=== PATIENT | female | born 1930 | race Caucasian/White ===

== ENCOUNTER 2016-09-26 08:53 | Inpatient (IN) | payer OTHER, MEDICARE ==
[2016-09-26] VITALS (7 sets, daily range): BP systolic 114–185; BP diastolic 55–117; PULSE 49–95; RESP 16–20; TEMP 97.4–99.5; O2SAT 89–98
[~2016-09-26] VITALS: Ht 167.6 cm; Wt 79.4 kg
[~2016-09-26 08:53] MED LIST: CALC250 PO; CHLO25 PO; FOLI1TAB PO; IRON325T2 OR; LISI-363 PO; MACR100C PO; MAGN30S PO; NORC7.5T PO; PROT40TA PO; SENN1TAB11 PO; SIMV10 PO; SLOWTAB PO; VITA100T13 PO; XARE10TA PO
[2016-09-26] MEDS ORDERED: ONDANSETRON HCL 4 MG/2 ML VIAL ONE (09:10)
[2016-09-26 09:24] LABS: AUTOMATED NEUTROPHIL # 7.5 TH/MM3 (1.8-7.7); BASOPHIL # 0.1 TH/MM3 (0-0.2); BASOPHIL % 0.5 % (0.0-2.0); EOSINOPHIL # 0.1 TH/MM3 (0-0.4); EOSINOPHIL % 0.6 % (0.0-4.0); HEMATOCRIT 33.9 % (35.0-46.0); HEMO FLAGS DIFF FINAL; LYMPH % 15.6 % (9.0-44.0); LYMPHOCYTE # 1.5 TH/MM3 (1.0-4.8); MEAN CELL VOLUME 91.9 FL (80.0-100.0); MEAN CORPUSCULAR HEMOGLOBIN 30.5 PG (27.0-34.0); MEAN CORPUSCULAR HGB CONC 33.2 % (32.0-36.0); MONO % 6.3 % (0.0-8.0); PLATELET COUNT 194 TH/MM3 (150-450); RED BLOOD COUNT 3.69 MIL/MM3 (4.00-5.30); RED CELL DISTRIBUTION WIDTH 13.4 % (11.6-17.2); WHITE BLOOD COUNT 9.8 TH/MM3 (4.0-11.0)
--- NOTE | 2016-09-26 09:29 | PD ---
HPI Chief Complaint: Chest Pain Time Seen by Provider: 09:25 Travel History International Travel<30 days: No Contact w/Intl Traveler<30days: No Traveled to known affect area: No History of Present Illness HPI 85-year-old female with history of hypertension, previous hysterectomy, presents to the ER today because of one day history of right sided chest pains with nausea and vomiting. She denies any fevers, diarrhea, or other symptoms. She does not know any exacerbating or alleviating factors. She states the pain is currently a 10 out of 10 and has no radiation. She denies any previous symptoms. Modifying Factors: None Associated Signs & Symptoms: Right sided chest pain with nausea and vomiting Risk Factors: None PFSH Past Medical History Arthritis: Yes Autoimmune Disease: No Cancer: No Cardiovascular Problems: Yes High Cholesterol: Yes Diminished Hearing: No Endocrine: No Genitourinary: Yes Hypertension: Yes (PORTAL HTN) Immune Disorder: No Musculoskeletal: Yes Neurologic: No Psychiatric: No Reproductive: No Respiratory: No Past Surgical History Hysterectomy: Yes Pacemaker: No Social History Alcohol Use: Yes (1-2 GLASSES OF WINE DAILY) Tobacco Use: No Substance Use: No Allergies-Medications (Allergen,Severity, Reaction): Coded Allergies: No Known Allergies (Unverified , 08/19/13) Reported Meds & Prescriptions Reported Meds & Active Scripts Active Reported Fish Oil + D3 (Fish Oil-Cholecalciferol) 1,200-1,000 Mg-Unit Cap 1 Cap PO TID Zocor (Simvastatin) 10 Mg Tab 10 Mg PO DAILY Review of Systems Except as stated in HPI: all other systems reviewed are Neg Physical Exam Narrative GENERAL: Pleasant elderly white female who is well-developed, awake, alert, oriented 3. Currently in moderate distress. Holding a vomit bag. SKIN: Focused skin assessment warm/dry. HEAD: Atraumatic. Normocephalic. EYES: Pupils equal and round. No scleral icterus. No injection or drainage. ENT: No nasal bleeding or discharge. Mucous membranes pink and moist. NECK: Trachea midline. No JVD. CARDIOVASCULAR: Regular rate and rhythm. No murmur appreciated. RESPIRATORY: No accessory muscle use. Intermittent crackles at both bases. Breath sounds equal bilaterally. GASTROINTESTINAL: Abdomen soft, right upper quadrant tenderness without guarding or rebound, nondistended. Hepatic and splenic margins not palpable. MUSCULOSKELETAL: No obvious deformities. No clubbing. No cyanosis. No edema. NEUROLOGICAL: Awake and alert. No obvious cranial nerve deficits. Motor grossly within normal limits. Normal speech. PSYCHIATRIC: Appropriate mood and affect; insight and judgment normal. Data Data Last Documented VS Vital Signs Date Time Temp Pulse Resp B/P Pulse Ox O2 Delivery O2 Flow Rate FiO2 09/26/16 10:15 14 09/26/16 09:23 98 Nasal Cannula 2 09/26/16 09:23 51 09/26/16 09:16 97.7 185/96 Orders Electrocardiogram (09/26/16 09:08) Complete Blood Count With Diff (09/26/16 09:08) Basic Metabolic Panel (Bmp) (09/26/16 09:08) Ckmb (Isoenzyme) Profile (09/26/16 09:08) Troponin I (09/26/16 09:08) Chest, Single Ap (09/26/16 09:08) Iv Access Insert/Monitor (09/26/16 09:08) Ecg Monitoring (09/26/16 09:08) Oxygen Administration (09/26/16 09:08) Oximetry (09/26/16 09:08) Ondansetron Inj (Zofran Inj) (09/26/16 09:10) Hepatic Functional Panel (09/26/16 09:25) Lipase (09/26/16 09:25) Ct Abd/Pel W Iv Contrast(Rout) (09/26/16 09:25) Hydromorphone Pf Inj (Dilaudid Pf Inj) (09/26/16 09:30) Ondansetron Inj (Zofran Inj) (09/26/16 10:45) Labs Laboratory Tests Test 09/26/16 09:10 White Blood Count 9.8 TH/MM3 Red Blood Count 3.69 MIL/MM3 Hemoglobin 11.2 GM/DL Hematocrit 33.9 % Mean Corpuscular Volume 91.9 FL Mean Corpuscular Hemoglobin 30.5 PG Mean Corpuscular Hemoglobin 33.2 % Concent Red Cell Distribution Width 13.4 % Platelet Count 194 TH/MM3 Mean Platelet Volume 8.5 FL Neutrophils (%) (Auto) 77.0 % Lymphocytes (%) (Auto) 15.6 % Monocytes (%) (Auto) 6.3 % Eosinophils (%) (Auto) 0.6 % Basophils (%) (Auto) 0.5 % Neutrophils # (Auto) 7.5 TH/MM3 Lymphocytes # (Auto) 1.5 TH/MM3 Monocytes # (Auto) 0.6 TH/MM3 Eosinophils # (Auto) 0.1 TH/MM3 Basophils # (Auto) 0.1 TH/MM3 CBC Comment DIFF FINAL Differential Comment Sodium Level 140 MEQ/L Potassium Level 3.7 MEQ/L Chloride Level 104 MEQ/L Carbon Dioxide Level 27.6 MEQ/L Anion Gap 8 MEQ/L Blood Urea Nitrogen 27 MG/DL Creatinine 1.06 MG/DL Estimat Glomerular Filtration 50 ML/MIN Rate Random Glucose 146 MG/DL Calcium Level 9.6 MG/DL Total Bilirubin 0.4 MG/DL Direct Bilirubin 0.1 MG/DL Indirect Bilirubin 0.3 MG/DL Aspartate Amino Transf 19 U/L (AST/SGOT) Alanine Aminotransferase 22 U/L (ALT/SGPT) Alkaline Phosphatase 62 U/L Total Creatine Kinase 56 U/L Troponin I 0.06 NG/ML Total Protein 8.0 GM/DL Albumin 3.6 GM/DL Lipase 168 U/L [facility] Medical Decision Making Medical Screen Exam Complete: Yes Emergency Medical Condition: Yes Medical Record Reviewed: Yes Interpretation(s) EKG shows sinus bradycardia rate of 50 bpm with a right bundle branch block pattern. No signs of acute ST-T elevations or depressions. Laboratory Tests Test 09/26/16 09:10 Red Blood Count 3.69 MIL/MM3 (4.00-5.30) Hemoglobin 11.2 GM/DL (11.6-15.3) Hematocrit 33.9 % (35.0-46.0) Neutrophils (%) (Auto) 77.0 % (16.0-70.0) Blood Urea Nitrogen 27 MG/DL (7-18) Creatinine 1.06 MG/DL (0.50-1.00) Estimat Glomerular Filtration 50 ML/MIN (>89) Rate Random Glucose 146 MG/DL (74-106) Troponin I 0.06 NG/ML (0.02-0.05) Last 24 hours Impressions Abdomen/Pelvis CT 09/26/16 0948 Signed Impressions: Service Date/Time: Monday, September 26, 2016 10:02 - CONCLUSION: 1. Small hiatal hernia. 2. Hepatic steatosis. 3. Cholelithiasis. There is mild gallbladder wall thickening and gallbladder distention noted. The possibility of cholecystitis should be entertained. 4. Diverticulosis. Butch Watson MD Chest X-Ray 09/26/16 0908 Signed Impressions: Service Date/Time: Monday, September 26, 2016 09:27 - CONCLUSION: Small left effusion versus scarring suspected. Right hilar mass should be excluded with CT chest with contrast. Butch Watson MD Differential Diagnosis Right lower lobe pneumonia versus cholecystitis versus hepatitis versus gastroenteritis Narrative Course CAT scans reveal a gallbladder wall thickening concerning for underlying cholecystitis. Symptoms are concerning for cholecystitis. EKG shows sinus bradycardia and troponin is mildly elevated. At this point, patient will need further evaluation of her heart as well as gallbladder. My plan would be to admit the patient medically for further evaluation. Case was discussed with Dr. Douglas for admission. Diagnosis Primary Impression: Atypical chest pain Additional Impressions: Cholecystitis Elevated troponin Admitting Information Admitting Physician Requests: Admit Santosh Quarles MD Sep 26, 2016 09:29
[2016-09-26] MEDS ORDERED: HYDROmorphone HCL PF 1 MG/ML VIAL IV PUSH ONE (09:30)
[2016-09-26 09:43] LABS: BICARBONATE 27.6 MEQ/L (21.0-32.0); POTASSIUM 3.7 MEQ/L (3.5-5.1)
[2016-09-26] MEDS ORDERED: ZOCO10TA PO (09:47)
--- NOTE | 2016-09-26 09:52 | RADRPT ---
EXAM DATE/TIME: 09/26/2016 09:27 [facility] COMPARISON: No previous studies available for comparison. INDICATIONS : Chest pain. MEDICAL HISTORY : None. SURGICAL HISTORY : None. ENCOUNTER: Initial ACUITY: 2 days PAIN SCORE: 10/10 LOCATION: Right chest FINDINGS: There is cardiomegaly. There is blunting of the left lateral costophrenic angle suggesting a small ef fusion. There is asymmetric prominence of the right hilum. A right hilar mass is not excluded. CONCLUSION: Small left effusion versus scarring suspected. Right hilar mass should be excluded with CT chest with contrast. Butch Watson MD on September 26, 2016 at 9:50 Board Certified Radiologist. This report was verified electronically.
[2016-09-26] MEDS ORDERED: FISHCAP4 PO (10:03)
[2016-09-26 10:20] LABS: INDIRECT BILIRUBIN 0.3 MG/DL (0.0-0.8); TOTAL BILIRUBIN ADULT 0.4 MG/DL (0.2-1.0)
[2016-09-26] MEDS ORDERED: ONDANSETRON HCL 4 MG/2 ML VIAL IV PUSH ONE (10:45)
--- NOTE | 2016-09-26 10:47 | RADRPT ---
EXAM DATE/TIME: 09/26/2016 10:02 [facility] COMPARISON: No previous studies available for comparison. INDICATIONS : Right side abdominal pain with nausea and vomiting. IV CONTRAST: 80 cc Omnipaque 350 (iohexol) IV ORAL CONTRAST: No oral contrast ingested. RADIATION DOSE: 9.96 CTDIvol (mGy) MEDICAL HISTORY : Hypertension. SURGICAL HISTORY : Hysterectomy. ENCOUNTER: Initial ACUITY: 1 day PAIN SCALE: 10/10 LOCATION: Right upper quadrant TECHNIQUE: Volumetric scanning of the abdomen and pelvis was performed. Using automated exposure control and ad justment of the mA and/or kV according to patient size, radiation dose was kept as low as reasonably achievable to obtain optimal diagnostic quality images. FINDINGS: There is a small hiatal hernia. Cholelithiasis is noted and hepatic steatosis. The spleen, pancreas, bilateral adrenal glands, and liver are otherwise unremarkable. There is a small exophytic cyst left whole kidney posteriorly. There is a small exophytic cyst of the upper pole of the right kidney poste riorly. Atherosclerotic calcifications of the aorta and iliac vessels are seen. Urinary bladder is un remarkable. The patient is status post hysterectomy. No adnexal masses. There is diverticulosis of th e sigmoid colon and descending colon as well as transverse and ascending colonic diverticuli. The ed endix is normal. There is a fat containing umbilical hernia identified. No obstruction, free fluid or free air. Duodenal diverticulum is noted third portion of the duodenum measuring 47 cm in transverse dimension. There are degenerative changes of the spine. Right hip arthroplasty. Lung bases are clear . There is mild gallbladder wall thickening and gallbladder distention seen. CONCLUSION: 1. Small hiatal hernia. 2. Hepatic steatosis. 3. Cholelithiasis. There is mild gallbladder wall thickening and gallbladder distention noted. The po ssibility of cholecystitis should be entertained. 4. Diverticulosis. Butch Watson MD on September 26, 2016 at 10:43 Board Certified Radiologist. This report was verified electronically.
[2016-09-26] MEDS ORDERED: [UNRECOGNIZED DRUG - OTHER] (11:51)
[2016-09-26] MEDS ORDERED: LYSI1TAB4 (11:56)
[2016-09-26] MEDS ORDERED: VITA60003 PO (11:56)
[2016-09-26] MEDS ORDERED: OMEP20TA PO (12:01)
[2016-09-26] MEDS ORDERED: ASCO500C PO (12:01)
[2016-09-26] MEDS ORDERED: CHOL1CAP14 PO (12:01)
[2016-09-26] MEDS ORDERED: B12-1CHW PO (12:01)
--- NOTE | 2016-09-26 12:22 | EKG ---
Date Performed: 09/26/2016 Time Performed: 09:02:49 PTAGE: 85 years EKG: SINUS BRADYCARDIA RIGHT BUNDLE BRANCH BLOCK ABNORMAL ECG PREVIOUS TRACING : 08/19/2013 22.56 DOCTOR: Wesley Wan Interpretating Date/Time 09/26/2016 12:20:05
[2016-09-26] MEDS ORDERED: NALOXONE HCL 0.4 MG/ML AMP IV PRN (13:30)
[2016-09-26] MEDS ORDERED: MORPHINE SULFATE 4 MG/ML INJ IV PRN (13:30)
[2016-09-26] MEDS ORDERED: SENNOSIDES 8.6 MG TAB PO PRN (13:30)
[2016-09-26] MEDS ORDERED: SODIUM CHLORIDE 0.9% FLUSH 10 ML FLUSH IV FLUSH PRN (13:30)
[2016-09-26] MEDS ORDERED: ACETAMINOPHEN 325 MG TAB PO PRN ×2 (13:30)
[2016-09-26] MEDS ORDERED: SODIUM CHLOR 0.9% 1000 ML INJ 1,000 ML IV SCH (14:00)
--- NOTE | 2016-09-26 14:23 | RADRPT ---
EXAM DATE/TIME: 09/26/2016 13:37 [facility] COMPARISON: CT ABDOMEN & PELVIS W CONTRAST, September 26, 2016, 10:02. INDICATIONS : Right chest pain, nausea and vomiting. MEDICAL HISTORY : Hypertension. Hypercholesterolemia. SURGICAL HISTORY : Hysterectomy. ENCOUNTER: Initial ACUITY: 1 day PAIN SCORE: 4/10 LOCATION: Right upper quadrant MEASUREMENTS: LIVER: 15.6 cm length COMMON DUCT: 5 mm RIGHT KIDNEY: 9.5 x 5.1 x 4.1 cm FINDINGS: LIVER: Increased echotexture without focal lesion or ductal dilatation. COMMON DUCT: No intraluminal mass or stone visualized. GALLBLADDER: There are stones and sludge within the gallbladder. Wall thickness measures 8 mm. No pericholecystic fluid is present. Sonographic Mandujano's sign is negative. PANCREAS: The visualized portions are within normal limits. RIGHT KIDNEY: No evidence of hydronephrosis, stone, or mass. CONCLUSION: 1. Cholelithiasis with gallbladder wall thickening. However, sonographic Mandujano's sign is negative. T here are not definitive findings to diagnose acute cholecystitis by ultrasound. HIDA scan can help ev aluate for cystic duct obstruction, if needed. 2. Hepatic steatosis. Esdras Hunt MD on September 26, 2016 at 14:19 Board Certified Radiologist. This report was verified electronically.
[2016-09-26] MEDS: HEPARIN SODIUM - SQ 10,000 UNITS/ML VIAL SQ SCH ×2 (14:44→22:12)
[2016-09-26] MEDS ORDERED: cloNIDine HCL 0.1 MG TAB PO PRN (15:30)
[2016-09-26] MEDS ORDERED: LORazepam 2 MG TAB PO PRN (15:30)
[2016-09-26] MEDS ORDERED: ENALAPRILAT 1.25 MG/ML VIAL IV PUSH PRN (15:30)
[2016-09-26] MEDS ORDERED: FLUMAZENIL 0.5 MG/5 ML VIAL IV PUSH PRN (15:30)
[2016-09-26] MEDS ORDERED: LORazepam 2 MG/ML VIAL IV PUSH PRN ×2 (15:30)
--- NOTE | 2016-09-26 15:48 | HHI.HP ---
[facility] Service [facility] Primary Care Physician Billy Mead MD Admission Diagnosis right sided chest pain/elevated troponin/cholecystitis Diagnoses: Chief Complaint: Chest pain Travel History International Travel<30 Days: No Contact w/Intl Traveler <30 Da: No Traveled to Known Affected Are: No History of Present Illness The patient is an 85-year-old female with a past medical history of hypertension and hyperlipidemia who is presenting to the hospital with chest pain. She says it is located in the middle and the right side of the chest and is quite severe at times. She is unsure of what makes it come and go. She also describes a pain that goes across her back which she states has been present for some time. She blames old age for the back pain. She denies any abdominal pain. She has not been vomiting. She does endorse decreased appetite for the past month. She says she has been weak and has been going to physical therapy. She says that she is weak in the legs. She says she is not using a cane or a walker because she does not want to use those devices at this time. The patient says she drinks 2-3 large glasses of wine daily. Review of Systems Except as stated in HPI: all other systems reviewed are Neg Past Family Social History Past Medical History Right femoral neck fracture status post right bipolar hip repair Hypertension Hyperlipidemia History of cataract surgery History of hysterectomy Daily ETOH use Allergies: Coded Allergies: No Known Allergies (Unverified , 08/19/13) Active Ordered Medications Current Medications Medications (Trade) Dose Ordered Sig/Cristian Route Start Time Stop Time Status Last Admin (Vitamin D3) 1,000 units DAILY PO 09/27/16 09:00 (Protonix) 20 mg DAILY PO 09/27/16 09:00 Pravastatin Sodium 20 mg 20 mg DAILY PO 09/27/16 09:00 (NS 1000 ml Inj) 1,000 ml @ 100 mls/hr Q10H IV 09/26/16 14:00 09/26/16 23:59 (NS Flush) 2 ml UNSCH PRN IV FLUSH 09/26/16 13:30 (NS Flush) 2 ml BID IV FLUSH 09/26/16 21:00 (Tylenol) 650 mg Q4H PRN PO 09/26/16 13:30 (Zofran Inj) 4 mg Q6H PRN IVP 09/26/16 13:30 (Colace) 100 mg Q12HR PO 09/26/16 14:00 (Senokot) 17.2 mg Q12H PRN PO 09/26/16 13:30 (Heparin Inj) 5,000 units Q8HR SQ 09/26/16 14:00 09/26/16 14:44 (Tylenol) 650 mg Q6H PRN PO 09/26/16 13:30 09/26/16 14:40 (Roxicodone) 10 mg Q4H PRN PO 09/26/16 14:00 (Morphine Inj) 4 mg Q3H PRN IV 09/26/16 13:30 (Roxicodone) 5 mg Q4H PRN PO 09/26/16 13:30 (Narcan Inj) 0.4 mg UNSCH PRN IV 09/26/16 13:30 Family History The patient denies pertinent family history. Social History The patient drinks 2-3 large glasses of wine daily. She does not smoke. Physical Exam Vital Signs Vital Signs Date Time Temp Pulse Resp B/P Pulse Ox O2 Delivery O2 Flow Rate FiO2 09/26/16 14:44 65 16 168/75 96 Nasal Cannula 2 09/26/16 12:24 97.9 64 20 177/117 92 Room Air 09/26/16 10:15 14 09/26/16 09:23 98 Nasal Cannula 2 09/26/16 09:23 16 89 Room Air 09/26/16 09:23 51 98 Nasal Cannula 2 09/26/16 09:16 97.7 49 16 185/96 89 Physical Exam GENERAL: This is a well-nourished, well-developed patient, in no apparent distress. SKIN: No rashes, ecchymoses or lesions. Cool and dry. HEAD: Atraumatic. Normocephalic. No temporal or scalp tenderness. EYES: Pupils equal round and reactive. Extraocular motions intact. No scleral icterus. No injection or drainage. ENT: Nose without bleeding, purulent drainage or septal hematoma. Throat without erythema, tonsillar hypertrophy or exudate. Uvula midline. Airway patent. NECK: Trachea midline. No JVD or lymphadenopathy. Supple, nontender, no meningeal signs. CARDIOVASCULAR: Bradycardic without murmurs, gallops, or rubs. RESPIRATORY: Clear to auscultation. Breath sounds equal bilaterally. No wheezes , rales, or rhonchi. GASTROINTESTINAL: Abdomen soft, generalized tenderness to palpation, nondistended. No hepato-splenomegaly, or palpable masses. No guarding. MUSCULOSKELETAL: Extremities without clubbing, cyanosis, or edema. No joint tenderness, effusion, or edema noted. NEUROLOGICAL: Mild tremors of the upper extremities. Awake and alert. Cranial nerves II through XII intact. Motor and sensory grossly within normal limits. Five out of 5 muscle strength in all muscle groups. Normal speech. Laboratory Laboratory Tests Test 09/26/16 09:10 White Blood Count 9.8 Red Blood Count 3.69 Hemoglobin 11.2 Hematocrit 33.9 Mean Corpuscular Volume 91.9 Mean Corpuscular Hemoglobin 30.5 Mean Corpuscular Hemoglobin 33.2 Concent Red Cell Distribution Width 13.4 Platelet Count 194 Mean Platelet Volume 8.5 Neutrophils (%) (Auto) 77.0 Lymphocytes (%) (Auto) 15.6 Monocytes (%) (Auto) 6.3 Eosinophils (%) (Auto) 0.6 Basophils (%) (Auto) 0.5 Neutrophils # (Auto) 7.5 Lymphocytes # (Auto) 1.5 Monocytes # (Auto) 0.6 Eosinophils # (Auto) 0.1 Basophils # (Auto) 0.1 CBC Comment DIFF FINAL Differential Comment Sodium Level 140 Potassium Level 3.7 Chloride Level 104 Carbon Dioxide Level 27.6 Anion Gap 8 Blood Urea Nitrogen 27 Creatinine 1.06 Estimat Glomerular Filtration 50 Rate Random Glucose 146 Calcium Level 9.6 Total Bilirubin 0.4 Direct Bilirubin 0.1 Indirect Bilirubin 0.3 Aspartate Amino Transf 19 (AST/SGOT) Alanine Aminotransferase 22 (ALT/SGPT) Alkaline Phosphatase 62 Total Creatine Kinase 56 Troponin I 0.06 Total Protein 8.0 Albumin 3.6 Lipase 168 Result Diagram: 09/26/1690909/26/16909 Imaging Last Impressions Abdomen/Pelvis CT 09/26/1625 Signed Impressions: Service Date/Time: Monday, September 26, 2016 10:02 - CONCLUSION: 1. Small hiatal hernia. 2. Hepatic steatosis. 3. Cholelithiasis. There is mild gallbladder wall thickening and gallbladder distention noted. The possibility of cholecystitis should be entertained. 4. Diverticulosis. Butch Watson MD Chest X-Ray 09/26/16 0908 Signed Impressions: Service Date/Time: Monday, September 26, 2016 09:27 - CONCLUSION: Small left effusion versus scarring suspected. Right hilar mass should be excluded with CT chest with contrast. Butch Watson MD Gall Bladder Ultrasound 09/26/16 0000 Signed Impressions: Service Date/Time: Monday, September 26, 2016 13:37 - CONCLUSION: 1. Cholelithiasis with gallbladder wall thickening. However, sonographic Mandujano's sign is negative. There are not definitive findings to diagnose acute cholecystitis by ultrasound. HIDA scan can help evaluate for cystic duct obstruction, if needed. 2. Hepatic steatosis. Esdras Hunt MD Assessment and Plan Assessment and Plan Chest pain/ Right hilar mass The patient presented with right-sided chest pain and chest x-ray cannot exclude a right hilar mass. EKG with sinus bradycardia and right bundle branch block. Initial troponin 0.06, increased to 0.19. - CT chest with contrast pending to further evaluate hilar mass. - Trend troponins and monitor on telemetry. - EKG now and in the a.m. - Pain control with a bowel regimen. - Oxygen as needed. - stress test in AM. Pt is NPO at midnight. Cholecystitis CT of the abdomen revealed questionable cholecystitis. Right upper quadrant ultrasound also with cholelithiasis and gallbladder wall thickening. LFTs unremarkable. No Mandujano sign. - Serial abdominal exams. - HIDA scan if symptoms progress her LFTs become elevated. - Pain control and antiemetics as needed. - PPI. Daily alcohol use The patient endorses 2-3 large glasses of wine daily. She is somewhat tremulous. 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 - [facility] protocol. - Cessation instruction. - PT/ OT evals. HTN Blood pressure has been elevated. Likely exacerbated by withdrawal. - Start amlodipine and adjust as needed. - Clonidine and Vasotec as needed. Renal insufficiency Likely secondary to decreased by mouth intake. - IV fluids and monitor. Hyperglycemia Unsure of baseline. - Check a hemoglobin A1c. PPx: Heparin. Code Status Full. Discussed Condition With Patient, nurse, Dr. Dobson. Leonard Gibbs DO Sep 26, 2016 15:48
[2016-09-26] MEDS: DOCUSATE SODIUM 100 MG CAP PO SCH ×2 (16:17→22:00)
[2016-09-26] MEDS: amLODIPine BESYLATE 5 MG TAB PO SCH (16:17)
[2016-09-26] MEDS ORDERED: IOHEXOL 350 MG/ML 10 ML VIAL (for RAD DIAG) IV ONE (17:20)
--- NOTE | 2016-09-26 17:27 | RADRPT ---
EXAM DATE/TIME: 09/26/2016 17:14 [facility] COMPARISON: US ABDOMEN - GALLBLADDER, September 26, 2016, 13:37. INDICATIONS : Right sided chest pain and lung mass. IV CONTRAST: 75 cc Omnipaque 350 (iohexol) IV RADIATION DOSE: 9.89 CTDIvol (mGy) MEDICAL HISTORY : Dementia. Cardiovascular disease Hypertension. SURGICAL HISTORY : Hysterectomy. ENCOUNTER: Initial ACUITY: 1 day PAIN SCALE: 5/10 LOCATION: Right chest TECHNIQUE: Volumetric scanning of the chest was performed. Using automated exposure control and adjustment of t he mA and/or kV according to patient size, radiation dose was kept as low as reasonably achievable to obtain optimal diagnostic quality images. FINDINGS: LUNGS: There is no consolidation or pneumothorax. No concerning pulmonary nodule is visualized. Sub-4 mm no dules are seen along the interlobar fissure on the right. PLEURA: There is no pleural thickening or pleural effusion. MEDIASTINUM: The heart and great vessels demonstrate no acute abnormality. There is no mediastinal or hilar lymph adenopathy. AXILLAE: Within normal limits. No lymphadenopathy. SKELETAL: Within normal limits for patient age. MISCELLANEOUS: The gallbladder is mildly to moderately distended it demonstrates wall thickening. CONCLUSION: No acute cardiopulmonary process. Subcentimeter nodules along the right interlobar fissure consistent with small lymph nodes. No evidence of suspicious pulmonary mass Distended gallbladder with wall thickening. Abdelrahman Hernandez MD on September 26, 2016 at 17:23 Board Certified Radiologist. This report was verified electronically.
[2016-09-26] MEDS: NYSTATIN 100,000 UNIT/GM CREAM 15 GM TOPICAL SCH ×2 (17:29→22:59)
[2016-09-26] MEDS: ONDANSETRON HCL 4 MG/2 ML VIAL IVP PRN (17:29)
[2016-09-26] MEDS: SODIUM CHLORIDE 0.9% FLUSH 10 ML FLUSH IV FLUSH SCH (22:01)
[2016-09-26 22:21] LABS: HEMOGLOBIN A1b 1.6 %; HEMOGLOBIN Ao 84.1 %; HEMOGLOBIN LA1C 2.6 %; HEMOGLOBIN P3 5.7 %
[2016-09-27] VITALS (7 sets, daily range): BP systolic 90–137; BP diastolic 45–94; PULSE 76–91; RESP 16–20; TEMP 96.8–99; O2SAT 87–96
[2016-09-27] MEDS: HEPARIN SODIUM - SQ 10,000 UNITS/ML VIAL SQ SCH ×3 (06:00→21:48)
[2016-09-27 07:09] LABS: AUTOMATED NEUTROPHIL # 21.1 TH/MM3 (1.8-7.7); BASOPHIL % 0.1 % (0.0-2.0); HEMO FLAGS DIFF FINAL; LYMPH % 4.8 % (9.0-44.0); LYMPHOCYTE # 1.2 TH/MM3 (1.0-4.8); MEAN CELL VOLUME 91.7 FL (80.0-100.0); MEAN CORPUSCULAR HEMOGLOBIN 30.3 PG (27.0-34.0); MONO % 6.6 % (0.0-8.0); NEUT % 88.5 % (16.0-70.0); PLATELET COUNT 195 TH/MM3 (150-450); RED BLOOD COUNT 3.49 MIL/MM3 (4.00-5.30); RED CELL DISTRIBUTION WIDTH 13.2 % (11.6-17.2); WHITE BLOOD COUNT 23.8 TH/MM3 (4.0-11.0)
[2016-09-27 07:33] LABS: ALT (GPT) 22 U/L (10-53); ANION GAP 8 MEQ/L (5-15); AST (GOT) 17 U/L (15-37); BICARBONATE 26.8 MEQ/L (21.0-32.0); BLOOD UREA NITROGEN 27 MG/DL (7-18); CHLORIDE 107 MEQ/L (98-107); GLOMERULAR FILTRATION RATE 40 ML/MIN (>89); POTASSIUM 4.1 MEQ/L (3.5-5.1); SODIUM (NA) 142 MEQ/L (136-145)
[2016-09-27 07:34] LABS: ALKALINE PHOSPHATASE 57 U/L (45-117); TOTAL BILIRUBIN ADULT 0.9 MG/DL (0.2-1.0)
[2016-09-27] MEDS: ONDANSETRON HCL 4 MG/2 ML VIAL IVP PRN ×2 (08:21→14:08)
[2016-09-27] MEDS: SODIUM CHLORIDE 0.9% FLUSH 10 ML FLUSH IV FLUSH SCH ×2 (08:21→21:48)
[2016-09-27] MEDS: DOCUSATE SODIUM 100 MG CAP PO SCH ×2 (08:21→21:49)
[2016-09-27] MEDS: amLODIPine BESYLATE 5 MG TAB PO SCH (08:22)
[2016-09-27] MEDS: PRAVASTATIN SOD 20 MG TAB PO SCH (08:22)
[2016-09-27] MEDS: NYSTATIN 100,000 UNIT/GM CREAM 15 GM TOPICAL SCH ×2 (08:23→21:49)
[2016-09-27] MEDS ORDERED: DEXT 5%-NACL 0.45% 1000 ML INJ 1,000 ML IV SCH (08:45)
[2016-09-27] MEDS ORDERED: PANTOPRAZOLE SOD 20 MG DELAYED RELEASE TAB PO SCH (09:00)
[2016-09-27] MEDS ORDERED: CHOLECALCIFEROL (VIT D3) 5000 UNIT CAP PO SCH (09:00)
[2016-09-27] MEDS ORDERED: REGADENOSON INJ 0.4 MG/5 ML SYR ONE (11:23)
[2016-09-27] MEDS ORDERED: AMINOPHYLLINE INJ 250 MG/10 ML VIAL ONE (11:37)
--- NOTE | 2016-09-27 13:37 | RADRPT ---
EXAM DATE/TIME: 09/27/2016 10:16 [facility] COMPARISON: CT THORAX W CONTRAST, September 26, 2016, 17:14. INDICATIONS : Right chest pain radiating to her back. Right bundle branch block. DOSE: 27.3 mCi Tc99m Myoview at stress. 8.3 mCi Tc99m Myoview at rest. 0.4 mg Lexiscan STRESS SYMPTOMS: Chest pain and nausea. MEDICATIONS: 1.) 100 mg Aminophylline IV EJECTION FRACTION: > 70% MEDICAL HISTORY : Hypercholesterolemia. Hypertension. SURGICAL HISTORY : Hysterectomy. ENCOUNTER: Initial ACUITY: 1 day PAIN SCALE: 8/10 LOCATION: Right chest TECHNIQUE: The patient underwent pharmacologic stress with infusion of prescribed dose. Continuous ECG tracing was monitored during stress. Gated SPECT imaging was performed after stress and conventional SPECT i maging was performed at rest. The examination was performed on a SPECT/CT scanner, both attenuation and non-corrected datasets were reviewed. FINDINGS: DISTRIBUTION: The maximum perfused segment at stress is in the anterolateral wall. PERFUSION STUDY: The pattern of perfusion at stress is within normal limits. No fixed or reversible perfusion defect i s identified. GATED STUDY: There is intact wall motion and thickening without hypokinetic or dyskinetic segments. CONCLUSION: 1. No fixed or reversible perfusion defect is identified. 2. Normal left ventricle wall motion and ejection fraction. RISK CATEGORY: Low (<1% Annual Mortality Rate) Esdras Hunt MD on September 27, 2016 at 13:32 Board Certified Radiologist. This report was verified electronically.
[2016-09-27] MEDS: PIPERACIL-TAZO 3.375 GM PREMIX 50 ML IV SCH ×2 (14:08→21:48)
--- NOTE | 2016-09-27 14:54 | HHI.PR ---
Subjective Remarks The patient was complaining of right upper quadrant pain and nausea. She had gone to the stress test earlier. Her was at the bedside. Their questions were answered. Objective Vitals Vital Signs Date Time Temp Pulse Resp B/P Pulse Ox O2 Delivery O2 Flow Rate FiO2 09/27/16 14:17 09/27/16 13:00 97.7 78 16 133/63 94 09/27/16 08:17 96.8 78 16 133/63 87 09/27/16 03:24 98.7 88 18 137/56 95 09/26/16 23:53 97.4 95 18 114/59 96 09/26/16 23:00 16 09/26/16 20:38 99.5 70 20 131/55 96 09/26/16 15:27 98.3 67 16 176/72 96 09/26/16 14:44 65 16 168/75 96 Nasal Cannula 2 I/O 09/26/16 09/26/16 09/26/16 09/27/16 09/27/16 09/27/16 06:59 14:59 22:59 06:59 14:59 22:59 Intake Total 0 ml Balance 0 ml Intake Oral 0 ml # Voids 2 1 1 Result Diagram: 09/27/1615 09/27/16 0615 Imaging Last Impressions Myocardial Perfusion Scan Nuc Med 09/27/16 0600 Signed Impressions: Service Date/Time: September 10:16 - CONCLUSION: 1. No fixed or reversible perfusion defect is identified. 2. Normal left ventricle wall motion and ejection fraction. RISK CATEGORY: Low (<1%% Annual Mortality Rate) Esdras Hunt MD Abdomen/Pelvis CT 09/26/16 09 Signed Impressions: Service Date/Time: Monday, September 26, 2016 10:02 - CONCLUSION: 1. Small hiatal hernia. 2. Hepatic steatosis. 3. Cholelithiasis. There is mild gallbladder wall thickening and gallbladder distention noted. The possibility of cholecystitis should be entertained. 4. Diverticulosis. Butch Watson MD Chest X-Ray 09/26/16 0908 Signed Impressions: Service Date/Time: Monday, September 26, 2016 09:27 - CONCLUSION: Small left effusion versus scarring suspected. Right hilar mass should be excluded with CT chest with contrast. Butch Watson MD Gall Bladder Ultrasound 09/26/16 0000 Signed Impressions: Service Date/Time: Monday, September 26, 2016 13:37 - CONCLUSION: 1. Cholelithiasis with gallbladder wall thickening. However, sonographic Mandujano's sign is negative. There are not definitive findings to diagnose acute cholecystitis by ultrasound. HIDA scan can help evaluate for cystic duct obstruction, if needed. 2. Hepatic steatosis. Esdras Hunt MD Chest CT 09/26/16 0000 Signed Impressions: Service Date/Time: Monday, September 26, 2016 17:14 - CONCLUSION: No acute cardiopulmonary process. Subcentimeter nodules along the right interlobar fissure consistent with small lymph nodes. No evidence of suspicious pulmonary mass Distended gallbladder with wall thickening. Abdelrahman Hernandez MD Objective Remarks GENERAL: This is a well-nourished, well-developed patient, in no apparent distress. SKIN: No rashes, ecchymoses or lesions. Cool and dry. HEAD: Atraumatic. Normocephalic. No temporal or scalp tenderness. EYES: Pupils equal round and reactive. Extraocular motions intact. No scleral icterus. No injection or drainage. ENT: Nose without bleeding, purulent drainage or septal hematoma. Throat without erythema, tonsillar hypertrophy or exudate. Uvula midline. Airway patent. NECK: Trachea midline. No JVD or lymphadenopathy. Supple, nontender, no meningeal signs. CARDIOVASCULAR: Bradycardic without murmurs, gallops, or rubs. RESPIRATORY: Clear to auscultation. Breath sounds equal bilaterally. No wheezes , rales, or rhonchi. GASTROINTESTINAL: Abdomen soft, generalized tenderness to palpation, worse in the right upper quadrant, nondistended. No hepato-splenomegaly, or palpable masses. No guarding. MUSCULOSKELETAL: Extremities without clubbing, cyanosis, or edema. No joint tenderness, effusion, or edema noted. NEUROLOGICAL: Mild tremors of the upper extremities. Awake and alert. Cranial nerves II through XII intact. Motor and sensory grossly within normal limits. Five out of 5 muscle strength in all muscle groups. Normal speech. PSYCH: Mood and affect appropriate. Medications and IVs Current Medications Medications (Trade) Dose Ordered Sig/Cristian Route Start Time Stop Time Status Last Admin (Vitamin D3) 1,000 units DAILY PO 09/27/16 09:00 09/27/16 08:22 (Pravachol) 20 mg DAILY PO 09/27/16 09:00 09/27/16 08:22 (NS Flush) 2 ml UNSCH PRN IV FLUSH 09/26/16 13:30 (NS Flush) 2 ml BID IV FLUSH 09/26/16 21:00 09/27/16 08:21 (Tylenol) 650 mg Q4H PRN PO 09/26/16 13:30 (Zofran Inj) 4 mg Q6H PRN IVP 09/26/16 13:30 09/27/16 14:08 (Colace) 100 mg Q12HR PO 09/26/16 14:00 09/27/16 08:21 (Senokot) 17.2 mg Q12H PRN PO 09/26/16 13:30 (Heparin Inj) 5,000 units Q8HR SQ 09/26/16 14:00 09/27/16 12:46 (Tylenol) 650 mg Q6H PRN PO 09/26/16 13:30 09/26/16 14:40 (Roxicodone) 10 mg Q4H PRN PO 09/26/16 14:00 09/27/16 14:11 (Morphine Inj) 4 mg Q3H PRN IV 09/26/16 13:30 (Roxicodone) 5 mg Q4H PRN PO 09/26/16 13:30 (Narcan Inj) 0.4 mg UNSCH PRN IV 09/26/16 13:30 (Norvasc) 5 mg DAILY PO 09/26/16 16:00 09/27/16 08:22 (Romazicon Inj) 0.2 mg Q1M PRN IV PUSH 09/26/16 15:30 (Ativan) 1 mg Q4H PRN PO 09/26/16 15:30 (Ativan) 2 mg Q2H PRN PO 09/26/16 15:30 (Ativan Inj) 2 mg Q1H PRN IV PUSH 09/26/16 15:30 (Ativan Inj) 2 mg Q15M PRN IV PUSH 09/26/16 15:30 (Catapres) 0.1 mg Q6H PRN PO 09/26/16 15:30 (Vasotec Inj) 1.25 mg Q6H PRN IV PUSH 09/26/16 15:30 Nystatin 1 applic 1 applic Q12HR TOPICAL 09/26/16 16:00 09/27/16 08:23 Dextrose/Sodium Chloride 1,000 ml @ 100 mls/hr Q10H IV 09/27/16 08:45 09/27/16 18:44 09/27/16 12:46 (Zosyn 3.375 Gm Premix) 50 ml @ 200 mls/hr Q6H IV 09/27/16 14:00 09/27/16 14:08 (Protonix Inj) 40 mg Q24H IV PUSH 09/27/16 14:45 UNV A/P Assessment and Plan Acute cholecystitis/ Cholangitis CT of the abdomen revealed questionable cholecystitis. Right upper quadrant ultrasound also with cholelithiasis and gallbladder wall thickening. LFTs unremarkable. 09/27 pt with worsening RUQ abdominal pain and nausea as well as marked leukocytosis. - Serial abdominal exams. - Pain control and antiemetics as needed. - PPI. - start Zosyn as there is concern for cholangitis. - blood cultures x 2. - general surgery consult pending. Chest pain/ Right hilar mass The patient presented with right-sided chest pain and chest x-ray cannot exclude a right hilar mass. EKG with sinus bradycardia and right bundle branch block. Trop peaked at 0.28. CT chest with contrast: No acute cardiopulmonary process; Subcentimeter nodules along the right interlobar fissure consistent with small lymph nodes; No evidence of suspicious pulmonary mass; Distended gallbladder with wall thickening. Stress test negative. - chest pain likely s/t above. Daily alcohol use The patient endorses 2-3 large glasses of wine daily. She is somewhat tremulous. 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 - [facility] protocol. - Cessation instruction. - PT/ OT evals. HTN Blood pressure improved. - Started amlodipine. Will hold for now as normotensive. Resume as needed. - Clonidine and Vasotec as needed. Renal insufficiency Likely secondary to decreased by mouth intake. - IV fluids and monitor. Hyperglycemia Unsure of baseline. Hemoglobin A1c 5.7%. - likely a stress reaction. PPx: Heparin. Discharge Planning Awaiting surgical eval. Leonard Gibbs DO Sep 27, 2016 14:53
[2016-09-27] MEDS ORDERED: SODIUM CHLOR 0.9% 1000 ML INJ 1,000 ML IV SCH (15:00)
[2016-09-27] MEDS: PANTOPRAZOLE SODIUM 40 MG VIAL IV PUSH SCH (15:00)
[2016-09-27 18:45] LABS: BACTERIA, URINE OCC /hpf; BLOOD, URINE TRACE (NEG); COMMENT (UR) CULTURE INDICATED; CULTURE IF INDICATED CULTURE INDICATED; GLUCOSE,URINE NEG (NEG); KETONE, URINE TRACE mg/dL (NEG); MUCUS URINE FEW /lpf (OCC); NITRITE,URINE NEG (NEG); SQUAMOUS EPITHELIAL CELL URINE 1 /hpf (0-5); URINE COLOR YELLOW (YELLW/STRAW)
[2016-09-28] VITALS (14 sets, daily range): BP systolic 88–136; BP diastolic 52–75; PULSE 74–144; RESP 18–25; TEMP 98.2–99.7; O2SAT 91–97
[2016-09-28] MEDS ORDERED: LORazepam 2 MG/ML VIAL IV PUSH ONE ×2 (01:15→01:45)
[2016-09-28] MEDS: PIPERACIL-TAZO 3.375 GM PREMIX 50 ML IV SCH ×4 (01:59→21:09)
[2016-09-28] MEDS ORDERED: DILTIAZEM HCL 30 MG TAB PO ONE (02:00)
[2016-09-28] MEDS ORDERED: DILTIAZEM HCL 25 MG/5 ML VIAL IV ONE (03:00)
[2016-09-28 03:17] LABS: AUTOMATED NEUTROPHIL # 16.9 TH/MM3 (1.8-7.7); BASOPHIL # 0.1 TH/MM3 (0-0.2); BASOPHIL % 0.5 % (0.0-2.0); EOSINOPHIL % 0.1 % (0.0-4.0); HEMATOCRIT 29.9 % (35.0-46.0); LYMPH % 6.4 % (9.0-44.0); LYMPHOCYTE # 1.2 TH/MM3 (1.0-4.8); MEAN CELL VOLUME 92.3 FL (80.0-100.0); MEAN CORPUSCULAR HEMOGLOBIN 30.7 PG (27.0-34.0); MEAN CORPUSCULAR HGB CONC 33.3 % (32.0-36.0); MONO % 5.9 % (0.0-8.0); NEUT % 87.1 % (16.0-70.0); PLATELET COUNT 155 TH/MM3 (150-450); RED BLOOD COUNT 3.24 MIL/MM3 (4.00-5.30); RED CELL DISTRIBUTION WIDTH 13.5 % (11.6-17.2); WHITE BLOOD COUNT 19.4 TH/MM3 (4.0-11.0)
[2016-09-28 03:33] LABS: ANION GAP 9 MEQ/L (5-15); BICARBONATE 26.8 MEQ/L (21.0-32.0); BLOOD UREA NITROGEN 36 MG/DL (7-18); CHLORIDE 106 MEQ/L (98-107); GLOMERULAR FILTRATION RATE 35 ML/MIN (>89); MAGNESIUM 1.6 MG/DL (1.5-2.5); POTASSIUM 3.7 MEQ/L (3.5-5.1); SODIUM (NA) 142 MEQ/L (136-145)
[2016-09-28 03:38] LABS: CREATINE KINASE 141 U/L (26-192)
[2016-09-28 03:51] LABS: BANDS 20 % (0-6); NEUTROPHIL # MANUAL DIFF 17.5 TH/MM3 (1.8-7.7); PLATELET ESTIMATE SMEAR NORMAL (NORMAL); PLATELET MORPHOLOGY NORMAL (NORMAL); POLYS (SEG NEUTROPHILS) 70 % (16-70); SCAN/DIFF FINAL DIFF MANUAL; WBC DIFF SAMPLE 100
[2016-09-28 04:00] LABS: ALKALINE PHOSPHATASE 49 U/L (45-117); ALT (GPT) 29 U/L (10-53); AST (GOT) 25 U/L (15-37); TOTAL BILIRUBIN ADULT 0.9 MG/DL (0.2-1.0)
[2016-09-28] MEDS ORDERED: DILTIAZEM INJ 125 MG in SODIUM CHLORIDE 0.9% INJ 100 ML IV SCH (04:15)
--- NOTE | 2016-09-28 05:14 | RADRPT ---
EXAM DATE/TIME: 09/28/2016 03:45 [place] COMPARISON: CHEST SINGLE AP, September 26, 2016, 9:27. INDICATIONS : Shortness of breath. MEDICAL HISTORY : Hypertension. Cardiovascular disease. SURGICAL HISTORY : None. ENCOUNTER: Subsequent ACUITY: 3 days PAIN SCORE: Non-responsive. LOCATION: Bilateral chest FINDINGS: There are infiltrates in both lung bases suggestive of atelectasis. The upper lung faulkner are grossly clear. Otherwise no significant change compared to the prior exam. The heart size is stable. The bon y structures are stable. CONCLUSION: Bibasilar infiltrates. Shahzad Emery MD on September 28, 2016 at 5:12 Board Certified Radiologist. This report was verified electronically.
[2016-09-28] MEDS: HEPARIN SODIUM - SQ 10,000 UNITS/ML VIAL SQ SCH ×3 (06:03→21:10)
[2016-09-28] MEDS: PRAVASTATIN SOD 20 MG TAB PO SCH (08:16)
[2016-09-28] MEDS: DOCUSATE SODIUM 100 MG CAP PO SCH ×2 (08:16→21:10)
[2016-09-28] MEDS: LORazepam 1 MG TAB PO PRN (08:16)
[2016-09-28] MEDS: SODIUM CHLORIDE 0.9% FLUSH 10 ML FLUSH IV FLUSH SCH ×2 (08:20→21:09)
[2016-09-28] MEDS: NYSTATIN 100,000 UNIT/GM CREAM 15 GM TOPICAL SCH ×2 (08:20→21:09)
--- NOTE | 2016-09-28 08:27 | EKG ---
Date Performed: 09/27/2016 Time Performed: 08:25:04 PTAGE: 85 years EKG: Sinus rhythm WITH OCCASIONAL SUPRAVENTRICULAR PREMATURE COMPLEXES RIGHT BUNDLE BRANCH BLOCK ABNORMAL ECG Compared to PREVIOUS TRACING , PAC is present. PREVIOUS TRACIN09/26/2016 16.05 DOCTOR: Axel Sales Interpretating Date/Time 09/28/2016 08:26:11
--- NOTE | 2016-09-28 08:27 | EKG ---
Date Performed: 09/26/2016 Time Performed: 16:05:22 PTAGE: 85 years EKG: Sinus rhythm RIGHT BUNDLE BRANCH BLOCK ABNORMAL ECG Compared to PREVIOUS TRACING , the sinus rate has increased. PREVIOUS TRACIN09/26/2016 09.02 DOCTOR: Aexl Sales Interpretating Date/Time 09/28/2016 08:25:53
[2016-09-28] MEDS ORDERED: PANTOPRAZOLE SOD 40 MG DELAYED RELEASE TAB PO SCH (09:00)
--- NOTE | 2016-09-28 09:20 | MB ---
cc: KATHE SILVEIRA M.D. DATE OF CONSULTATION 09/27/2016 REASON FOR CONSULTATION Abdominal pain, questionable cholelithiasis, cholecystitis. HISTORY This is an 85-year-old female who was recently admitted to the hospital with some chest pain. She had a cardiac workup and was found to have gallstones on imaging. She had some pain in her right upper quadrant on and off for some times and then came to the emergency room. She says she never had any pain like this before. A heart scan was done which was normal and imaging of her gallbladder showed an inflamed gallbladder and surgery was consulted. PAST MEDICAL HISTORY Significant for: 1. Hyperlipidemia 2. She had hysterectomy in the past. 3. She has had a longstanding umbilical hernia. 4. She says she has hypertension and hyperlipidemia and had a right leg fracture needing repair. 5. There is a possible history of alcohol abuse with DTs in the past. 6. She says she has no cardiac history and cardiac workup has been negative. 7. No pulmonary history. 8. She has high blood pressure. MEDICATIONS 1. Vitamin C, Vitamin D, lysine, B12 2. Omeprazole 3. Zocor 4. Vitamin E In the hospital here, she has been on some antibiotics: 1. Vasotec 2. Catapres 3. Norvasc 4. Tylenol 5. Zofran 6. Oxycodone 7. Protonix 8. Heparin subcu ALLERGIES She is not allergic to anything. PHYSICAL EXAM She is sitting up in bed. The first thing she says I'm ready to go home. I am leaving tomorrow. The doctors say I am okay, I can go home. She appears to be a little bit confused. NECK: Supple. No carotid bruits. CHEST: Clear. HEART: Regular rate. ABDOMEN: Obese, soft, umbilical hernia, tenderness in the right upper quadrant. No masses are appreciated. Her abdomen is somewhat firm. She does have a sizeable umbilical hernia. bruising on abd from heparin shots EXTREMITIES: Moves all extremities well. NEUROLOGIC: She is alert, but a little bit confused I believe. I think she is in denial at this point of her symptomatology. She repeatedly says she is going home tomorrow, the doctor said it was okay. She is saying she is having no symptoms now. LABORATORY DATA Her white count went from 9-23,000, H&H of 10 and 32. Neutrophils 88. Chemistry shows creatinine of 1.2 her troponins were normal, LFTs were normal. I ordered a urinalysis which culture is needed. She had some white cells in it and moderate leukocyte esterase positive. IMAGING STUDIES She had an ultrasound of her gallbladder which showed gallstones with gallbladder thickening. She had a CT scan that showed small hiatal hernia with gallstones and thickened wall. She had a myocardial perfusion nuclear medicine scan which showed a good ejection fraction. Chest CT shows a thick walled gallbladder with distension. ASSESSMENT This is an 85-year-old female who appears to have symptomatic cholelithiasis, cholecystitis with an elevated white count, possible urinary tract infection as well. She has an alcohol abuse problem as well. She seems a little bit confused to me. She did not want to talk about surgery. At this time, I will continue antibiotic therapy. I tried to see if her was around and he was not. We will re-evaluate her in the morning. We will need to stop her heparin medication prior to surgical intervention. Some of her confusion may be because of slight septicemia from possibly the gallbladder and/or or possibly the urine. Antibiotic coverage is appropriate. We will continue to follow her and see if she has more understanding tomorrow. MD ZAK León/NAIMA /9:24 PM /8:53 AM MAE
--- NOTE | 2016-09-28 09:40 | EKG ---
Date Performed: 09/28/2016 Time Performed: 01:51:07 PTAGE: 85 years EKG: ATRIAL FIBRILLATION WITH RAPID VENTRICULAR RESPONSE RIGHT BUNDLE BRANCH BLOCK ABNORMAL ECG PREVIOUS TRACING : 09/27/2016 08.25 Compared to previous tracing, atrial fibrillation has repla baldemar Sinus rhythm , heart rate has increased. DOCTOR: Lam Melton Interpretating Date/Time 09/28/2016 09:39:42
[2016-09-28] MEDS: AZITHROMYCIN INJ 500 MG in SODIUM CHLOR 0.9% 250 ML INJ 250 ML IV SCH (10:20)
--- NOTE | 2016-09-28 13:12 | HHI.PR ---
Subjective Subjective Notes DAILY PROGRESS NOTE FOR SURGICAL ATTENDING, DR. JOE HERRMANN Patient at bedside Patient had an episode of atrial fibrillation Objective Vitals/I&O Vital Signs Date Time Temp Pulse Resp B/P Pulse Ox O2 Delivery O2 Flow Rate FiO2 09/28/16 11:42 98.4 86 18 113/52 96 09/26/16 14:44 Nasal Cannula 2 Labs Laboratory Tests Test 09/27/16 09/28/16 09/28/16 09/28/16 18:10 03:02 04:37 07:40 Urine Color YELLOW Urine Turbidity HAZY Urine pH 8.0 Urine Specific [place] 1.047 Urine Protein 30 Urine Glucose (UA) NEG Urine Ketones TRACE Urine Occult Blood TRACE Urine Nitrite NEG Urine Bilirubin NEG Urine Urobilinogen LESS THAN 2.0 Urine Leukocyte Esterase MOD Urine RBC 1 Urine WBC 11 Urine Squamous Epithelial 1 Cells Urine Bacteria OCC Urine Mucus FEW Microscopic Urinalysis Comment CULTURE INDICATED White Blood Count 19.4 Red Blood Count 3.24 Hemoglobin 9.9 Hematocrit 29.9 Mean Corpuscular Volume 92.3 Mean Corpuscular Hemoglobin 30.7 Mean Corpuscular Hemoglobin 33.3 Concent Red Cell Distribution Width 13.5 Platelet Count 155 Mean Platelet Volume 8.8 Neutrophils (%) (Auto) 87.1 Lymphocytes (%) (Auto) 6.4 Monocytes (%) (Auto) 5.9 Eosinophils (%) (Auto) 0.1 Basophils (%) (Auto) 0.5 Neutrophils # (Auto) 16.9 Lymphocytes # (Auto) 1.2 Monocytes # (Auto) 1.1 Eosinophils # (Auto) 0.0 Basophils # (Auto) 0.1 CBC Comment Differential Total Cells 100 Counted Neutrophils % (Manual) 70 Band Neutrophils % 20 Lymphocytes % 6 Monocytes % 4 Neutrophils # (Manual) 17.5 Differential Comment FINAL DIFF MANUAL Platelet Estimate NORMAL Platelet Morphology Comment NORMAL Hematology Comments AD Sodium Level 142 Potassium Level 3.7 Chloride Level 106 Carbon Dioxide Level 26.8 Anion Gap 9 Blood Urea Nitrogen 36 Creatinine 1.42 Estimat Glomerular Filtration 35 Rate Random Glucose 110 Calcium Level 8.2 Magnesium Level 1.6 Total Bilirubin 0.9 Aspartate Amino Transf 25 (AST/SGOT) Alanine Aminotransferase 29 (ALT/SGPT) Alkaline Phosphatase 49 Total Creatine Kinase 141 Troponin I 0.13 B-Type Natriuretic Peptide 238 Total Protein 6.7 Albumin 2.8 Lactic Acid Level 0.9 D-Dimer Quantitative (PE/DVT) 2.48 Date/Time Procedure Status Source Growth 09/27/16 18:10 Urine Culture Received Urine Clean Catch Pending 09/27/16 15:30 Aerobic Blood Culture - Preliminary Resulted Blood Peripheral NO GROWTH IN 1 DAY 09/27/16 15:30 Anaerobic Blood Culture - Preliminary Resulted Blood Peripheral NO GROWTH IN 1 DAY Radiology Allergies Coded Allergies Type Severity Reaction Last Updated Verified No Known Allergies 08/19/13 No Recent Impressions Chest X-Ray 09/28/16 0000 Signed Impressions: Service Date/Time: Wednesday, September 28, 2016 03:45 - CONCLUSION: Bibasilar infiltrates. Shahzad Emery MD Myocardial Perfusion Scan Nuc Med 09/27/16 0600 Signed Impressions: Service Date/Time: September 10:16 - CONCLUSION: 1. No fixed or reversible perfusion defect is identified. 2. Normal left ventricle wall motion and ejection fraction. RISK CATEGORY: Low (<1%% Annual Mortality Rate) Esdras Hunt MD Abdomen/Pelvis CT 09/26/16 09 Signed Impressions: Service Date/Time: Monday, September 26, 2016 10:02 - CONCLUSION: 1. Small hiatal hernia. 2. Hepatic steatosis. 3. Cholelithiasis. There is mild gallbladder wall thickening and gallbladder distention noted. The possibility of cholecystitis should be entertained. 4. Diverticulosis. Butch Watson MD Chest X-Ray 09/26/16 0908 Signed Impressions: Service Date/Time: Monday, September 26, 2016 09:27 - CONCLUSION: Small left effusion versus scarring suspected. Right hilar mass should be excluded with CT chest with contrast. Butch Watson MD Gall Bladder Ultrasound 09/26/16 0000 Signed Impressions: Service Date/Time: Monday, September 26, 2016 13:37 - CONCLUSION: 1. Cholelithiasis with gallbladder wall thickening. However, sonographic Mandujano's sign is negative. There are not definitive findings to diagnose acute cholecystitis by ultrasound. HIDA scan can help evaluate for cystic duct obstruction, if needed. 2. Hepatic steatosis. Esdras Hunt MD Chest CT 09/26/16 0000 Signed Impressions: Service Date/Time: Monday, September 26, 2016 17:14 - CONCLUSION: No acute cardiopulmonary process. Subcentimeter nodules along the right interlobar fissure consistent with small lymph nodes. No evidence of suspicious pulmonary mass Distended gallbladder with wall thickening. Abdelrahman Hernandez MD /12/174/[id number]/174//174/14// 06:00 18:00 06:00 18:00 06:00 18:00 Intake Total 0 ml 282 ml Balance 0 ml 282 ml Intake Oral 0 ml 0 ml IV Total 282 ml # Voids 2 2 Laboratory Tests Test 09/26/16 09/26/16 09/26/16 09/27/16 09:10 15:00 20:59 06:15 White Blood Count 9.8 TH/MM3 23.8 TH/MM3 Red Blood Count 3.69 MIL/MM3 3.49 MIL/MM3 Hemoglobin 11.2 GM/DL 10.6 GM/DL Hematocrit 33.9 % 32.0 % Mean Corpuscular Volume 91.9 FL 91.7 FL Mean Corpuscular Hemoglobin 30.5 PG 30.3 PG Mean Corpuscular Hemoglobin 33.2 % 33.0 % Concent Red Cell Distribution Width 13.4 % 13.2 % Platelet Count 194 TH/MM3 195 TH/MM3 Mean Platelet Volume 8.5 FL 8.7 FL Neutrophils (%) (Auto) 77.0 % 88.5 % Lymphocytes (%) (Auto) 15.6 % 4.8 % Monocytes (%) (Auto) 6.3 % 6.6 % Eosinophils (%) (Auto) 0.6 % 0.0 % Basophils (%) (Auto) 0.5 % 0.1 % Neutrophils # (Auto) 7.5 TH/MM3 21.1 TH/MM3 Lymphocytes # (Auto) 1.5 TH/MM3 1.2 TH/MM3 Monocytes # (Auto) 0.6 TH/MM3 1.6 TH/MM3 Eosinophils # (Auto) 0.1 TH/MM3 0.0 TH/MM3 Basophils # (Auto) 0.1 TH/MM3 0.0 TH/MM3 CBC Comment DIFF FINAL DIFF FINAL Differential Comment Sodium Level 140 MEQ/L 142 MEQ/L Potassium Level 3.7 MEQ/L 4.1 MEQ/L Chloride Level 104 MEQ/L 107 MEQ/L Carbon Dioxide Level 27.6 MEQ/L 26.8 MEQ/L Anion Gap 8 MEQ/L 8 MEQ/L Blood Urea Nitrogen 27 MG/DL 27 MG/DL Creatinine 1.06 MG/DL 1.28 MG/DL Estimat Glomerular Filtration 50 ML/MIN 40 ML/MIN Rate Random Glucose 146 MG/DL 120 MG/DL Calcium Level 9.6 MG/DL 8.8 MG/DL Total Bilirubin 0.4 MG/DL 0.9 MG/DL Direct Bilirubin 0.1 MG/DL Indirect Bilirubin 0.3 MG/DL Aspartate Amino Transf 19 U/L 17 U/L (AST/SGOT) Alanine Aminotransferase 22 U/L 22 U/L (ALT/SGPT) Alkaline Phosphatase 62 U/L 57 U/L Total Creatine Kinase 56 U/L Troponin I 0.06 NG/ML 0.19 NG/ML 0.28 NG/ML Total Protein 8.0 GM/DL 7.2 GM/DL Albumin 3.6 GM/DL 3.2 GM/DL Lipase 168 U/L Hemoglobin A1c 5.7 % Test 09/27/16 09/27/16 09/28/16 09/28/16 09:15 18:10 03:02 04:37 Troponin I 0.19 NG/ML 0.13 NG/ML Urine Color YELLOW Urine Turbidity HAZY Urine pH 8.0 Urine Specific [place] 1.047 Urine Protein 30 mg/dL Urine Glucose (UA) NEG mg/dL Urine Ketones TRACE mg/dL Urine Occult Blood TRACE Urine Nitrite NEG Urine Bilirubin NEG Urine Urobilinogen LESS THAN 2.0 MG/DL Urine Leukocyte Esterase MOD Urine RBC 1 /hpf Urine WBC 11 /hpf Urine Squamous Epithelial 1 /hpf Cells Urine Bacteria OCC /hpf Urine Mucus FEW /lpf Microscopic Urinalysis Comment CULTURE INDICATED White Blood Count 19.4 TH/MM3 Red Blood Count 3.24 MIL/MM3 Hemoglobin 9.9 GM/DL Hematocrit 29.9 % Mean Corpuscular Volume 92.3 FL Mean Corpuscular Hemoglobin 30.7 PG Mean Corpuscular Hemoglobin 33.3 % Concent Red Cell Distribution Width 13.5 % Platelet Count 155 TH/MM3 Mean Platelet Volume 8.8 FL Neutrophils (%) (Auto) 87.1 % Lymphocytes (%) (Auto) 6.4 % Monocytes (%) (Auto) 5.9 % Eosinophils (%) (Auto) 0.1 % Basophils (%) (Auto) 0.5 % Neutrophils # (Auto) 16.9 TH/MM3 Lymphocytes # (Auto) 1.2 TH/MM3 Monocytes # (Auto) 1.1 TH/MM3 Eosinophils # (Auto) 0.0 TH/MM3 Basophils # (Auto) 0.1 TH/MM3 CBC Comment Differential Total Cells 100 Counted Neutrophils % (Manual) 70 % Band Neutrophils % 20 % Lymphocytes % 6 % Monocytes % 4 % Neutrophils # (Manual) 17.5 TH/MM3 Differential Comment FINAL DIFF MANUAL Platelet Estimate NORMAL Platelet Morphology Comment NORMAL Hematology Comments AD Sodium Level 142 MEQ/L Potassium Level 3.7 MEQ/L Chloride Level 106 MEQ/L Carbon Dioxide Level 26.8 MEQ/L Anion Gap 9 MEQ/L Blood Urea Nitrogen 36 MG/DL Creatinine 1.42 MG/DL Estimat Glomerular Filtration 35 ML/MIN Rate Random Glucose 110 MG/DL Calcium Level 8.2 MG/DL Magnesium Level 1.6 MG/DL Total Bilirubin 0.9 MG/DL Aspartate Amino Transf 25 U/L (AST/SGOT) Alanine Aminotransferase 29 U/L (ALT/SGPT) Alkaline Phosphatase 49 U/L Total Creatine Kinase 141 U/L B-Type Natriuretic Peptide 238 PG/ML Total Protein 6.7 GM/DL Albumin 2.8 GM/DL Lactic Acid Level 0.9 mmol/L Test 09/28/16 07:40 D-Dimer Quantitative (PE/DVT) 2.48 MG/L FEU Procedure Category Date Status Time Electrocardiogram CAV 09/26/16 Resulted 09:08 Complete Blood Count LAB 09/26/16 Complete With Diff 09:08 Basic Metabolic Panel LAB 09/26/16 Complete (Bmp) 09:08 Ckmb (Isoenzyme) LAB 09/26/16 Complete Profile 09:08 Troponin I LAB 09/26/16 Complete 09:08 Chest, Single Ap RADDIAG 09/26/16 Resulted 09:08 Iv Access TX 09/26/16 Transmitted Insert/Monitor 09:08 Ecg Monitoring TX 09/26/16 Transmitted 09:08 Oxygen Administration TX 09/26/16 Transmitted 09:08 Oximetry TX 09/26/16 Transmitted 09:08 Ondansetron Inj MED 09/26/16 Complete (Zofran Inj) 09:10 Hepatic Functional LAB 09/26/16 Complete Panel 09:25 Lipase LAB 09/26/16 Complete 09:25 Ct Abd/Pel W Iv RADCT 09/26/16 Resulted Contrast(Rout) 09:25 Hydromorphone Pf Inj MED 09/26/16 Complete (Dilaudid Pf Inj) 09:30 Ondansetron Inj MED 09/26/16 Complete (Zofran Inj) 10:45 Admit Order (Ed Use ADMITTING 09/26/16 Transmitted Only) 11:29 Us Abdomen Gallbladder RADUS 09/26/16 Resulted Cholecalciferol MED 09/27/16 Complete (Vitamin D3) 09:00 Pantoprazole MED 09/27/16 Complete (Protonix) 09:00 Pravastatin MED 09/27/16 In Process (Pravachol) 09:00 Place In Observation ADMITTING 09/26/16 Transmitted Vital Signs (Adult) GURPREET 09/26/16 Complete 13:19 Activity Oob With GURPREET 09/26/16 In Process Assistance 13:19 Pasting Inspector / GURPREET 09/26/16 In Process Telemetry 13:19 Sodium Chlor 0.9% MED 09/26/16 Complete 1000 Ml Inj (Ns 1000 M 14:00 Sodium Chloride 0.9% MED 09/26/16 In Process Flush (Ns Flush) 13:30 Sodium Chloride 0.9% MED 09/26/16 In Process Flush (Ns Flush) 21:00 Acetaminophen MED 09/26/16 In Process (Tylenol) 13:30 Ondansetron Inj MED 09/26/16 In Process (Zofran Inj) 13:30 Docusate Sodium MED 09/26/16 In Process (Colace) 14:00 Sennosides (Senokot) MED 09/26/16 In Process 13:30 Comprehensive LAB 09/27/16 Complete Metabolic Panel 06:00 Complete Blood Count LAB 09/27/16 Complete With Diff 06:00 Troponin I LAB 09/26/16 Complete 15:00 Troponin I LAB 09/26/16 Complete 21:00 Electrocardiogram CAV 09/27/16 Resulted 06:00 Resp Oxygen Brandt C RSP 09/26/16 Logged Titrat 1-4 L Heparin Inj (Heparin MED 09/26/16 In Process Inj) 14:00 Acetaminophen MED 09/26/16 In Process (Tylenol) 13:30 Morphine Inj MED 09/26/16 In Process (Morphine Inj) 13:30 Oxycodone (Roxicodone) MED 09/26/16 In Process 13:30 Naloxone Inj (Narcan MED 09/26/16 In Process Inj) 13:30 Oxycodone (Roxicodone) MED 09/26/16 In Process 14:00 Amlodipine (Norvasc) MED 09/26/16 In Process 16:00 Alcohol Withdrawal GURPREET 09/[facility]/16 [facility]28 Flumazenil Inj MED 09/26/16 In Process (Romazicon Inj) 15:30 Lorazepam (Ativan) MED 09/26/16 In Process 15:30 Lorazepam (Ativan) MED 09/26/16 In Process 15:30 Lorazepam Inj (Ativan MED 09/26/16 In Process Inj) 15:30 Lorazepam Inj (Ativan MED 09/26/16 In Process Inj) 15:30 Clonidine (Catapres) MED 09/26/16 In Process 15:30 Enalaprilat Inj MED 09/26/16 In Process (Vasotec Inj) 15:30 Consult Pt Eval & PT 09/26/16 Logged Treat 15:31 Ot Request For Service OT 09/26/16 Logged 15:31 Case Management CONS 09/26/16 Transmitted Consult Nystatin Cream MED 09/26/16 In Process (Mycostatin Cream) 16:00 Ct Thorax/ Chest W Iv RADCT 09/26/16 Resulted Contrast Code Status CODE 09/26/16 Transmitted 15:52 Electrocardiogram CAV 09/26/16 Resulted Diet Heart Healthy DIET 09/26/16 Complete Dinner Hemoglobin (Hgb) A1c LAB 09/26/16 Complete 16:00 Npo After Midnight W/ DIET 09/27/16 Transmitted Po Meds Breakfast Myocardial Perf Pharm RADNM 09/27/16 Resulted Sp W/Ef 06:00 Admit To Inpatient ADMITTING 09/26/16 Transmitted Inpatient ADMITTING 09/26/16 Transmitted Certification Patient Transfer ADMITTING 09/26/16 Transmitted Iohexol 350 Inj MED 09/26/16 Complete (Omnipaque 350 Inj) 17:20 Troponin I LAB 09/27/16 Complete 08:40 Dext 5%-Nacl 0.45% MED 09/27/16 Complete 1000 Ml Inj (D5w-1/2 08:45 (Hub Use Only)Inp Phy CONS 09/27/16 Transmitted Cons/Ref Stress Pharm/Non-Art Appraiser RADNM 09/27/16 Complete 11:21 Regadenoson Inj MED 09/27/16 Complete (Lexiscan Inj) 11:23 Aminophylline Inj MED 09/27/16 Complete (Aminophylline Inj) 11:37 Piperacil-Tazo 3.375 MED 09/27/16 In Process Gm Premix (Zosyn 3. 14:00 Blood Culture SANDER 09/27/16 In Process 13:30 Consult General CONS 09/27/16 Transmitted Surgery Pantoprazole MED 09/28/16 Complete (Protonix) 09:00 Pantoprazole Inj MED 09/27/16 In Process (Protonix Inj) 15:00 Sodium Chlor 0.9% MED 09/27/16 Complete 1000 Ml Inj (Ns 1000 M 15:00 Consult Za Nfs CONS 09/27/16 Transmitted (Hub Use Only)Inp Phy CONS 09/27/16 Transmitted Cons/Ref Urinalysis - C+S If LAB 09/27/16 Complete Indicated 16:30 Specimen To Be GURPREET 09/27/16 In Process Collected 16:30 Urine Culture SANDER 09/27/16 In Process 18:10 Lorazepam Inj (Ativan MED 09/28/16 Complete Inj) 01:15 Lorazepam Inj (Ativan MED 09/28/16 Complete Inj) 01:45 Electrocardiogram CAV 09/28/16 Resulted Diltiazem (Cardizem) MED 09/28/16 Complete 02:00 Diltiazem Inj MED 09/28/16 Complete (Cardizem Inj) 03:00 Complete Blood Count LAB 09/28/16 Complete With Diff 02:47 Creatine Kinase (Cpk) LAB 09/28/16 Complete 02:47 Troponin I LAB 09/28/16 Complete 02:47 B-Type Natriuretic LAB 09/28/16 Complete Peptide 02:47 Magnesium (Mg) LAB 09/28/16 Complete 02:47 Patient Transfer ADMITTING 09/28/16 Transmitted Chest, Single Ap RADDIAG 09/28/16 Resulted Lactic Acid LAB 09/28/16 Complete 03:24 Comprehensive LAB 09/28/16 Complete Metabolic Panel 03:02 D-Dimer LAB 09/28/16 Complete 04:07 Vital Signs (Adult) GURPREET 09/28/16 In Process 04:08 Pasting Inspector / GURPREET 09/28/16 In Process Telemetry 04:08 Cardiac Rhythm GURPREET 09/28/16 In Process 04:[address]: Other GURPREET 09/28/16 In Process 04:08 Diltiazem Inj MED 09/28/16 In Process (Cardizem Inj) 04:15 Azithromycin Inj MED 09/28/16 In Process (Zithromax Inj) 09:00 (Hub Use Only)Inp Phy CONS 09/28/16 Transmitted Cons/Ref Cholecalciferol MED 09/28/16 In Process (Vitamin D3) 11:00 Dext 5%-Nacl 0.9% MED 09/28/16 In Process 1000 Ml Inj (D5w-Ns 10 13:00 Diltiazem (Cardizem) MED 09/28/16 In Process 12:45 Vital Signs Date Time Temp Pulse Resp B/P Pulse Ox O2 Delivery O2 Flow Rate FiO2 09/28/16 11:42 98.4 86 18 113/52 96 09/28/16 10:00 22 09/28/16 08:25 98.7 84 22 136/68 97 09/28/16 03:00 98.2 144 25 115/75 91 09/28/16 03:00 144 09/28/16 02:55 140 88/71 94 09/27/16 23:57 98.4 76 20 113/57 96 09/27/16 19:18 98.4 86 20 90/45 95 09/27/16 15:10 99.0 87 20 122/94 91 09/27/16 14:17 09/27/16 13:00 97.7 78 16 133/63 94 09/27/16 08:17 96.8 78 16 133/63 87 09/27/16 08:00 91 09/27/16 03:24 98.7 88 18 137/56 95 09/26/16 23:53 97.4 95 18 114/59 96 09/26/16 23:00 16 09/26/16 20:38 99.5 70 20 131/55 96 09/26/16 15:27 98.3 67 16 176/72 96 09/26/16 14:44 65 16 168/75 96 Nasal Cannula 2 09/26/16 12:24 97.9 64 20 177/117 92 Room Air 09/26/16 10:15 14 09/26/16 09:23 98 Nasal Cannula 2 09/26/16 09:23 98 Nasal Cannula 2.00 09/26/16 09:23 16 89 Room Air 09/26/16 09:23 51 98 Nasal Cannula 2 09/26/16 09:16 97.7 49 16 185/96 89 Last Impressions Chest X-Ray 09/28/16 0000 Signed Impressions: Service Date/Time: Wednesday, September 28, 2016 03:45 - CONCLUSION: Bibasilar infiltrates. Shahzad Emery MD Myocardial Perfusion Scan Nuc Med 09/27/16 0600 Signed Impressions: Service Date/Time: September 10:16 - CONCLUSION: 1. No fixed or reversible perfusion defect is identified. 2. Normal left ventricle wall motion and ejection fraction. RISK CATEGORY: Low (<1%% Annual Mortality Rate) Esdras Hunt MD Abdomen/Pelvis CT 09/26/16 0925 Signed Impressions: Service Date/Time: Monday, September 26, 2016 10:02 - CONCLUSION: 1. Small hiatal hernia. 2. Hepatic steatosis. 3. Cholelithiasis. There is mild gallbladder wall thickening and gallbladder distention noted. The possibility of cholecystitis should be entertained. 4. Diverticulosis. Butch Watson MD Gall Bladder Ultrasound 09/26/16 0000 Signed Impressions: Service Date/Time: Monday, September 26, 2016 13:37 - CONCLUSION: 1. Cholelithiasis with gallbladder wall thickening. However, sonographic Mandujano's sign is negative. There are not definitive findings to diagnose acute cholecystitis by ultrasound. HIDA scan can help evaluate for cystic duct obstruction, if needed. 2. Hepatic steatosis. Esdras Hunt MD Chest CT 09/26/16 0000 Signed Impressions: Service Date/Time: Monday, September 26, 2016 17:14 - CONCLUSION: No acute cardiopulmonary process. Subcentimeter nodules along the right interlobar fissure consistent with small lymph nodes. No evidence of suspicious pulmonary mass Distended gallbladder with wall thickening. Abdelrahman Hernandez MD Cardiovascular: Regular Lungs: Clear Abdomen: Other (right upper quadrant pain) A/P Problem List: (1) Cholecystitis (2) A-fib (3) Elevated troponin (4) Umbilical hernia (5) EtOH dependence (6) Gallstones (7) Abnormal CT of the abdomen (8) RUQ abdominal pain (9) UTI (urinary tract infection) (10) Pneumonia (11) Confusion state (12) Abnormality of lung on CXR (13) Abnormal finding on EKG Assessment and Plan 85-year-old female with cholelithiasis cholecystitis Had an episode of atrial fibrillation last night Has a UTI and pneumonia We'll plan surgical intervention once stabilized possibly middle of next week Discussed this with the at the bedside Attending Statement NOTE FOR SURGICAL ATTENDING, DR. JOE HERRMANN I attest that I had a [id number] encounter with the patient on the same day, and personally performed and documented my assessment and findings in the medical record. The following services were provided during this hospital visit: Chart data review, vital sign assessments/reviewing monitor data Review of consultations notes if present. Medication orders/review and/or management Ordering and/or reviewing lab tests Ordering and/or interpreting/reviewing x-rays and/or diagnostic studies Care of the patient and discussion of the patient with the care team Documentation time To help prompt me to consider important information that might be impacting today's encounter and assessment, information from prior notes written by myself or my colleagues may have been "brought forward/copy and pasted" into today's note. Joe Herrmann MD Sep 28, 2016 13:12
[2016-09-28] MEDS: DEXT 5%-NACL 0.9% 1000 ML INJ 1,000 ML IV SCH ×2 (13:15→21:11)
[2016-09-28] MEDS: CHOLECALCIFEROL (VIT D3) 1000 UNIT TAB PO SCH (13:16)
[2016-09-28] MEDS: DILTIAZEM HCL 60 MG TAB PO SCH ×3 (13:16→23:48)
--- NOTE | 2016-09-28 13:47 | HHI.PR ---
Subjective Remarks The patient was lethargic. She was able to wake up and somewhat respond to questions with prompting. Discussed with nursing. Objective Vitals Vital Signs Date Time Temp Pulse Resp B/P Pulse Ox O2 Delivery O2 Flow Rate FiO2 09/28/16 11:42 98.4 86 18 113/52 96 09/28/16 10:00 22 09/28/16 08:25 98.7 84 22 136/68 97 09/28/16 03:00 98.2 144 25 115/75 91 09/28/16 03:00 144 09/28/16 02:55 140 88/71 94 09/27/16 23:57 98.4 76 20 113/57 96 09/27/16 19:18 98.4 86 20 90/45 95 09/27/16 15:10 99.0 87 20 122/94 91 09/27/16 14:17 I/O 09/27/16 09/27/16 09/27/16 09/28/16 09/28/16 09/28/16 07:00 15:00 23:00 07:00 15:00 23:00 Intake Total 282 ml Balance 282 ml Intake Oral 0 ml IV Total 282 ml # Voids 1 Result Diagram: 09/28/16 0302 09/28/16 0302 Imaging Last Impressions Chest X-Ray 09/28/16 0000 Signed Impressions: Service Date/Time: Wednesday, September 28, 2016 03:45 - CONCLUSION: Bibasilar infiltrates. Shahzad Emery MD Myocardial Perfusion Scan Nuc Med 09/27/16 0600 Signed Impressions: Service Date/Time: September 10:16 - CONCLUSION: 1. No fixed or reversible perfusion defect is identified. 2. Normal left ventricle wall motion and ejection fraction. RISK CATEGORY: Low (<1%% Annual Mortality Rate) Esdras Hunt MD Abdomen/Pelvis CT 09/26/16 0925 Signed Impressions: Service Date/Time: Monday, September 26, 2016 10:02 - CONCLUSION: 1. Small hiatal hernia. 2. Hepatic steatosis. 3. Cholelithiasis. There is mild gallbladder wall thickening and gallbladder distention noted. The possibility of cholecystitis should be entertained. 4. Diverticulosis. Butch Watson MD Gall Bladder Ultrasound 09/26/16 0000 Signed Impressions: Service Date/Time: Monday, September 26, 2016 13:37 - CONCLUSION: 1. Cholelithiasis with gallbladder wall thickening. However, sonographic Mandujano's sign is negative. There are not definitive findings to diagnose acute cholecystitis by ultrasound. HIDA scan can help evaluate for cystic duct obstruction, if needed. 2. Hepatic steatosis. Esdras Hunt MD Chest CT 09/26/16 0000 Signed Impressions: Service Date/Time: Monday, September 26, 2016 17:14 - CONCLUSION: No acute cardiopulmonary process. Subcentimeter nodules along the right interlobar fissure consistent with small lymph nodes. No evidence of suspicious pulmonary mass Distended gallbladder with wall thickening. bAdelrahman Hernandez MD Objective Remarks GENERAL: This is a well-nourished, well-developed patient, in no apparent distress. SKIN: No rashes, ecchymoses or lesions. Cool and dry. HEAD: Atraumatic. Normocephalic. No temporal or scalp tenderness. EYES: Pupils equal round and reactive. Extraocular motions intact. No scleral icterus. No injection or drainage. ENT: Nose without bleeding, purulent drainage or septal hematoma. Throat without erythema, tonsillar hypertrophy or exudate. Uvula midline. Airway patent. NECK: Trachea midline. No JVD or lymphadenopathy. Supple, nontender, no meningeal signs. CARDIOVASCULAR: Regular rate and rhythm without murmurs, gallops, or rubs. RESPIRATORY: Clear to auscultation. Breath sounds equal bilaterally. No wheezes , rales, or rhonchi. GASTROINTESTINAL: Abdomen soft, generalized tenderness to palpation, worse in the right upper quadrant, nondistended. No hepato-splenomegaly, or palpable masses. No guarding. MUSCULOSKELETAL: Extremities without clubbing, cyanosis, or edema. No joint tenderness, effusion, or edema noted. NEUROLOGICAL: Mild tremors of the upper extremities. Lethargic. Cranial nerves II through XII intact. Motor and sensory grossly within normal limits. Five out of 5 muscle strength in all muscle groups. Normal speech. PSYCH: Withdrawn. Medications and IVs Current Medications Medications (Trade) Dose Ordered Sig/Cristian Route Start Time Stop Time Status Last Admin (Pravachol) 20 mg DAILY PO 09/27/16 09:00 09/28/16 08:16 (NS Flush) 2 ml UNSCH PRN IV FLUSH 09/26/16 13:30 (NS Flush) 2 ml BID IV FLUSH 09/26/16 21:00 09/28/16 08:20 (Tylenol) 650 mg Q4H PRN PO 09/26/16 13:30 (Zofran Inj) 4 mg Q6H PRN IVP 09/26/16 13:30 09/27/16 14:08 (Colace) 100 mg Q12HR PO 09/26/16 14:00 09/28/16 08:16 (Senokot) 17.2 mg Q12H PRN PO 09/26/16 13:30 (Heparin Inj) 5,000 units Q8HR SQ 09/26/16 14:00 09/28/16 13:17 (Tylenol) 650 mg Q6H PRN PO 09/26/16 13:30 09/26/16 14:40 (Roxicodone) 10 mg Q4H PRN PO 09/26/16 14:00 09/27/16 14:11 (Morphine Inj) 4 mg Q3H PRN IV 09/26/16 13:30 (Roxicodone) 5 mg Q4H PRN PO 09/26/16 13:30 09/28/16 08:16 (Narcan Inj) 0.4 mg UNSCH PRN IV 09/26/16 13:30 (Norvasc) 5 mg DAILY PO 09/26/16 16:00 Hold 09/27/16 08:22 (Romazicon Inj) 0.2 mg Q1M PRN IV PUSH 09/26/16 15:30 (Ativan) 1 mg Q4H PRN PO 09/26/16 15:30 09/28/16 08:16 (Ativan) 2 mg Q2H PRN PO 09/26/16 15:30 (Ativan Inj) 2 mg Q1H PRN IV PUSH 09/26/16 15:30 (Ativan Inj) 2 mg Q15M PRN IV PUSH 09/26/16 15:30 (Catapres) 0.1 mg Q6H PRN PO 09/26/16 15:30 (Vasotec Inj) 1.25 mg Q6H PRN IV PUSH 09/26/16 15:30 Nystatin 1 applic 1 applic Q12HR TOPICAL 09/26/16 16:00 09/28/16 08:20 (Zosyn 3.375 Gm Premix) 50 ml @ 200 mls/hr Q6H IV 09/27/16 14:00 09/28/16 13:20 Pantoprazole Sodium 40 mg 40 mg Q24H IV PUSH 09/27/16 15:00 Diltiazem HCl 125 mg/Sodium Chloride 125 ml @ 0 mls/hr TITRATE IV 09/28/16 04:15 09/28/16 04:26 (Zithromax Inj/ NS 250 ml Inj) 250 ml @ 250 mls/hr Q24H IV 09/28/16 09:00 09/28/16 10:20 Cholecalciferol 1000 units 1,000 units DAILY PO 09/28/16 11:00 09/28/16 13:16 (D5W-NS 1000 ml Inj) 1,000 ml @ 100 mls/hr Q10H IV 09/28/16 13:00 09/29/16 08:59 09/28/16 13:15 (Cardizem) 60 mg Q6HR PO 09/28/16 12:45 09/28/16 13:16 A/P Assessment and Plan Acute cholecystitis/ Cholangitis CT of the abdomen revealed questionable cholecystitis. Right upper quadrant ultrasound also with cholelithiasis and gallbladder wall thickening. LFTs unremarkable. 09/27 pt with worsening RUQ abdominal pain and nausea as well as marked leukocytosis. Appreciate surgical consult. - Serial abdominal exams. - Pain control and antiemetics as needed. - PPI. - start Zosyn as there is concern for cholangitis. - blood cultures x 2. - general surgery considering surgery next week. A fib New onset. - wean off diltiazem gtt. - start Cardizem 60 mg Q6H. - check echo, TSH. - start ASA. Hold off on full anticoagulation considering alcohol abuse and fall risk. Chest pain/ Right hilar mass The patient presented with right-sided chest pain and chest x-ray cannot exclude a right hilar mass. EKG with sinus bradycardia and right bundle branch block. Trop peaked at 0.28. CT chest with contrast: No acute cardiopulmonary process; Subcentimeter nodules along the right interlobar fissure consistent with small lymph nodes; No evidence of suspicious pulmonary mass; Distended gallbladder with wall thickening. Stress test negative. - chest pain likely s/t above. Pneumonia Repeat CXR with bibasilar infiltrates. - add azithromycin. Continue Zosyn. Daily alcohol use The patient endorses 2-3 large glasses of wine daily. She is somewhat tremulous. 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 - [facility] protocol. - Cessation instruction. - PT/ OT evals. HTN Blood pressure improved. - Started amlodipine. Will hold for now as normotensive. Resume as needed. - Clonidine and Vasotec as needed. Renal insufficiency Likely secondary to decreased by mouth intake. - IV fluids and monitor. Hyperglycemia Unsure of baseline. Hemoglobin A1c 5.7%. - likely a stress reaction. PPx: Heparin. Discharge Planning Awaiting clinical improvement. Leonard Gibbs DO Sep 28, 2016 13:47
--- NOTE | 2016-09-28 15:12 | EC ---
Study Study Date:09/28/2016 STUDY CONCLUSIONS SUMMARY - Procedure narrative: Transthoracic echocardiography. Image quality was poor. Scanning was performed from the parasternal, apical, and subcostal acoustic windows. - Left ventricle: The cavity size was normal. Wall thickness was normal. Systolic function was vigorous. The estimated ejection fraction was in the range of 65% to 70%. Regional wall motion abnormalities cannot be excluded. - Aortic valve: Trileaflet; mildly thickened leaflets. - Mitral valve: Mildly calcified annulus. - Tricuspid valve: Trace to mild regurgitation. - Pulmonary arteries: PA peak pressure: 34mm Hg (S). If LV function is below 40, please consider prescribing an ACEI or ARB or document rationale for non-use. PROCEDURE DATA STUDY STATUS: Elective. Procedure: Transthoracic echocardiography. Image quality was poor. Scanning was performed from the parasternal, apical, and subcostal acoustic windows. Study completion: The patient tolerated the procedure well. Transthoracic echocardiography. M-mode, complete 2D, complete spectral Doppler, and color Doppler. Height: Height: 66in. Weight: Weight: 174.6lb. Body mass index: BMI: 28.2kg/m^2. Body surface area: BSA: 1.89m^2. Patient status: Inpatient. CARDIAC ANATOMY LEFT VENTRICLE: The cavity size was normal. Wall thickness was normal. Systolic function was vigorous. The estimated ejection fraction was in the range of 65% to 70%. Regional wall motion abnormalities cannot be excluded. AORTIC VALVE: Trileaflet; mildly thickened leaflets. Doppler: Transvalvular velocity was within the normal range. There was no stenosis. No regurgitation. Valve area: 2.69cm^2 (Vmax). Indexed valve area: 1.42cm^2/m^2 (Vmax). AORTA: Aortic root: The aortic root was normal in size. MITRAL VALVE: Mildly calcified annulus. Doppler: Transvalvular velocity was within the normal range. There was no evidence for stenosis. No regurgitation. Peak gradient: 2mm Hg (D). LEFT ATRIUM: The atrium was normal in size. RIGHT VENTRICLE: The cavity size was normal. Wall thickness was normal. PULMONIC VALVE: Doppler: Transvalvular velocity was within the normal range. There was no evidence for stenosis. No regurgitation. TRICUSPID VALVE: Structurally normal valve. Doppler: Transvalvular velocity was within the normal range. Trace to mild regurgitation. PULMONARY ARTERY: The main pulmonary artery was normal-sized. Systolic pressure was within the normal range. RIGHT ATRIUM: The atrium was normal in size. PERICARDIUM: There was no pericardial effusion. SYSTEMIC VEINS: Inferior vena cava: The vessel was normal in size. Patient weight: 174.6lb _Ejection fraction:_ 65-75% _Fractional shortening:_ 32% up to 5Kg 5-11.5Kg 11.6-22.9Kg 23-45Kg 45-57Kg Aortic Root 7-13 <17 13-22 17-27 17-27 LA diam 6-13 <23 24-38 33-47 37-40 RVID 10-17 7-15 7-15 7-18 8-17 LVIDd 12-22 <32 24-38 33-47 37-40 LVPW 2-4 3-6 5-7 6-8 7-8 IVS 2-4 3-6 5-7 6-8 7-8 BASIC MEASUREMENTS ADULT NORMAL Left ventricle LV internal dimension, ED, chordal *34.4 mm 43-52 level, PLAX LV internal dimension, ES, chordal 26.8 mm 23-38 level, PLAX Fractional shortening, chordal level, *22 % >29 PLAX LV posterior wall thickness, ED 9.59 mm IVS/LVPW ratio, ED 1.05 <1.3 Ventricular septum Septal thickness, ED 10.1 mm Aortic valve Leaflet separation 20 mm 15-26 BASIC MEASUREMENTS ADULT NORMAL Aortic valve Leaflet separation 20 mm 15-26 Aorta Root diameter, ED 33 mm 20-37 Left atrium Anterior-posterior dimension, ES 31 mm 19-40 Anterior-posterior dimension index, ES 1.64 cm/m^2 <2.2 LA/aortic root ratio 0.94 DOPPLER MEASUREMENTS ADULT NORMAL Main pulmonary artery Pressure, S *34 mm Hg =30 Aortic valve Peak velocity, S 99.1 cm/s Valve area, Vmax 2.69 cm^2 Valve area index, Vmax 1.42 cm^2/m^2 Mitral valve Peak E-wave velocity 77 cm/s Peak A-wave velocity 85.4 cm/s Deceleration time 215 ms 150-230 Peak gradient, D 2 mm Hg Peak E/A ratio 0.9 Tricuspid valve Regurgitant peak velocity 201 cm/s Peak RV-RA gradient, S 16 mm Hg Maximal regurgitant velocity 201 cm/s Systemic veins Estimated CVP 10 mm Hg Right ventricle RV pressure, S *37 mm Hg <30 Pulmonic valve Peak velocity, S 80.1 cm/s LEGEND: Mean values are shown as u=mean value. Asterisk (*) boudreaux values outside specified normal range. Prepared and signed by Lam Melton [id number]
[2016-09-28] MEDS: PANTOPRAZOLE SODIUM 40 MG VIAL IV PUSH SCH (15:58)
[2016-09-28] MEDS: ASPIRIN EC 81 MG TABEC PO SCH (15:59)
[2016-09-29] VITALS (25 sets, daily range): BP systolic 105–138; BP diastolic 52–68; PULSE 62–92; RESP 17–24; TEMP 97.4–98.7; O2SAT 92–96
[2016-09-29] MEDS: PIPERACIL-TAZO 3.375 GM PREMIX 50 ML IV SCH ×4 (02:11→20:51)
[2016-09-29] MEDS: HEPARIN SODIUM - SQ 10,000 UNITS/ML VIAL SQ SCH ×3 (04:21→20:51)
[2016-09-29] MEDS: DILTIAZEM HCL 60 MG TAB PO SCH ×3 (04:21→17:53)
[2016-09-29 06:53] LABS: HEMATOCRIT 31.1 % (35.0-46.0); MEAN CELL VOLUME 93.2 FL (80.0-100.0); MEAN CORPUSCULAR HEMOGLOBIN 29.4 PG (27.0-34.0); MEAN CORPUSCULAR HGB CONC 31.5 % (32.0-36.0); PLATELET COUNT 168 TH/MM3 (150-450); RED BLOOD COUNT 3.34 MIL/MM3 (4.00-5.30); RED CELL DISTRIBUTION WIDTH 13.3 % (11.6-17.2); REVIEW FLAG FINAL; WHITE BLOOD COUNT 17.7 TH/MM3 (4.0-11.0)
[2016-09-29 07:20] LABS: BICARBONATE 25.6 MEQ/L (21.0-32.0); MAGNESIUM 1.9 MG/DL (1.5-2.5); POTASSIUM 3.8 MEQ/L (3.5-5.1)
[2016-09-29] MEDS: DOCUSATE SODIUM 100 MG CAP PO SCH ×2 (08:16→20:50)
[2016-09-29] MEDS: CHOLECALCIFEROL (VIT D3) 1000 UNIT TAB PO SCH (08:18)
[2016-09-29] MEDS: PRAVASTATIN SOD 20 MG TAB PO SCH (08:18)
[2016-09-29] MEDS: SODIUM CHLORIDE 0.9% FLUSH 10 ML FLUSH IV FLUSH SCH ×2 (08:18→20:51)
[2016-09-29] MEDS: ASPIRIN EC 81 MG TABEC PO SCH (08:18)
[2016-09-29] MEDS: AZITHROMYCIN INJ 500 MG in SODIUM CHLOR 0.9% 250 ML INJ 250 ML IV SCH (08:20)
[2016-09-29] MEDS: NYSTATIN 100,000 UNIT/GM CREAM 15 GM TOPICAL SCH ×2 (08:20→20:51)
[2016-09-29] MEDS: DEXT 5%-NACL 0.45% 1000 ML INJ 1,000 ML IV SCH (13:45)
--- NOTE | 2016-09-29 14:06 | HHI.PR ---
Subjective Remarks The patient was feeling well and was hoping to leave the hospital soon. She said she had no acute complaints. She wanted to walk around. She said she had been having bowel movements. Discussed with nursing. Objective Vitals Vital Signs Date Time Temp Pulse Resp B/P Pulse Ox O2 Delivery O2 Flow Rate FiO2 09/29/16 12:00 85 09/29/16 11:00 79 09/29/16 11:00 98.0 78 17 109/52 92 09/29/16 10:00 72 09/29/16 09:54 93 Nasal Cannula 3.00 09/29/16 09:00 72 09/29/16 08:00 76 09/29/16 07:00 92 09/29/16 07:00 98.2 78 17 107/60 93 09/29/16 06:00 68 09/29/16 05:00 73 09/29/16 04:00 62 09/29/16 04:00 97.4 62 18 112/68 93 09/29/16 03:00 62 09/29/16 02:00 66 09/29/16 01:00 68 09/29/16 00:00 98.7 71 18 105/56 92 09/29/16 00:00 80 09/28/16 23:00 82 09/28/16 22:00 80 09/28/16 21:00 90 09/28/16 20:00 74 09/28/16 20:00 99.7 86 18 108/64 92 09/28/16 17:17 98.2 89 20 119/54 95 09/28/16 14:00 84 I/O 09/28/16 09/28/16 09/28/16 09/29/16 09/29/16 09/29/16 07:00 15:00 23:00 07:00 15:00 23:00 Intake Total 282 ml 997 ml 1263 ml Balance 282 ml 997 ml 1263 ml Intake Oral 0 ml 240 ml IV Total 282 ml 997 ml 1023 ml # Voids 2 1 Result Diagram: 09/29/16 0545 09/29/16 0545 Imaging Last Impressions Chest X-Ray 09/28/16 0000 Signed Impressions: Service Date/Time: Wednesday, September 28, 2016 03:45 - CONCLUSION: Bibasilar infiltrates. Shahzad Emery MD Myocardial Perfusion Scan Nuc Med 4/13/17 0600 Signed Impressions: Service Date/Time: September 10:16 - CONCLUSION: 1. No fixed or reversible perfusion defect is identified. 2. Normal left ventricle wall motion and ejection fraction. RISK CATEGORY: Low (<1%% Annual Mortality Rate) Esdras Hunt MD Abdomen/Pelvis CT 09/26/16 0925 Signed Impressions: Service Date/Time: Monday, September 26, 2016 10:02 - CONCLUSION: 1. Small hiatal hernia. 2. Hepatic steatosis. 3. Cholelithiasis. There is mild gallbladder wall thickening and gallbladder distention noted. The possibility of cholecystitis should be entertained. 4. Diverticulosis. Butch Watson MD Gall Bladder Ultrasound 09/26/16 0000 Signed Impressions: Service Date/Time: Monday, September 26, 2016 13:37 - CONCLUSION: 1. Cholelithiasis with gallbladder wall thickening. However, sonographic Mandujano's sign is negative. There are not definitive findings to diagnose acute cholecystitis by ultrasound. HIDA scan can help evaluate for cystic duct obstruction, if needed. 2. Hepatic steatosis. Esdras Hunt MD Chest CT 09/26/16 0000 Signed Impressions: Service Date/Time: Monday, September 26, 2016 17:14 - CONCLUSION: No acute cardiopulmonary process. Subcentimeter nodules along the right interlobar fissure consistent with small lymph nodes. No evidence of suspicious pulmonary mass Distended gallbladder with wall thickening. Abdelrahman Hernandez MD Objective Remarks GENERAL: This is a well-nourished, well-developed patient, in no apparent distress. SKIN: No rashes, ecchymoses or lesions. Cool and dry. HEAD: Atraumatic. Normocephalic. No temporal or scalp tenderness. EYES: Pupils equal round and reactive. Extraocular motions intact. No scleral icterus. No injection or drainage. ENT: Nose without bleeding, purulent drainage or septal hematoma. Throat without erythema, tonsillar hypertrophy or exudate. Uvula midline. Airway patent. NECK: Trachea midline. No JVD or lymphadenopathy. Supple, nontender, no meningeal signs. CARDIOVASCULAR: Irregularly irregular without murmurs, gallops, or rubs. RESPIRATORY: Clear to auscultation. Breath sounds equal bilaterally. No wheezes , rales, or rhonchi. GASTROINTESTINAL: Abdomen soft, generalized tenderness to palpation, worse in the right upper quadrant, nondistended. No hepato-splenomegaly, or palpable masses. No guarding. MUSCULOSKELETAL: Extremities without clubbing, cyanosis, or edema. No joint tenderness, effusion, or edema noted. NEUROLOGICAL: Awake and alert. Cranial nerves II through XII intact. Motor and sensory grossly within normal limits. Five out of 5 muscle strength in all muscle groups. Normal speech. PSYCH: Calm. Medications and IVs Current Medications Medications (Trade) Dose Ordered Sig/Cristian Route Start Time Stop Time Status Last Admin (Pravachol) 20 mg DAILY PO 09/27/16 09:00 09/29/16 08:18 (NS Flush) 2 ml UNSCH PRN IV FLUSH 09/26/16 13:30 (NS Flush) 2 ml BID IV FLUSH 09/26/16 21:00 09/29/16 08:18 (Tylenol) 650 mg Q4H PRN PO 09/26/16 13:30 (Zofran Inj) 4 mg Q6H PRN IVP 09/26/16 13:30 09/27/16 14:08 (Colace) 100 mg Q12HR PO 09/26/16 14:00 09/29/16 08:16 (Senokot) 17.2 mg Q12H PRN PO 09/26/16 13:30 (Heparin Inj) 5,000 units Q8HR SQ 09/26/16 14:00 09/29/16 04:21 (Tylenol) 650 mg Q6H PRN PO 09/26/16 13:30 09/26/16 14:40 (Roxicodone) 10 mg Q4H PRN PO 09/26/16 14:00 09/27/16 14:11 (Morphine Inj) 4 mg Q3H PRN IV 09/26/16 13:30 (Roxicodone) 5 mg Q4H PRN PO 09/26/16 13:30 09/28/16 08:16 (Narcan Inj) 0.4 mg UNSCH PRN IV 09/26/16 13:30 (Norvasc) 5 mg DAILY PO 09/26/16 16:00 Hold 09/27/16 08:22 (Romazicon Inj) 0.2 mg Q1M PRN IV PUSH 09/26/16 15:30 (Ativan) 1 mg Q4H PRN PO 09/26/16 15:30 09/28/16 08:16 (Ativan) 2 mg Q2H PRN PO 09/26/16 15:30 (Ativan Inj) 2 mg Q1H PRN IV PUSH 09/26/16 15:30 (Ativan Inj) 2 mg Q15M PRN IV PUSH 09/26/16 15:30 (Catapres) 0.1 mg Q6H PRN PO 09/26/16 15:30 (Vasotec Inj) 1.25 mg Q6H PRN IV PUSH 09/26/16 15:30 Nystatin 1 applic 1 applic Q12HR TOPICAL 09/26/16 16:00 09/29/16 08:20 (Zosyn 3.375 Gm Premix) 50 ml @ 200 mls/hr Q6H IV 09/27/16 14:00 09/29/16 08:22 Pantoprazole Sodium 40 mg 40 mg Q24H IV PUSH 09/27/16 15:00 09/28/16 15:58 (Zithromax Inj/ NS 250 ml Inj) 250 ml @ 250 mls/hr Q24H IV 09/28/16 09:00 09/29/16 08:20 (Vitamin D3) 1,000 units DAILY PO 09/28/16 11:00 09/29/16 08:18 (Cardizem) 60 mg Q6HR PO 09/28/16 12:45 09/29/16 12:15 Aspirin 81 mg 81 mg DAILY PO 09/28/16 14:00 09/29/16 08:18 (D5W-1/2 NS 1000 ml Inj) 1,000 ml @ 100 mls/hr Q10H IV 09/29/16 13:45 09/30/16 09:44 Hold A/P Assessment and Plan Acute cholecystitis/ Cholangitis CT of the abdomen revealed questionable cholecystitis. Right upper quadrant ultrasound also with cholelithiasis and gallbladder wall thickening. LFTs unremarkable. 09/27 pt with worsening RUQ abdominal pain and nausea as well as marked leukocytosis. Appreciate surgical consult. - Serial abdominal exams. - Pain control and antiemetics as needed. - PPI. - start Zosyn as there is concern for cholangitis. - blood cultures x 2. - general surgery considering surgery next week. A fib New onset. HR currently controlled. Echo with normal EF. TSH WNL. - d/c diltiazem gtt. - continue Cardizem 60 mg Q6H. - start ASA. Hold off on full anticoagulation considering alcohol abuse and fall risk. Chest pain/ Right hilar mass The patient presented with right-sided chest pain and chest x-ray cannot exclude a right hilar mass. EKG with sinus bradycardia and right bundle branch block. Trop peaked at 0.28. CT chest with contrast: No acute cardiopulmonary process; Subcentimeter nodules along the right interlobar fissure consistent with small lymph nodes; No evidence of suspicious pulmonary mass; Distended gallbladder with wall thickening. Stress test negative. - chest pain likely s/t above. Pneumonia Repeat CXR with bibasilar infiltrates. - add azithromycin. Continue Zosyn. - repeat CXR. Daily alcohol use The patient endorses 2-3 large glasses of wine daily. She is somewhat tremulous. 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 - [facility] protocol. - Cessation instruction. - PT/ OT evals. HTN Blood pressure improved. - Improved on Cardizem. - Clonidine and Vasotec as needed. Acute renal failure Possibly secondary to decreased by mouth intake. - calculate FeNa. - renal US. - fluids. PPx: Heparin. Discharge Planning Awaiting clinical improvement. Leonard Gibbs DO Sep 29, 2016 14:06
[2016-09-29] MEDS: PANTOPRAZOLE SODIUM 40 MG VIAL IV PUSH SCH (15:03)
--- NOTE | 2016-09-29 16:27 | RADRPT ---
EXAM DATE/TIME: 09/29/2016 15:36 [facility] COMPARISON: CHEST SINGLE AP, September 28, 2016, 3:45. INDICATIONS : Shortness of breath. MEDICAL HISTORY : Hypertension. Cardiovascular disease. SURGICAL HISTORY : None. ENCOUNTER: Subsequent ACUITY: 4 - 6 days PAIN SCORE: 0/10 LOCATION: chest FINDINGS: A single view of the chest demonstrates mild basilar airspace disease. No pneumothorax. Probable trac e pleural fluid. Findings are similar to September 28. Atherosclerotic aorta mildly tortuous. CONCLUSION: 1. Mild basilar airspace disease similar to September 28. Trace pleural fluid. Joe Torrez MD on September 29, 2016 at 16:24 Board Certified Radiologist. This report was verified electronically.
--- NOTE | 2016-09-29 18:03 | RADRPT ---
EXAM DATE/TIME: 09/29/2016 16:49 [facility] COMPARISON: No previous studies available for comparison. INDICATIONS : Increased BUN/creatinine. MEDICAL HISTORY : Dementia. Hypercholesterolemia. Arthritis. Coronary artery disease. Hypertension. Urinary tract infec tions. SURGICAL HISTORY : Hysterectomy. Cataracts removed. ENCOUNTER: Initial ACUITY: 1 day PAIN SCORE: 10 LOCATION: Bilateral flank MEASUREMENTS: RIGHT KIDNEY: 9.9 x 5.5 x 5.2 cm LEFT KIDNEY: 10.4 x 4.9 x 5.4 cm FINDINGS: Kidneys are atrophic. Small exophytic cysts bilaterally measuring about 2 cm on the right and 1.5 cm on the left. Canales catheter in decompressed bladder. CONCLUSION: 1. Atrophic kidneys. Small bilateral cysts. No hydronephrosis. Joe Torrez MD on September 29, 2016 at 17:58 Board Certified Radiologist. This report was verified electronically.
[2016-09-29] MEDS: LORazepam 1 MG TAB PO PRN (20:50)
--- NOTE | 2016-09-29 21:17 | HHI.PR ---
Subjective Subjective Notes No complaints Objective Vitals/I&O Vital Signs Date Time Temp Pulse Resp B/P Pulse Ox O2 Delivery O2 Flow Rate FiO2 09/29/16 18:00 77 09/29/16 15:00 98.3 18 114/56 96 09/29/16 09:54 Nasal Cannula 3.00 Labs Laboratory Tests Test 09/29/16 05:45 White Blood Count 17.7 Red Blood Count 3.34 Hemoglobin 9.8 Hematocrit 31.1 Mean Corpuscular Volume 93.2 Mean Corpuscular Hemoglobin 29.4 Mean Corpuscular Hemoglobin 31.5 Concent Red Cell Distribution Width 13.3 Platelet Count 168 Mean Platelet Volume 9.2 Sodium Level 143 Potassium Level 3.8 Chloride Level 107 Carbon Dioxide Level 25.6 Anion Gap 10 Blood Urea Nitrogen 43 Creatinine 1.60 Estimat Glomerular Filtration 31 Rate Random Glucose 116 Calcium Level 8.5 Magnesium Level 1.9 Date/Time Procedure Status Source Growth 09/27/16 18:10 Urine Culture - Final Complete Urine Clean Catch 50-100,000 CFU/ML MIXED NERI... 09/27/16 15:30 Aerobic Blood Culture - Preliminary Resulted Blood Peripheral NO GROWTH IN 2 DAYS 09/27/16 15:30 Anaerobic Blood Culture - Preliminary Resulted Blood Peripheral NO GROWTH IN 2 DAYS Radiology Allergies Coded Allergies Type Severity Reaction Last Updated Verified No Known Allergies 08/19/13 No Recent Impressions Chest X-Ray 09/28/16 0000 Signed Impressions: Service Date/Time: Wednesday, September 28, 2016 03:45 - CONCLUSION: Bibasilar infiltrates. Shahzad Emery MD Myocardial Perfusion Scan Nuc Med 09/27/16 0600 Signed Impressions: Service Date/Time: September 10:16 - CONCLUSION: 1. No fixed or reversible perfusion defect is identified. 2. Normal left ventricle wall motion and ejection fraction. RISK CATEGORY: Low (<1%% Annual Mortality Rate) Esdras Hunt MD Abdomen/Pelvis CT 09/26/16 0925 Signed Impressions: Service Date/Time: Monday, September 26, 2016 10:02 - CONCLUSION: 1. Small hiatal hernia. 2. Hepatic steatosis. 3. Cholelithiasis. There is mild gallbladder wall thickening and gallbladder distention noted. The possibility of cholecystitis should be entertained. 4. Diverticulosis. Butch Watson MD Chest X-Ray 09/26/16 0908 Signed Impressions: Service Date/Time: Monday, September 26, 2016 09:27 - CONCLUSION: Small left effusion versus scarring suspected. Right hilar mass should be excluded with CT chest with contrast. Butch Watson MD Gall Bladder Ultrasound 09/26/16 0000 Signed Impressions: Service Date/Time: Monday, September 26, 2016 13:37 - CONCLUSION: 1. Cholelithiasis with gallbladder wall thickening. However, sonographic Mandujano's sign is negative. There are not definitive findings to diagnose acute cholecystitis by ultrasound. HIDA scan can help evaluate for cystic duct obstruction, if needed. 2. Hepatic steatosis. Esdras Hunt MD Chest CT 09/26/16 0000 Signed Impressions: Service Date/Time: Monday, September 26, 2016 17:14 - CONCLUSION: No acute cardiopulmonary process. Subcentimeter nodules along the right interlobar fissure consistent with small lymph nodes. No evidence of suspicious pulmonary mass Distended gallbladder with wall thickening. Abdelrahman Hernandez MD //[id number]// 06:00 18:00 06:00 18:00 06:00 18:00 Intake Total 0 ml 282 ml Balance 0 ml 282 ml Intake Oral 0 ml 0 ml IV Total 282 ml # Voids 2 2 Laboratory Tests Test 09/26/16 09/26/16 09/26/16 09/27/16 09:10 15:00 20:59 06:15 White Blood Count 9.8 TH/MM3 23.8 TH/MM3 Red Blood Count 3.69 MIL/MM3 3.49 MIL/MM3 Hemoglobin 11.2 GM/DL 10.6 GM/DL Hematocrit 33.9 % 32.0 % Mean Corpuscular Volume 91.9 FL 91.7 FL Mean Corpuscular Hemoglobin 30.5 PG 30.3 PG Mean Corpuscular Hemoglobin 33.2 % 33.0 % Concent Red Cell Distribution Width 13.4 % 13.2 % Platelet Count 194 TH/MM3 195 TH/MM3 Mean Platelet Volume 8.5 FL 8.7 FL Neutrophils (%) (Auto) 77.0 % 88.5 % Lymphocytes (%) (Auto) 15.6 % 4.8 % Monocytes (%) (Auto) 6.3 % 6.6 % Eosinophils (%) (Auto) 0.6 % 0.0 % Basophils (%) (Auto) 0.5 % 0.1 % Neutrophils # (Auto) 7.5 TH/MM3 21.1 TH/MM3 Lymphocytes # (Auto) 1.5 TH/MM3 1.2 TH/MM3 Monocytes # (Auto) 0.6 TH/MM3 1.6 TH/MM3 Eosinophils # (Auto) 0.1 TH/MM3 0.0 TH/MM3 Basophils # (Auto) 0.1 TH/MM3 0.0 TH/MM3 CBC Comment DIFF FINAL DIFF FINAL Differential Comment Sodium Level 140 MEQ/L 142 MEQ/L Potassium Level 3.7 MEQ/L 4.1 MEQ/L Chloride Level 104 MEQ/L 107 MEQ/L Carbon Dioxide Level 27.6 MEQ/L 26.8 MEQ/L Anion Gap 8 MEQ/L 8 MEQ/L Blood Urea Nitrogen 27 MG/DL 27 MG/DL Creatinine 1.06 MG/DL 1.28 MG/DL Estimat Glomerular Filtration 50 ML/MIN 40 ML/MIN Rate Random Glucose 146 MG/DL 120 MG/DL Calcium Level 9.6 MG/DL 8.8 MG/DL Total Bilirubin 0.4 MG/DL 0.9 MG/DL Direct Bilirubin 0.1 MG/DL Indirect Bilirubin 0.3 MG/DL Aspartate Amino Transf 19 U/L 17 U/L (AST/SGOT) Alanine Aminotransferase 22 U/L 22 U/L (ALT/SGPT) Alkaline Phosphatase 62 U/L 57 U/L Total Creatine Kinase 56 U/L Troponin I 0.06 NG/ML 0.19 NG/ML 0.28 NG/ML Total Protein 8.0 GM/DL 7.2 GM/DL Albumin 3.6 GM/DL 3.2 GM/DL Lipase 168 U/L Hemoglobin A1c 5.7 % Test 09/27/16 09/27/16 09/28/16 09/28/16 09:15 18:10 03:02 04:37 Troponin I 0.19 NG/ML 0.13 NG/ML Urine Color YELLOW Urine Turbidity HAZY Urine pH 8.0 Urine Specific [place] 1.047 Urine Protein 30 mg/dL Urine Glucose (UA) NEG mg/dL Urine Ketones TRACE mg/dL Urine Occult Blood TRACE Urine Nitrite NEG Urine Bilirubin NEG Urine Urobilinogen LESS THAN 2.0 MG/DL Urine Leukocyte Esterase MOD Urine RBC 1 /hpf Urine WBC 11 /hpf Urine Squamous Epithelial 1 /hpf Cells Urine Bacteria OCC /hpf Urine Mucus FEW /lpf Microscopic Urinalysis Comment CULTURE INDICATED White Blood Count 19.4 TH/MM3 Red Blood Count 3.24 MIL/MM3 Hemoglobin 9.9 GM/DL Hematocrit 29.9 % Mean Corpuscular Volume 92.3 FL Mean Corpuscular Hemoglobin 30.7 PG Mean Corpuscular Hemoglobin 33.3 % Concent Red Cell Distribution Width 13.5 % Platelet Count 155 TH/MM3 Mean Platelet Volume 8.8 FL Neutrophils (%) (Auto) 87.1 % Lymphocytes (%) (Auto) 6.4 % Monocytes (%) (Auto) 5.9 % Eosinophils (%) (Auto) 0.1 % Basophils (%) (Auto) 0.5 % Neutrophils # (Auto) 16.9 TH/MM3 Lymphocytes # (Auto) 1.2 TH/MM3 Monocytes # (Auto) 1.1 TH/MM3 Eosinophils # (Auto) 0.0 TH/MM3 Basophils # (Auto) 0.1 TH/MM3 CBC Comment Differential Total Cells 100 Counted Neutrophils % (Manual) 70 % Band Neutrophils % 20 % Lymphocytes % 6 % Monocytes % 4 % Neutrophils # (Manual) 17.5 TH/MM3 Differential Comment FINAL DIFF MANUAL Platelet Estimate NORMAL Platelet Morphology Comment NORMAL Hematology Comments AD Sodium Level 142 MEQ/L Potassium Level 3.7 MEQ/L Chloride Level 106 MEQ/L Carbon Dioxide Level 26.8 MEQ/L Anion Gap 9 MEQ/L Blood Urea Nitrogen 36 MG/DL Creatinine 1.42 MG/DL Estimat Glomerular Filtration 35 ML/MIN Rate Random Glucose 110 MG/DL Calcium Level 8.2 MG/DL Magnesium Level 1.6 MG/DL Total Bilirubin 0.9 MG/DL Aspartate Amino Transf 25 U/L (AST/SGOT) Alanine Aminotransferase 29 U/L (ALT/SGPT) Alkaline Phosphatase 49 U/L Total Creatine Kinase 141 U/L B-Type Natriuretic Peptide 238 PG/ML Total Protein 6.7 GM/DL Albumin 2.8 GM/DL Lactic Acid Level 0.9 mmol/L Test 09/28/16 07:40 D-Dimer Quantitative (PE/DVT) 2.48 MG/L FEU Procedure Category Date Status Time Electrocardiogram CAV 09/26/16 Resulted 09:08 Complete Blood Count LAB 09/26/16 Complete With Diff 09:08 Basic Metabolic Panel LAB 09/26/16 Complete (Bmp) 09:08 Ckmb (Isoenzyme) LAB 09/26/16 Complete Profile 09:08 Troponin I LAB 09/26/16 Complete 09:08 Chest, Single Ap RADDIAG 09/26/16 Resulted 09:08 Iv Access TX 09/26/16 Transmitted Insert/Monitor 09:08 Ecg Monitoring TX 09/26/16 Transmitted 09:08 Oxygen Administration TX 09/26/16 Transmitted 09:08 Oximetry TX 09/26/16 Transmitted 09:08 Ondansetron Inj MED 09/26/16 Complete (Zofran Inj) 09:10 Hepatic Functional LAB 09/26/16 Complete Panel 09:25 Lipase LAB 09/26/16 Complete 09:25 Ct Abd/Pel W Iv RADCT 09/26/16 Resulted Contrast(Rout) 09:25 Hydromorphone Pf Inj MED 09/26/16 Complete (Dilaudid Pf Inj) 09:30 Ondansetron Inj MED 09/26/16 Complete (Zofran Inj) 10:45 Admit Order (Ed Use ADMITTING 09/26/16 Transmitted Only) 11:29 Us Abdomen Gallbladder RADUS 09/26/16 Resulted Cholecalciferol MED 09/27/16 Complete (Vitamin D3) 09:00 Pantoprazole MED 09/27/16 Complete (Protonix) 09:00 Pravastatin MED 09/27/16 In Process (Pravachol) 09:00 Place In Observation ADMITTING 09/26/16 Transmitted Vital Signs (Adult) GURPREET 09/26/16 Complete 13:19 Activity Oob With GURPREET 09/26/16 In Process Assistance 13:19 Public Relations Consultant / GURPREET 09/26/16 In Process Telemetry 13:19 Sodium Chlor 0.9% MED 09/26/16 Complete 1000 Ml Inj (Ns 1000 M 14:00 Sodium Chloride 0.9% MED 09/26/16 In Process Flush (Ns Flush) 13:30 Sodium Chloride 0.9% MED 09/26/16 In Process Flush (Ns Flush) 21:00 Acetaminophen MED 09/26/16 In Process (Tylenol) 13:30 Ondansetron Inj MED 09/26/16 In Process (Zofran Inj) 13:30 Docusate Sodium MED 09/26/16 In Process (Colace) 14:00 Sennosides (Senokot) MED 09/26/16 In Process 13:30 Comprehensive LAB 09/27/16 Complete Metabolic Panel 06:00 Complete Blood Count LAB 09/27/16 Complete With Diff 06:00 Troponin I LAB 09/26/16 Complete 15:00 Troponin I LAB 09/26/16 Complete 21:00 Electrocardiogram CAV 09/27/16 Resulted 06:00 Resp Oxygen Brandt C RSP 09/26/16 Logged Titrat 1-4 L Heparin Inj (Heparin MED 09/26/16 In Process Inj) 14:00 Acetaminophen MED 09/26/16 In Process (Tylenol) 13:30 Morphine Inj MED 09/26/16 In Process (Morphine Inj) 13:30 Oxycodone (Roxicodone) MED 09/26/16 In Process 13:30 Naloxone Inj (Narcan MED 09/26/16 In Process Inj) 13:30 Oxycodone (Roxicodone) MED 09/26/16 In Process 14:00 Amlodipine (Norvasc) MED 09/26/16 In Process 16:00 Alcohol Withdrawal GURPREET 09/26/16 In Process Asmt-Ciwa 15:28 Flumazenil Inj MED 09/26/16 In Process (Romazicon Inj) 15:30 Lorazepam (Ativan) MED 09/26/16 In Process 15:30 Lorazepam (Ativan) MED 09/26/16 In Process 15:30 Lorazepam Inj (Ativan MED 09/26/16 In Process Inj) 15:30 Lorazepam Inj (Ativan MED 09/26/16 In Process Inj) 15:30 Clonidine (Catapres) MED 09/26/16 In Process 15:30 Enalaprilat Inj MED 09/26/16 In Process (Vasotec Inj) 15:30 Consult Pt Eval & PT 09/26/16 Logged Treat 15:31 Ot Request For Service OT 09/26/16 Logged 15:31 Case Management CONS 09/26/16 Transmitted Consult Nystatin Cream MED 09/26/16 In Process (Mycostatin Cream) 16:00 Ct Thorax/ Chest W Iv RADCT 09/26/16 Resulted Contrast Code Status CODE 09/26/16 Transmitted 15:52 Electrocardiogram CAV 09/26/16 Resulted Diet Heart Healthy DIET 09/26/16 Complete Dinner Hemoglobin (Hgb) A1c LAB 09/26/16 Complete 16:00 Npo After Midnight W/ DIET 09/27/16 Transmitted Po Meds Breakfast Myocardial Perf Pharm RADNM 09/27/16 Resulted Sp W/Ef 06:00 Admit To Inpatient ADMITTING 09/26/16 Transmitted Inpatient ADMITTING 09/26/16 Transmitted Certification Patient Transfer ADMITTING 09/26/16 Transmitted Iohexol 350 Inj MED 09/26/16 Complete (Omnipaque 350 Inj) 17:20 Troponin I LAB 09/27/16 Complete 08:40 Dext 5%-Nacl 0.45% MED 09/27/16 Complete 1000 Ml Inj (D5w-12 08:45 (Hub Use Only)Inp Phy CONS 09/27/16 Transmitted Cons/Ref Stress Pharm/Non-Real Estate Executive Assistant RADNM 09/27/16 Complete 11:21 Regadenoson Inj MED 09/27/16 Complete (Lexiscan Inj) 11:23 Aminophylline Inj MED 09/27/16 Complete (Aminophylline Inj) 11:37 Piperacil-Tazo 3.375 MED 09/27/16 In Process Gm Premix (Zosyn 3. 14:00 Blood Culture SANDER 09/27/16 In Process 13:30 Consult General CONS 09/27/16 Transmitted Surgery Pantoprazole MED 09/28/16 Complete (Protonix) 09:00 Pantoprazole Inj MED 09/27/16 In Process (Protonix Inj) 15:00 Sodium Chlor 0.9% MED 09/27/16 Complete 1000 Ml Inj (Ns 1000 M 15:00 Consult Za Nfs CONS 09/27/16 Transmitted (Hub Use Only)Inp Phy CONS 09/27/16 Transmitted Cons/Ref Urinalysis - C+S If LAB 09/27/16 Complete Indicated 16:30 Specimen To Be GURPREET 09/27/16 In Process Collected 16:30 Urine Culture SANDER 09/27/16 In Process 18:10 Lorazepam Inj (Ativan MED 09/28/16 Complete Inj) 01:15 Lorazepam Inj (Ativan MED 09/28/16 Complete Inj) 01:45 Electrocardiogram CAV 09/28/16 Resulted Diltiazem (Cardizem) MED 09/28/16 Complete 02:00 Diltiazem Inj MED 09/28/16 Complete (Cardizem Inj) 03:00 Complete Blood Count LAB 09/28/16 Complete With Diff 02:47 Creatine Kinase (Cpk) LAB 09/28/16 Complete 02:47 Troponin I LAB 09/28/16 Complete 02:47 B-Type Natriuretic LAB 09/28/16 Complete Peptide 02:47 Magnesium (Mg) LAB 09/28/16 Complete 02:47 Patient Transfer ADMITTING 09/28/16 Transmitted Chest, Single Ap RADDIAG 09/28/16 Resulted Lactic Acid LAB 09/28/16 Complete 03:24 Comprehensive LAB 09/28/16 Complete Metabolic Panel 03:02 D-Dimer LAB 09/28/16 Complete 04:07 Vital Signs (Adult) GURPREET 09/28/16 In Process 04:08 Public Relations Consultant / GURPREET 09/28/16 In Process Telemetry 04:08 Cardiac Rhythm GURPREET 09/28/16 In Process 04:[address]: Other GURPREET 09/28/16 In Process 04:08 Diltiazem Inj MED 09/28/16 In Process (Cardizem Inj) 04:15 Azithromycin Inj MED 09/28/16 In Process (Zithromax Inj) 09:00 (Hub Use Only)Inp Phy CONS 09/28/16 Transmitted Cons/Ref Cholecalciferol MED 09/28/16 In Process (Vitamin D3) 11:00 Dext 5%-Nacl 0.9% MED 09/28/16 In Process 1000 Ml Inj (D5w-Ns 10 13:00 Diltiazem (Cardizem) MED 09/28/16 In Process 12:45 Vital Signs Date Time Temp Pulse Resp B/P Pulse Ox O2 Delivery O2 Flow Rate FiO2 09/28/16 11:42 98.4 86 18 113/52 96 09/28/16 10:00 22 09/28/16 08:25 98.7 84 22 136/68 97 09/28/16 03:00 98.2 144 25 115/75 91 09/28/16 03:00 144 09/28/16 02:55 140 88/71 94 09/27/16 23:57 98.4 76 20 113/57 96 09/27/16 19:18 98.4 86 20 90/45 95 09/27/16 15:10 99.0 87 20 122/94 91 09/27/16 14:17 09/27/16 13:00 97.7 78 16 133/63 94 09/27/16 08:17 96.8 78 16 133/63 87 09/27/16 08:00 91 09/27/16 03:24 98.7 88 18 137/56 95 09/26/16 23:53 97.4 95 18 114/59 96 09/26/16 23:00 16 09/26/16 20:38 99.5 70 20 131/55 96 09/26/16 15:27 98.3 67 16 176/72 96 09/26/16 14:44 65 16 168/75 96 Nasal Cannula 2 09/26/16 12:24 97.9 64 20 177/117 92 Room Air 09/26/16 10:15 14 09/26/16 09:23 98 Nasal Cannula 2 09/26/16 09:23 98 Nasal Cannula 2.00 09/26/16 09:23 16 89 Room Air 09/26/16 09:23 51 98 Nasal Cannula 2 09/26/16 09:16 97.7 49 16 185/96 89 Last Impressions Chest X-Ray 09/28/16 0000 Signed Impressions: Service Date/Time: Wednesday, September 28, 2016 03:45 - CONCLUSION: Bibasilar infiltrates. Shahzad Emery MD Myocardial Perfusion Scan Nuc Med 09/27/16 0600 Signed Impressions: Service Date/Time: September 10:16 - CONCLUSION: 1. No fixed or reversible perfusion defect is identified. 2. Normal left ventricle wall motion and ejection fraction. RISK CATEGORY: Low (<1%% Annual Mortality Rate) Esdras Hunt MD Abdomen/Pelvis CT 09/26/16 0925 Signed Impressions: Service Date/Time: Monday, September 26, 2016 10:02 - CONCLUSION: 1. Small hiatal hernia. 2. Hepatic steatosis. 3. Cholelithiasis. There is mild gallbladder wall thickening and gallbladder distention noted. The possibility of cholecystitis should be entertained. 4. Diverticulosis. Butch Watson MD Gall Bladder Ultrasound 09/26/16 0000 Signed Impressions: Service Date/Time: Monday, September 26, 2016 13:37 - CONCLUSION: 1. Cholelithiasis with gallbladder wall thickening. However, sonographic Mandujano's sign is negative. There are not definitive findings to diagnose acute cholecystitis by ultrasound. HIDA scan can help evaluate for cystic duct obstruction, if needed. 2. Hepatic steatosis. Esdras Hunt MD Chest CT 09/26/16 0000 Signed Impressions: Service Date/Time: Monday, September 26, 2016 17:14 - CONCLUSION: No acute cardiopulmonary process. Subcentimeter nodules along the right interlobar fissure consistent with small lymph nodes. No evidence of suspicious pulmonary mass Distended gallbladder with wall thickening. Abdelrahman Hernandez MD Lungs: Clear Abdomen: Non-distended A/P Problem List: (1) Cholecystitis (2) A-fib (3) Elevated troponin (4) Umbilical hernia (5) EtOH dependence (6) Gallstones (7) Abnormal CT of the abdomen (8) RUQ abdominal pain (9) UTI (urinary tract infection) (10) Pneumonia (11) Confusion state (12) Abnormality of lung on CXR (13) Abnormal finding on EKG Assessment and Plan Problem List: (1) Cholecystitis (2) A-fib (3) Elevated troponin (4) Umbilical hernia (5) EtOH dependence (6) Gallstones (7) Abnormal CT of the abdomen (8) RUQ abdominal pain (9) UTI (urinary tract infection) (10) Pneumonia (11) Confusion state (12) Abnormality of lung on CXR (13) Abnormal finding on EKG Assessment and Plan 85-year-old female with cholelithiasis cholecystitis Has a UTI and pneumonia We'll plan surgical intervention once stabilized possibly middle of next week Leonard Martins MD Sep 29, 2016 21:17
[2016-09-30] VITALS (28 sets, daily range): BP systolic 95–147; BP diastolic 50–68; PULSE 61–79; RESP 12–24; TEMP 97.6–98.6; O2SAT 93–96
[2016-09-30] MEDS: DILTIAZEM HCL 60 MG TAB PO SCH ×2 (00:13→06:19)
[2016-09-30] MEDS: PIPERACIL-TAZO 3.375 GM PREMIX 50 ML IV SCH ×4 (02:00→20:00)
[2016-09-30] MEDS: HEPARIN SODIUM - SQ 10,000 UNITS/ML VIAL SQ SCH ×3 (06:19→21:27)
[2016-09-30] MEDS: PRAVASTATIN SOD 20 MG TAB PO SCH (08:00)
[2016-09-30] MEDS: CHOLECALCIFEROL (VIT D3) 1000 UNIT TAB PO SCH (08:00)
[2016-09-30] MEDS: ASPIRIN EC 81 MG TABEC PO SCH (08:00)
[2016-09-30] MEDS: DOCUSATE SODIUM 100 MG CAP PO SCH ×2 (08:00→21:25)
[2016-09-30] MEDS: SODIUM CHLORIDE 0.9% FLUSH 10 ML FLUSH IV FLUSH SCH ×2 (08:01→21:00)
[2016-09-30] MEDS: AZITHROMYCIN INJ 500 MG in SODIUM CHLOR 0.9% 250 ML INJ 250 ML IV SCH (08:05)
[2016-09-30] MEDS: NYSTATIN 100,000 UNIT/GM CREAM 15 GM TOPICAL SCH ×2 (08:08→21:25)
[2016-09-30 09:00] LABS: HEMATOCRIT 28.7 % (35.0-46.0); MEAN CELL VOLUME 92.2 FL (80.0-100.0); MEAN CORPUSCULAR HEMOGLOBIN 29.6 PG (27.0-34.0); MEAN CORPUSCULAR HGB CONC 32.1 % (32.0-36.0); PLATELET COUNT 189 TH/MM3 (150-450); RED BLOOD COUNT 3.12 MIL/MM3 (4.00-5.30); REVIEW FLAG FINAL; WHITE BLOOD COUNT 16.7 TH/MM3 (4.0-11.0)
--- NOTE | 2016-09-30 09:33 | HHI.PR ---
Subjective Remarks The patient was lethargic. She stated that she didn't have an appetite. She had no acute complaints. Discussed with nursing, who was at the bedside. Objective Vitals Vital Signs Date Time Temp Pulse Resp B/P Pulse Ox O2 Delivery O2 Flow Rate FiO2 09/30/16 07:00 97.6 66 24 95/50 93 09/30/16 06:00 63 09/30/16 05:00 68 09/30/16 04:00 65 09/30/16 04:00 97.7 67 18 105/57 93 09/30/16 03:00 66 09/30/16 02:00 68 09/30/16 01:00 70 09/30/16 00:00 66 09/30/16 00:00 97.9 69 22 117/52 96 09/29/16 23:00 68 09/29/16 22:00 74 09/29/16 21:00 78 09/29/16 20:00 85 09/29/16 20:00 98.6 74 24 138/67 94 09/29/16 19:00 90 09/29/16 18:00 77 09/29/16 17:00 75 09/29/16 16:00 82 09/29/16 15:00 98.3 82 18 114/56 96 09/29/16 15:00 73 09/29/16 14:00 82 09/29/16 13:00 83 09/29/16 12:00 85 09/29/16 11:00 79 09/29/16 11:00 98.0 78 17 109/52 92 09/29/16 10:00 72 09/29/16 09:54 93 Nasal Cannula 3.00 I/O 09/29/16 09/29/16 09/29/16 09/30/16 09/30/16 09/30/16 07:00 15:00 23:00 07:00 15:00 23:00 Intake Total 1263 ml 1160 ml 520 ml Output Total 325 ml 300 ml Balance 1263 ml 835 ml 220 ml Intake Oral 240 ml 360 ml 320 ml IV Total 1023 ml 800 ml 200 ml Output Urine Total 325 ml 300 ml # Voids 1 3 # Bowel Movements 0 Result Diagram: 09/30/16 0750 09/29/16 0545 Imaging Last Impressions Renal Ultrasound 09/29/16 0000 Signed Impressions: Service Date/Time: Thursday, September 29, 2016 16:49 - CONCLUSION: 1. Atrophic kidneys. Small bilateral cysts. No hydronephrosis. Joe Torrez MD Chest X-Ray 09/29/16 0000 Signed Impressions: Service Date/Time: Thursday, September 29, 2016 15:36 - CONCLUSION: 1. Mild basilar airspace disease similar to September 28. Trace pleural fluid. Joe Torrez MD Myocardial Perfusion Scan [facility] 09/27/16 0600 Signed Impressions: Service Date/Time: September 10:16 - CONCLUSION: 1. No fixed or reversible perfusion defect is identified. 2. Normal left ventricle wall motion and ejection fraction. RISK CATEGORY: Low (<1%% Annual Mortality Rate) Esdras Hunt MD Abdomen/Pelvis CT 09/26/16 0925 Signed Impressions: Service Date/Time: Monday, September 26, 2016 10:02 - CONCLUSION: 1. Small hiatal hernia. 2. Hepatic steatosis. 3. Cholelithiasis. There is mild gallbladder wall thickening and gallbladder distention noted. The possibility of cholecystitis should be entertained. 4. Diverticulosis. Butch Watson MD Gall Bladder Ultrasound 09/26/16 0000 Signed Impressions: Service Date/Time: Monday, September 26, 2016 13:37 - CONCLUSION: 1. Cholelithiasis with gallbladder wall thickening. However, sonographic Mandujano's sign is negative. There are not definitive findings to diagnose acute cholecystitis by ultrasound. HIDA scan can help evaluate for cystic duct obstruction, if needed. 2. Hepatic steatosis. Esdras Hunt MD Chest CT 09/26/16 0000 Signed Impressions: Service Date/Time: Monday, September 26, 2016 17:14 - CONCLUSION: No acute cardiopulmonary process. Subcentimeter nodules along the right interlobar fissure consistent with small lymph nodes. No evidence of suspicious pulmonary mass Distended gallbladder with wall thickening. Abdelrahman Hernandez MD Objective Remarks GENERAL: This is a well-nourished, well-developed patient, in no apparent distress. SKIN: No rashes, ecchymoses or lesions. Cool and dry. HEAD: Atraumatic. Normocephalic. No temporal or scalp tenderness. EYES: Pupils equal round and reactive. Extraocular motions intact. No scleral icterus. No injection or drainage. ENT: Nose without bleeding, purulent drainage or septal hematoma. Throat without erythema, tonsillar hypertrophy or exudate. Uvula midline. Airway patent. NECK: Trachea midline. No JVD or lymphadenopathy. Supple, nontender, no meningeal signs. CARDIOVASCULAR: Irregularly irregular without murmurs, gallops, or rubs. RESPIRATORY: Clear to auscultation. Breath sounds equal bilaterally. No wheezes , rales, or rhonchi. GASTROINTESTINAL: Abdomen soft, generalized tenderness to palpation, worse in the right upper quadrant, nondistended. No hepato-splenomegaly, or palpable masses. No guarding. MUSCULOSKELETAL: Extremities without clubbing, cyanosis, or edema. No joint tenderness, effusion, or edema noted. NEUROLOGICAL: Awake and alert. Cranial nerves II through XII intact. Motor and sensory grossly within normal limits. Five out of 5 muscle strength in all muscle groups. Normal speech. PSYCH: Calm. Medications and IVs Current Medications Medications (Trade) Dose Ordered Sig/Cristian Route Start Time Stop Time Status Last Admin (Pravachol) 20 mg DAILY PO 09/27/16 09:00 09/30/16 08:00 (NS Flush) 2 ml UNSCH PRN IV FLUSH 09/26/16 13:30 (NS Flush) 2 ml BID IV FLUSH 09/26/16 21:00 09/30/16 08:01 (Tylenol) 650 mg Q4H PRN PO 09/26/16 13:30 (Zofran Inj) 4 mg Q6H PRN IVP 09/26/16 13:30 09/27/16 14:08 (Colace) 100 mg Q12HR PO 09/26/16 14:00 09/30/16 08:00 (Senokot) 17.2 mg Q12H PRN PO 09/26/16 13:30 (Heparin Inj) 5,000 units Q8HR SQ 09/26/16 14:00 09/30/16 06:19 (Tylenol) 650 mg Q6H PRN PO 09/26/16 13:30 09/26/16 14:40 (Roxicodone) 10 mg Q4H PRN PO 09/26/16 14:00 09/29/16 20:50 (Morphine Inj) 4 mg Q3H PRN IV 09/26/16 13:30 (Roxicodone) 5 mg Q4H PRN PO 09/26/16 13:30 09/28/16 08:16 (Narcan Inj) 0.4 mg UNSCH PRN IV 09/26/16 13:30 (Norvasc) 5 mg DAILY PO 09/26/16 16:00 Hold 09/27/16 08:22 (Romazicon Inj) 0.2 mg Q1M PRN IV PUSH 09/26/16 15:30 (Ativan) 1 mg Q4H PRN PO 09/26/16 15:30 09/29/16 20:50 (Ativan) 2 mg Q2H PRN PO 09/26/16 15:30 (Ativan Inj) 2 mg Q1H PRN IV PUSH 09/26/16 15:30 (Ativan Inj) 2 mg Q15M PRN IV PUSH 09/26/16 15:30 (Catapres) 0.1 mg Q6H PRN PO 09/26/16 15:30 (Vasotec Inj) 1.25 mg Q6H PRN IV PUSH 09/26/16 15:30 Nystatin 1 applic 1 applic Q12HR TOPICAL 09/26/16 16:00 09/30/16 08:08 (Zosyn 3.375 Gm Premix) 50 ml @ 200 mls/hr Q6H IV 09/27/16 14:00 09/30/16 07:58 Pantoprazole Sodium 40 mg 40 mg Q24H IV PUSH 09/27/16 15:00 09/29/16 15:03 (Zithromax Inj/ NS 250 ml Inj) 250 ml @ 250 mls/hr Q24H IV 09/28/16 09:00 09/30/16 08:05 (Vitamin D3) 1,000 units DAILY PO 09/28/16 11:00 09/30/16 08:00 (Cardizem) 60 mg Q6HR PO 09/28/16 12:45 09/30/16 06:19 Aspirin 81 mg 81 mg DAILY PO 09/28/16 14:00 09/30/16 08:00 (D5W-1/2 NS 1000 ml Inj) 1,000 ml @ 100 mls/hr Q10H IV 09/29/16 13:45 09/30/16 09:44 A/P Assessment and Plan Acute cholecystitis/ Cholangitis CT of the abdomen revealed questionable cholecystitis. Right upper quadrant ultrasound also with cholelithiasis and gallbladder wall thickening. LFTs unremarkable. 09/27 pt with worsening RUQ abdominal pain and nausea as well as marked leukocytosis. Appreciate surgical consult. - Pain control and antiemetics as needed. - PPI. - started Zosyn as there is concern for cholangitis. - blood cultures x 2. NGTD. - general surgery considering surgery next week. A fib New onset. HR currently controlled. Echo with normal EF. TSH WNL. - d/c diltiazem gtt. - reduce Cardizem to 45 mg Q6H. - start ASA. Hold off on full anticoagulation considering alcohol abuse, fall risk and concern for noncompliance. Chest pain/ Right hilar mass The patient presented with right-sided chest pain and chest x-ray cannot exclude a right hilar mass. EKG with sinus bradycardia and right bundle branch block. Trop peaked at 0.28. CT chest with contrast: No acute cardiopulmonary process; Subcentimeter nodules along the right interlobar fissure consistent with small lymph nodes; No evidence of suspicious pulmonary mass; Distended gallbladder with wall thickening. Stress test negative. - chest pain likely s/t above. Pneumonia Repeat CXR with bibasilar infiltrates. - add azithromycin. Continue Zosyn. - nebs as needed. - incentive spirometry. Daily alcohol use The patient endorses 2-3 large glasses of wine daily. She is somewhat tremulous. 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 - [facility] protocol. - Cessation instruction. - PT/ OT evals. ST cognitive eval requested. - folate, thiamine, MVI. HTN Blood pressure improved. - continue Cardizem. - Clonidine and Vasotec as needed. Acute renal failure Possibly secondary to decreased by mouth intake. FeNa consistent with prerenal etiology. Renal US: Atrophic kidneys; Small bilateral cysts; No hydronephrosis. - fluids. - nephrology consult if no improvement. - Canales to monitor Is and Os. PPx: Heparin. Discharge Planning Awaiting clinical improvement. Leonard Gibbs DO Sep 30, 2016 09:33
[2016-09-30 09:37] LABS: BICARBONATE 26.4 MEQ/L (21.0-32.0); MAGNESIUM 2.1 MG/DL (1.5-2.5); POTASSIUM 3.4 MEQ/L (3.5-5.1)
[2016-09-30] MEDS ORDERED: POTASSIUM CHLORIDE 25 MEQ EFFERVESCENT TAB PO ONE (09:45)
[2016-09-30] MEDS ORDERED: PILL SPLITTER OTHER PRN (09:45)
[2016-09-30] MEDS ORDERED: RESP: ALBUTEROL 2.5 MG/IPRATROPIUM 0.5 MG NEB (SCH) NEB ONE (09:45)
[2016-09-30] MEDS: DILTIAZEM HCL 30 MG TAB PO SCH ×2 (12:00→17:30)
--- NOTE | 2016-09-30 14:30 | PD.PN.STU ---
Subjective Remarks DAILY PROGRESS NOTE FOR SURGICAL ATTENDING, DR. JOE HERRMANN 85 year-old female with gallstones, atrial fib, and pneumonia has been showing signs of altered mental status and sundowning. She has been sleeping all morning. Objective Vitals Vital Signs Date Time Temp Pulse Resp B/P Pulse Ox O2 Delivery O2 Flow Rate FiO2 09/30/16 12:00 66 09/30/16 11:49 95 Nasal Cannula 3.50 09/30/16 11:00 98.6 71 12 107/60 95 09/30/16 11:00 61 09/30/16 10:00 66 09/30/16 09:00 74 09/30/16 08:00 72 09/30/16 07:00 74 09/30/16 07:00 97.6 66 24 95/50 93 09/30/16 06:00 63 09/30/16 05:00 68 09/30/16 04:00 65 09/30/16 04:00 97.7 67 18 105/57 93 09/30/16 03:00 66 09/30/16 02:00 68 09/30/16 01:00 70 09/30/16 00:00 66 09/30/16 00:00 97.9 69 22 117/52 96 09/29/16 23:00 68 09/29/16 22:00 74 09/29/16 21:00 78 09/29/16 20:00 85 09/29/16 20:00 98.6 74 24 138/67 94 09/29/16 19:00 90 09/29/16 18:00 77 09/29/16 17:00 75 09/29/16 16:00 82 09/29/16 15:00 98.3 82 18 114/56 96 09/29/16 15:00 73 I/O 09/29/16 09/29/16 09/29/16 09/30/16 09/30/16 09/30/16 07:00 15:00 23:00 07:00 15:00 23:00 Intake Total 1263 ml 1160 ml 520 ml Output Total 325 ml 300 ml Balance 1263 ml 835 ml 220 ml Intake Oral 240 ml 360 ml 320 ml IV Total 1023 ml 800 ml 200 ml Output Urine Total 325 ml 300 ml # Voids 1 3 # Bowel Movements 0 Result Diagram: 09/30/16 0750 09/30/16 0750 Imaging Last Impressions Renal Ultrasound 09/29/16 0000 Signed Impressions: Service Date/Time: Thursday, September 29, 2016 16:49 - CONCLUSION: 1. Atrophic kidneys. Small bilateral cysts. No hydronephrosis. Joe Torrez MD Chest X-Ray 09/29/16 0000 Signed Impressions: Service Date/Time: Thursday, September 29, 2016 15:36 - CONCLUSION: 1. Mild basilar airspace disease similar to September 28. Trace pleural fluid. Joe Torrez MD Myocardial Perfusion Scan Nuc Med 09/27/16 0600 Signed Impressions: Service Date/Time: September 10:16 - CONCLUSION: 1. No fixed or reversible perfusion defect is identified. 2. Normal left ventricle wall motion and ejection fraction. RISK CATEGORY: Low (<1%% Annual Mortality Rate) Esdras Hunt MD Abdomen/Pelvis CT 09/26/16 0925 Signed Impressions: Service Date/Time: Monday, September 26, 2016 10:02 - CONCLUSION: 1. Small hiatal hernia. 2. Hepatic steatosis. 3. Cholelithiasis. There is mild gallbladder wall thickening and gallbladder distention noted. The possibility of cholecystitis should be entertained. 4. Diverticulosis. Butch Watson MD Gall Bladder Ultrasound 09/26/16 0000 Signed Impressions: Service Date/Time: Monday, September 26, 2016 13:37 - CONCLUSION: 1. Cholelithiasis with gallbladder wall thickening. However, sonographic Mandujano's sign is negative. There are not definitive findings to diagnose acute cholecystitis by ultrasound. HIDA scan can help evaluate for cystic duct obstruction, if needed. 2. Hepatic steatosis. Esdras Hunt MD Chest CT 09/26/16 0000 Signed Impressions: Service Date/Time: Monday, September 26, 2016 17:14 - CONCLUSION: No acute cardiopulmonary process. Subcentimeter nodules along the right interlobar fissure consistent with small lymph nodes. No evidence of suspicious pulmonary mass Distended gallbladder with wall thickening. Abdelrahman Hernandez MD Objective Remarks The patient appears sedated and in no distress. She has been sleeping comfortably this morning. Medications and IVs Current Medications Medications (Trade) Dose Ordered Sig/Cristian Route Start Time Stop Time Status Last Admin (Pravachol) 20 mg DAILY PO 09/27/16 09:00 09/30/16 08:00 (NS Flush) 2 ml UNSCH PRN IV FLUSH 09/26/16 13:30 (NS Flush) 2 ml BID IV FLUSH 09/26/16 21:00 09/30/16 08:01 (Tylenol) 650 mg Q4H PRN PO 09/26/16 13:30 (Zofran Inj) 4 mg Q6H PRN IVP 09/26/16 13:30 09/27/16 14:08 (Colace) 100 mg Q12HR PO 09/26/16 14:00 09/30/16 08:00 (Senokot) 17.2 mg Q12H PRN PO 09/26/16 13:30 (Heparin Inj) 5,000 units Q8HR SQ 09/26/16 14:00 09/30/16 06:19 (Tylenol) 650 mg Q6H PRN PO 09/26/16 13:30 09/26/16 14:40 (Roxicodone) 5 mg Q4H PRN PO 09/26/16 13:30 09/28/16 08:16 (Narcan Inj) 0.4 mg UNSCH PRN IV 09/26/16 13:30 (Norvasc) 5 mg DAILY PO 09/26/16 16:00 Hold 09/27/16 08:22 (Romazicon Inj) 0.2 mg Q1M PRN IV PUSH 09/26/16 15:30 (Ativan) 1 mg Q4H PRN PO 09/26/16 15:30 09/29/16 20:50 (Ativan) 2 mg Q2H PRN PO 09/26/16 15:30 (Ativan Inj) 2 mg Q1H PRN IV PUSH 09/26/16 15:30 (Ativan Inj) 2 mg Q15M PRN IV PUSH 09/26/16 15:30 (Catapres) 0.1 mg Q6H PRN PO 09/26/16 15:30 (Vasotec Inj) 1.25 mg Q6H PRN IV PUSH 09/26/16 15:30 Nystatin 1 applic 1 applic Q12HR TOPICAL 09/26/16 16:00 09/30/16 08:08 (Zosyn 3.375 Gm Premix) 50 ml @ 200 mls/hr Q6H IV 09/27/16 14:00 09/30/16 07:58 Pantoprazole Sodium 40 mg 40 mg Q24H IV PUSH 09/27/16 15:00 09/29/16 15:03 (Zithromax Inj/ NS 250 ml Inj) 250 ml @ 250 mls/hr Q24H IV 09/28/16 09:00 09/30/16 08:05 (Vitamin D3) 1,000 units DAILY PO 09/28/16 11:00 09/30/16 08:00 Aspirin 81 mg 81 mg DAILY PO 09/28/16 14:00 09/30/16 08:00 (D5W-1/2 NS 1000 ml Inj) 1,000 ml @ 100 mls/hr Q10H IV 09/29/16 13:45 09/30/16 09:44 (Cardizem) 45 mg Q6HR PO 09/30/16 12:00 (Pill Splitter) 1 ea UNSCH PRN OTHER 09/30/16 09:45 A/P Assessment and Plan Cholelithiasis: Given the patient's recent bout of atrial fib and imaging suggestive of pneumonia, surgical intervention of cholelithiasis is not indicated at this time. The patient is aware that surgery will not happen until she is well. Although the patient has not had atrial fib following discontinuation of cardizem, CXR continues to demonstrate a left basilar infiltrate and a possible small right-sided effusion. Pneumonia: Continue antibiotic treatment and serial imaging. Atrial fibrillation: Consider following patient closely for recurrence while Cardizem is not in use. Altered mental status: Due to heavy sedation, Ativan will be withheld. If signs of delirium arise, especially at night, the patient should be reoriented and reassured. Interactions with family members should be encouraged. Continue treatment of underlying cause, which is likely the pneumonia. Encourage ambulation. Once the pneumonia is resolved and the patient feels well, the option for surgical treatment will be revisited. For now, continue antibiotics. NOTE FOR SURGICAL ATTENDING, DR. JOE HERRMANN I agree with above assessment and plan. The exam, history, and the medical decision-making described in the above note were completed with the assistance of the mid-level provider. I reviewed and agree with the findings presented. I attest that I had a [id number] encounter with the patient on the same day, and personally performed and documented my assessment and findings in the medical record. The following services were provided during this hospital visit: Chart data review, vital sign assessments/reviewing monitor data Review of consultations notes if present. Medication orders/review and/or management Ordering and/or reviewing lab tests Ordering and/or interpreting/reviewing x-rays and/or diagnostic studies Care of the patient and discussion of the patient with the care team Documentation time To help prompt me to consider important information that might be impacting today's encounter and assessment, information from prior notes written by myself or my colleagues may have been "brought forward/copy and pasted" into today's note. Sharifa Pisano Sep 30, 2016 14:30 Joe Herrmann MD Sep 30, 2016 14:34
[2016-09-30] MEDS: DEXT 5%-NACL 0.45% 1000 ML INJ 1,000 ML IV SCH (15:34)
[2016-09-30 15:51] LABS: PROTHROMBIN TIME - PATIENT 10.6 SEC (9.8-11.6)
[2016-09-30 15:52] LABS: BLOOD GAS BASE EXCESS -0.9 mmol/L (-2-2); BLOOD GAS CARBOXYHEMOGLOBIN 1.4 % (0-4); BLOOD GAS HCO3 24 mmol/L (22-26); BLOOD GAS O2 HGB SATURATION 92 % (90-100); BLOOD GAS OXYGEN CONTENT 15.1 Vol % (12.0-20.0); BLOOD GAS PCO2 46 mmHg (38-42); BLOOD GAS PO2 69 mmHg (61-120); BLOOD GAS TOTAL HGB 11.7 G/DL (12.0-16.0); CRITICAL VALUE NO; FIO2 34 %; LITER FLOW 3.5 L/M; OXYGEN DEVICE NASAL CANNULA; TEMP CORR TO 98.6
[2016-09-30 15:53] LABS: DRAW SITE LT RADIAL; NUMBER OF ARTERIAL PUNCTURES 1; STAT NO; ULNAR PULSE PRESENT
[2016-10-01] VITALS (31 sets, daily range): BP systolic 103–182; BP diastolic 57–72; PULSE 56–92; RESP 16–20; TEMP 97.5–99.2; O2SAT 89–96
[2016-10-01] MEDS: LORazepam 1 MG TAB PO PRN (01:38)
[2016-10-01] MEDS: PIPERACIL-TAZO 3.375 GM PREMIX 50 ML IV SCH ×4 (01:38→20:13)
[2016-10-01 05:00] LABS: HEMATOCRIT 26.3 % (35.0-46.0); MEAN CELL VOLUME 91.4 FL (80.0-100.0); MEAN CORPUSCULAR HEMOGLOBIN 29.7 PG (27.0-34.0); MEAN CORPUSCULAR HGB CONC 32.5 % (32.0-36.0); PLATELET COUNT 193 TH/MM3 (150-450); RED BLOOD COUNT 2.88 MIL/MM3 (4.00-5.30); RED CELL DISTRIBUTION WIDTH 12.9 % (11.6-17.2); REVIEW FLAG FINAL
[2016-10-01 05:44] LABS: BICARBONATE 26.7 MEQ/L (21.0-32.0); MAGNESIUM 1.8 MG/DL (1.5-2.5); POTASSIUM 3.2 MEQ/L (3.5-5.1)
[2016-10-01] MEDS: HEPARIN SODIUM - SQ 10,000 UNITS/ML VIAL SQ SCH ×3 (05:51→21:34)
[2016-10-01] MEDS: DILTIAZEM HCL 30 MG TAB PO SCH ×5 (05:55→23:35)
[2016-10-01] MEDS ORDERED: POTASSIUM CHLORIDE INJ 30 MEQ in DEXT 5%-NACL 0.9% 1000 ML INJ 1,000 ML IV SCH (09:15)
--- NOTE | 2016-10-01 09:18 | HHI.PR ---
Subjective Remarks The patient was resting in bed. She said she wanted to go walking. Family was at the bedside. They questions about when the surgery would be. The patient ate her breakfast. She has not had a bowel movement. Discussed with nursing. Objective Vitals Vital Signs Date Time Temp Pulse Resp B/P Pulse Ox O2 Delivery O2 Flow Rate FiO2 10/01/16 07:00 62 10/01/16 06:00 74 10/01/16 05:00 56 10/01/16 04:28 64 18 103/58 96 10/01/16 04:00 62 10/01/16 03:00 71 10/01/16 02:00 70 10/01/16 01:00 74 10/01/16 00:00 70 09/30/16 23:48 78 18 147/63 93 09/30/16 23:00 72 09/30/16 22:00 72 09/30/16 21:00 72 09/30/16 20:32 93 Nasal Cannula 3.00 09/30/16 20:00 78 09/30/16 19:30 98.6 75 18 118/68 94 09/30/16 19:00 73 09/30/16 18:00 76 09/30/16 17:00 71 09/30/16 16:00 72 09/30/16 15:00 98.1 79 22 123/58 96 09/30/16 15:00 65 09/30/16 14:00 68 09/30/16 13:00 62 09/30/16 12:00 66 09/30/16 11:49 95 Nasal Cannula 3.50 09/30/16 11:00 98.6 71 12 107/60 95 09/30/16 11:00 61 09/30/16 10:00 66 I/O 09/30/16 09/30/16 09/30/16 10/01/16 10/01/16 10/01/16 07:00 15:00 23:00 07:00 15:00 23:00 Intake Total 520 ml 1240 ml Output Total 300 ml 400 ml Balance 220 ml 840 ml Intake Oral 320 ml 240 ml IV Total 200 ml 1000 ml Output Urine Total 300 ml 400 ml # Bowel Movements 0 0 Result Diagram: 10/01/16 0404 10/01/16 0404 Imaging Last Impressions Renal Ultrasound 09/29/16 0000 Signed Impressions: Service Date/Time: Thursday, September 29, 2016 16:49 - CONCLUSION: 1. Atrophic kidneys. Small bilateral cysts. No hydronephrosis. Joe Torrez MD Chest X-Ray 09/29/16 0000 Signed Impressions: Service Date/Time: Thursday, September 29, 2016 15:36 - CONCLUSION: 1. Mild basilar airspace disease similar to September 28. Trace pleural fluid. Joe Torrez MD Myocardial Perfusion Scan [facility] [place] Med 09/27/16 0600 Signed Impressions: Service Date/Time: September 10:16 - CONCLUSION: 1. No fixed or reversible perfusion defect is identified. 2. Normal left ventricle wall motion and ejection fraction. RISK CATEGORY: Low (<1%% Annual Mortality Rate) Esdras Hunt MD Abdomen/Pelvis CT 09/26/16 0925 Signed Impressions: Service Date/Time: Monday, September 26, 2016 10:02 - CONCLUSION: 1. Small hiatal hernia. 2. Hepatic steatosis. 3. Cholelithiasis. There is mild gallbladder wall thickening and gallbladder distention noted. The possibility of cholecystitis should be entertained. 4. Diverticulosis. Butch Watson MD Gall Bladder Ultrasound 09/26/16 0000 Signed Impressions: Service Date/Time: Monday, September 26, 2016 13:37 - CONCLUSION: 1. Cholelithiasis with gallbladder wall thickening. However, sonographic Mandujano's sign is negative. There are not definitive findings to diagnose acute cholecystitis by ultrasound. HIDA scan can help evaluate for cystic duct obstruction, if needed. 2. Hepatic steatosis. Esdras Hunt MD Chest CT 09/26/16 0000 Signed Impressions: Service Date/Time: Monday, September 26, 2016 17:14 - CONCLUSION: No acute cardiopulmonary process. Subcentimeter nodules along the right interlobar fissure consistent with small lymph nodes. No evidence of suspicious pulmonary mass Distended gallbladder with wall thickening. Abdelrahman Hernandez MD Objective Remarks GENERAL: This is a well-nourished, well-developed patient, in no apparent distress. SKIN: No rashes, ecchymoses or lesions. Cool and dry. HEAD: Atraumatic. Normocephalic. No temporal or scalp tenderness. EYES: Pupils equal round and reactive. Extraocular motions intact. No scleral icterus. No injection or drainage. ENT: Nose without bleeding, purulent drainage or septal hematoma. Throat without erythema, tonsillar hypertrophy or exudate. Uvula midline. Airway patent. NECK: Trachea midline. No JVD or lymphadenopathy. Supple, nontender, no meningeal signs. CARDIOVASCULAR: Irregularly irregular without murmurs, gallops, or rubs. RESPIRATORY: Clear to auscultation. Breath sounds equal bilaterally. No wheezes , rales, or rhonchi. GASTROINTESTINAL: Abdomen soft, generalized tenderness to palpation, worse in the right upper quadrant, nondistended. No hepato-splenomegaly, or palpable masses. No guarding. MUSCULOSKELETAL: Extremities without clubbing, cyanosis, or edema. No joint tenderness, effusion, or edema noted. NEUROLOGICAL: Lethargic. Cranial nerves II through XII intact. Motor and sensory grossly within normal limits. Five out of 5 muscle strength in all muscle groups. Normal speech. PSYCH: Calm. Medications and IVs Current Medications Medications (Trade) Dose Ordered Sig/Cristian Route Start Time Stop Time Status Last Admin (Pravachol) 20 mg DAILY PO 09/27/16 09:00 09/30/16 08:00 (NS Flush) 2 ml UNSCH PRN IV FLUSH 09/26/16 13:30 (NS Flush) 2 ml BID IV FLUSH 09/26/16 21:00 09/30/16 08:01 (Tylenol) 650 mg Q4H PRN PO 09/26/16 13:30 (Zofran Inj) 4 mg Q6H PRN IVP 09/26/16 13:30 09/27/16 14:08 (Colace) 100 mg Q12HR PO 09/26/16 14:00 09/30/16 21:25 (Senokot) 17.2 mg Q12H PRN PO 09/26/16 13:30 10/01/16 13:30 (Heparin Inj) 5,000 units Q8HR SQ 09/26/16 14:00 10/01/16 05:51 (Tylenol) 650 mg Q6H PRN PO 09/26/16 13:30 09/26/16 14:40 (Narcan Inj) 0.4 mg UNSCH PRN IV 09/26/16 13:30 (Norvasc) 5 mg DAILY PO 09/26/16 16:00 Hold 09/27/16 08:22 (Romazicon Inj) 0.2 mg Q1M PRN IV PUSH 09/26/16 15:30 (Ativan) 1 mg Q4H PRN PO 09/26/16 15:30 10/01/16 01:38 (Ativan) 2 mg Q2H PRN PO 09/26/16 15:30 (Ativan Inj) 2 mg Q1H PRN IV PUSH 09/26/16 15:30 (Ativan Inj) 2 mg Q15M PRN IV PUSH 09/26/16 15:30 (Catapres) 0.1 mg Q6H PRN PO 09/26/16 15:30 (Vasotec Inj) 1.25 mg Q6H PRN IV PUSH 09/26/16 15:30 Nystatin 1 applic 1 applic Q12HR TOPICAL 09/26/16 16:00 09/30/16 21:25 Piperacillin Sod/ Tazobactam Sod 50 ml @ 200 mls/hr Q6H IV 09/27/16 14:00 10/01/16 07:41 (Zithromax Inj/ NS 250 ml Inj) 250 ml @ 250 mls/hr Q24H IV 09/28/16 09:00 09/30/16 08:05 (Vitamin D3) 1,000 units DAILY PO 09/28/16 11:00 09/30/16 08:00 (Ecotrin Ec) 81 mg DAILY PO 09/28/16 14:00 Hold 09/30/16 08:00 (Cardizem) 45 mg Q6HR PO 09/30/16 12:00 10/01/16 05:55 (Pill Splitter) 1 ea UNSCH PRN OTHER 09/30/16 09:45 Pantoprazole Sodium 20 mg 20 mg DAILY PO 10/01/16 09:00 (D5-1/2 NS + KCl 40 Meq Inj) 1,000 ml @ 100 mls/hr Q10H IV 10/01/16 09:15 10/01/16 19:14 UNV (Senokot) 17.2 mg DAILY PO 10/01/16 09:03 UNV (Miralax) 17 gm DAILY PO 10/01/16 09:15 UNV A/P Assessment and Plan Acute cholecystitis/ Cholangitis CT of the abdomen revealed questionable cholecystitis. Right upper quadrant ultrasound also with cholelithiasis and gallbladder wall thickening. LFTs unremarkable. 09/27 pt with worsening RUQ abdominal pain and nausea as well as marked leukocytosis. Appreciate surgical consult. - Pain control and antiemetics as needed. - PPI. - started Zosyn as there is concern for cholangitis. - blood cultures x 2. NGTD. - general surgery considering surgery this week. A fib New onset. HR currently controlled. Echo with normal EF. TSH WNL. - d/c diltiazem gtt. - reduce Cardizem to 45 mg Q6H. Stable. - start ASA. Hold off on full anticoagulation considering alcohol abuse, fall risk and concern for noncompliance. Chest pain/ Right hilar mass The patient presented with right-sided chest pain and chest x-ray cannot exclude a right hilar mass. EKG with sinus bradycardia and right bundle branch block. Trop peaked at 0.28. CT chest with contrast: No acute cardiopulmonary process; Subcentimeter nodules along the right interlobar fissure consistent with small lymph nodes; No evidence of suspicious pulmonary mass; Distended gallbladder with wall thickening. Stress test negative. - chest pain likely s/t above. Pneumonia Repeat CXR with bibasilar infiltrates. - add azithromycin. Continue Zosyn. - nebs as needed. - incentive spirometry. Daily alcohol use The patient endorses 2-3 large glasses of wine daily. She is somewhat tremulous. 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 No evidence of withdrawal at this point. - [facility] protocol. - Cessation instruction. - PT/ OT evals. ST cognitive eval requested. - folate, thiamine, MVI. HTN Blood pressure improved. - continue Cardizem. - Clonidine and Vasotec as needed. Acute renal failure Possibly secondary to decreased by mouth intake. FeNa consistent with prerenal etiology. Renal US: Atrophic kidneys; Small bilateral cysts; No hydronephrosis. Improved. - fluids. - Canales to monitor Is and Os. PPx: Heparin. Discharge Planning Awaiting clinical improvement, possible surgery, then likely SNF. Leonard Gibbs DO Oct 01, 2016 09:18
[2016-10-01] MEDS: PRAVASTATIN SOD 20 MG TAB PO SCH (09:33)
[2016-10-01] MEDS: CHOLECALCIFEROL (VIT D3) 1000 UNIT TAB PO SCH (09:33)
[2016-10-01] MEDS: DOCUSATE SODIUM 100 MG CAP PO SCH ×2 (09:33→21:00)
[2016-10-01] MEDS: SODIUM CHLORIDE 0.9% FLUSH 10 ML FLUSH IV FLUSH SCH ×2 (09:34→21:00)
[2016-10-01] MEDS: NYSTATIN 100,000 UNIT/GM CREAM 15 GM TOPICAL SCH ×2 (09:34→21:34)
[2016-10-01] MEDS: PANTOPRAZOLE SOD 20 MG DELAYED RELEASE TAB PO SCH (09:34)
[2016-10-01] MEDS: AZITHROMYCIN INJ 500 MG in SODIUM CHLOR 0.9% 250 ML INJ 250 ML IV SCH (09:34)
[2016-10-01] MEDS: SENNOSIDES 8.6 MG TAB PO SCH (10:30)
[2016-10-01] MEDS ORDERED: BISACODYL 10 MG SUPP RECTAL ONE (10:30)
[2016-10-01] MEDS: POLYETHYLENE GLYCOL 17 GM PKG PO SCH (10:30)
--- NOTE | 2016-10-01 10:38 | HHI.PR ---
Subjective Subjective Notes DAILY PROGRESS NOTE FOR SURGICAL ATTENDING, DR. JOE HERRMANN More alert today at bedside She wants to go ahead and proceed with surgery Objective Vitals/I&O Vital Signs Date Time Temp Pulse Resp B/P Pulse Ox O2 Delivery O2 Flow Rate FiO2 10/01/16 07:00 62 10/01/16 04:28 18 103/58 96 09/30/16 20:32 Nasal Cannula 3.00 09/30/16 19:30 98.6 Labs Laboratory Tests Test 09/30/16 09/30/16 10/01/16 15:25 15:35 04:04 Prothrombin Time 10.6 Prothromb Time International 1.0 Ratio Lactic Acid Level 0.5 Ammonia LESS THAN 10 Blood Gas Puncture Site LT RADIAL Blood Gas Patient Temperature 98.6 Blood Gas HCO3 24 Blood Gas Base Excess -0.9 Blood Gas Oxygen Saturation 92 Arterial Blood pH 7.34 Arterial Blood Partial 46 Pressure CO2 Arterial Blood Partial 69 Pressure O2 Arterial Blood Oxygen Content 15.1 Arterial Blood 1.4 Carboxyhemoglobin Arterial Blood Methemoglobin 1.0 Blood Gas Hemoglobin 11.7 Oxygen Delivery Device NASAL CANNULA Blood Gas Liter Flow 3.5 Blood Gas Inspired Oxygen 34 White Blood Count 12.0 Red Blood Count 2.88 Hemoglobin 8.5 Hematocrit 26.3 Mean Corpuscular Volume 91.4 Mean Corpuscular Hemoglobin 29.7 Mean Corpuscular Hemoglobin 32.5 Concent Red Cell Distribution Width 12.9 Platelet Count 193 Mean Platelet Volume 9.0 Sodium Level 144 Potassium Level 3.2 Chloride Level 109 Carbon Dioxide Level 26.7 Anion Gap 8 Blood Urea Nitrogen 25 Creatinine 1.12 Estimat Glomerular Filtration 46 Rate Random Glucose 119 Calcium Level 8.1 Magnesium Level 1.8 Date/Time Procedure Status Source Growth 09/27/16 18:10 Urine Culture - Final Complete Urine Clean Catch 50-100,000 CFU/ML MIXED NERI... 09/27/16 15:30 Aerobic Blood Culture - Preliminary Resulted Blood Peripheral NO GROWTH IN 3 DAYS 09/27/16 15:30 Anaerobic Blood Culture - Preliminary Resulted Blood Peripheral NO GROWTH IN 3 DAYS Radiology Last Impressions Renal Ultrasound 09/29/16 0000 Signed Impressions: Service Date/Time: Thursday, September 29, 2016 16:49 - CONCLUSION: 1. Atrophic kidneys. Small bilateral cysts. No hydronephrosis. Joe Torrez MD Chest X-Ray 09/29/16 0000 Signed Impressions: Service Date/Time: Thursday, September 29, 2016 15:36 - CONCLUSION: 1. Mild basilar airspace disease similar to September 28. Trace pleural fluid. Joe Torrez MD Myocardial Perfusion Scan Nuc Med 09/27/16 0600 Signed Impressions: Service Date/Time: September 10:16 - CONCLUSION: 1. No fixed or reversible perfusion defect is identified. 2. Normal left ventricle wall motion and ejection fraction. RISK CATEGORY: Low (<1%% Annual Mortality Rate) Esdras Hunt MD Abdomen/Pelvis CT 09/26/16 0925 Signed Impressions: Service Date/Time: Monday, September 26, 2016 10:02 - CONCLUSION: 1. Small hiatal hernia. 2. Hepatic steatosis. 3. Cholelithiasis. There is mild gallbladder wall thickening and gallbladder distention noted. The possibility of cholecystitis should be entertained. 4. Diverticulosis. Butch Watson MD Gall Bladder Ultrasound 09/26/16 0000 Signed Impressions: Service Date/Time: Monday, September 26, 2016 13:37 - CONCLUSION: 1. Cholelithiasis with gallbladder wall thickening. However, sonographic Mandujano's sign is negative. There are not definitive findings to diagnose acute cholecystitis by ultrasound. HIDA scan can help evaluate for cystic duct obstruction, if needed. 2. Hepatic steatosis. Esdras Hunt MD Chest CT 09/26/16 0000 Signed Impressions: Service Date/Time: Monday, September 26, 2016 17:14 - CONCLUSION: No acute cardiopulmonary process. Subcentimeter nodules along the right interlobar fissure consistent with small lymph nodes. No evidence of suspicious pulmonary mass Distended gallbladder with wall thickening. Abdelrahman Hernandez MD Cardiovascular: Regular Lungs: Upper airway course sound Abdomen: Other (mild soreness right upper quadrant) Extremities: Perfused Narrative Exam Patient on oxygen More alert Abdomen right upper quadrant soreness Canales in place Physical therapy to ambulate today A/P Problem List: (1) Cholecystitis (2) A-fib (3) Elevated troponin (4) Umbilical hernia (5) EtOH dependence (6) Gallstones (7) Abnormal CT of the abdomen (8) RUQ abdominal pain (9) UTI (urinary tract infection) (10) Pneumonia (11) Confusion state (12) Abnormality of lung on CXR (13) Abnormal finding on EKG Assessment and Plan 85-year-old female with cholelithiasis cholecystitis Had an episode of atrial fibrillation last night Has a UTI and pneumonia Discussed this with the at the bedside Laparoscopic cholecystectomy umbilical hernia repair Attending Statement 85-year-old female with gallstones which are symptomatic She had a out of atrial fibrillation that is under control at this time. She's been treated for pneumonia and a UTI. She is more awake and alert her renal functions improved. I will tentatively schedule for Saturday for laparoscopic cholecystectomy possible open I discussed this with the and the patient appeared to understand and are happy to proceed as soon as possible NOTE FOR SURGICAL ATTENDING, DR. JOE HERRMANN I attest that I had a [id number] encounter with the patient on the same day, and personally performed and documented my assessment and findings in the medical record. The following services were provided during this hospital visit: Chart data review, vital sign assessments/reviewing monitor data Review of consultations notes if present. Medication orders/review and/or management Ordering and/or reviewing lab tests Ordering and/or interpreting/reviewing x-rays and/or diagnostic studies Care of the patient and discussion of the patient with the care team Documentation time To help prompt me to consider important information that might be impacting today's encounter and assessment, information from prior notes written by myself or my colleagues may have been "brought forward/copy and pasted" into today's note. Problem Qualifiers (1) Umbilical hernia: Qualified Code: K42.9 - Umbilical hernia without obstruction and without gangrene Joe Herrmann MD Oct 01, 2016 10:38
[2016-10-01] MEDS ORDERED: D5-1/2 NS + KCL 40 MEQ INJ 1,000 ML IV SCH (11:00)
[2016-10-01] MEDS: RESP: ALBUTEROL 2.5 MG/IPRATROPIUM 0.5 MG NEB (PRN) NEB ×2 (17:46→23:23)
[2016-10-01] MEDS ORDERED: INSULIN HUMAN REGULAR 1,000 UNITS/10 ML VIAL SQ PRN (22:45)
[2016-10-01] MEDS ORDERED: METOPROLOL TARTRATE 25 MG TAB PO PRN (22:45)
[2016-10-01] MEDS ORDERED: SODIUM CHLORID 0.9% 500 ML IV PRN (22:45)
[2016-10-01] MEDS ORDERED: POVIDONE IODINE 5% (ANTISEPSIS KIT) 4 APPLICATIONS EACH NARE PRN (22:45)
[2016-10-01] MEDS ORDERED: CHLORHEXIDINE GLUCONATE 2 % 1 PACK (2 CLOTHS) TOPICAL PRN (22:45)
[2016-10-01] MEDS ORDERED: LACTATED RINGER'S 1000 ML IV PRN (22:45)
[2016-10-02] VITALS (27 sets, daily range): BP systolic 134–182; BP diastolic 66–72; PULSE 66–109; RESP 16–20; TEMP 97.5–99.6; O2SAT 89–99
[2016-10-02] MEDS: PIPERACIL-TAZO 3.375 GM PREMIX 50 ML IV SCH ×4 (02:12→20:00)
[2016-10-02 06:10] LABS: MEAN CELL VOLUME 90.5 FL (80.0-100.0); MEAN CORPUSCULAR HEMOGLOBIN 29.8 PG (27.0-34.0); MEAN CORPUSCULAR HGB CONC 32.9 % (32.0-36.0); PLATELET COUNT 238 TH/MM3 (150-450); RED BLOOD COUNT 3.43 MIL/MM3 (4.00-5.30); REVIEW FLAG FINAL; WHITE BLOOD COUNT 10.4 TH/MM3 (4.0-11.0)
[2016-10-02] MEDS: DILTIAZEM HCL 30 MG TAB PO SCH ×3 (06:25→17:11)
[2016-10-02 06:50] LABS: BICARBONATE 28.1 MEQ/L (21.0-32.0); MAGNESIUM 1.7 MG/DL (1.5-2.5); POTASSIUM 3.2 MEQ/L (3.5-5.1)
[2016-10-02] MEDS: SODIUM CHLORIDE 0.9% FLUSH 10 ML FLUSH IV FLUSH SCH ×2 (08:42→21:00)
[2016-10-02] MEDS: PANTOPRAZOLE SOD 20 MG DELAYED RELEASE TAB PO SCH (08:45)
[2016-10-02] MEDS: PRAVASTATIN SOD 20 MG TAB PO SCH (08:45)
[2016-10-02] MEDS: DOCUSATE SODIUM 100 MG CAP PO SCH ×2 (08:45→21:00)
[2016-10-02] MEDS: CHOLECALCIFEROL (VIT D3) 1000 UNIT TAB PO SCH (08:45)
[2016-10-02] MEDS: AZITHROMYCIN INJ 500 MG in SODIUM CHLOR 0.9% 250 ML INJ 250 ML IV SCH (08:46)
[2016-10-02] MEDS: POLYETHYLENE GLYCOL 17 GM PKG PO SCH (08:46)
[2016-10-02] MEDS: SENNOSIDES 8.6 MG TAB PO SCH (08:46)
[2016-10-02] MEDS: NYSTATIN 100,000 UNIT/GM CREAM 15 GM TOPICAL SCH ×2 (08:53→21:00)
[2016-10-02] MEDS ORDERED: POTASSIUM CHLORIDE 25 MEQ EFFERVESCENT TAB PO ONE (10:15)
--- NOTE | 2016-10-02 10:15 | HHI.PR ---
Subjective Remarks The patient was resting in bed comfortably. She said that she was anticipating surgery later on today. She had some pain in the right upper quadrant. She said she worked with physical therapy. Discussed with nursing. Objective Vitals Vital Signs Date Time Temp Pulse Resp B/P Pulse Ox O2 Delivery O2 Flow Rate FiO2 10/02/16 09:01 70 10/02/16 08:00 71 10/02/16 08:00 98.4 71 16 134/71 95 10/02/16 07:36 66 10/02/16 06:00 70 10/02/16 05:00 80 10/02/16 04:21 89 21 10/02/16 04:00 77 10/02/16 03:00 89 10/02/16 03:00 98.4 79 16 146/66 95 10/02/16 02:00 80 10/02/16 01:00 81 10/02/16 00:00 80 10/01/16 23:30 98.3 74 16 128/63 94 10/01/16 23:00 74 10/01/16 22:00 82 10/01/16 21:06 89 21 10/01/16 20:00 74 10/01/16 19:30 99.2 73 16 138/60 96 10/01/16 19:00 80 10/01/16 18:00 74 10/01/16 17:00 74 10/01/16 16:00 62 10/01/16 15:30 98.2 67 20 124/57 94 10/01/16 15:00 62 10/01/16 14:00 66 10/01/16 13:00 62 10/01/16 12:00 68 10/01/16 11:00 98.2 70 20 122/63 96 10/01/16 11:00 78 10/01/16 10:57 94 Nasal Cannula 3.00 I/O 10/01/16 10/01/16 10/01/16 10/02/16 10/02/16 10/02/16 07:00 15:00 23:00 07:00 15:00 23:00 Intake Total 1240 ml 1060 ml 640 ml Output Total 400 ml 800 ml 950 ml Balance 840 ml 260 ml -310 ml Intake Oral 240 ml 360 ml 240 ml IV Total 1000 ml 700 ml 400 ml Output Urine Total 400 ml 800 ml 950 ml # Bowel Movements 0 1 2 Result Diagram: 10/02/16 0540 10/02/16 0540 Imaging Last Impressions Renal Ultrasound 09/29/16 0000 Signed Impressions: Service Date/Time: Thursday, September 29, 2016 16:49 - CONCLUSION: 1. Atrophic kidneys. Small bilateral cysts. No hydronephrosis. Joe Torrez MD Chest X-Ray 09/29/16 0000 Signed Impressions: Service Date/Time: Thursday, September 29, 2016 15:36 - CONCLUSION: 1. Mild basilar airspace disease similar to September 28. Trace pleural fluid. Joe Torrez MD Myocardial Perfusion Scan Nuc Med 09/27/16 0600 Signed Impressions: Service Date/Time: September 10:16 - CONCLUSION: 1. No fixed or reversible perfusion defect is identified. 2. Normal left ventricle wall motion and ejection fraction. RISK CATEGORY: Low (<1%% Annual Mortality Rate) Esdras Hunt MD Abdomen/Pelvis CT 09/26/16 0925 Signed Impressions: Service Date/Time: Monday, September 26, 2016 10:02 - CONCLUSION: 1. Small hiatal hernia. 2. Hepatic steatosis. 3. Cholelithiasis. There is mild gallbladder wall thickening and gallbladder distention noted. The possibility of cholecystitis should be entertained. 4. Diverticulosis. Butch Watson MD Gall Bladder Ultrasound 09/26/16 0000 Signed Impressions: Service Date/Time: Monday, September 26, 2016 13:37 - CONCLUSION: 1. Cholelithiasis with gallbladder wall thickening. However, sonographic Mandujano's sign is negative. There are not definitive findings to diagnose acute cholecystitis by ultrasound. HIDA scan can help evaluate for cystic duct obstruction, if needed. 2. Hepatic steatosis. Esdras Hunt MD Chest CT 09/26/16 0000 Signed Impressions: Service Date/Time: Monday, September 26, 2016 17:14 - CONCLUSION: No acute cardiopulmonary process. Subcentimeter nodules along the right interlobar fissure consistent with small lymph nodes. No evidence of suspicious pulmonary mass Distended gallbladder with wall thickening. Abdelrahman Hernandez MD Objective Remarks GENERAL: This is a well-nourished, well-developed patient, in no apparent distress. SKIN: No rashes, ecchymoses or lesions. Cool and dry. HEAD: Atraumatic. Normocephalic. No temporal or scalp tenderness. EYES: Pupils equal round and reactive. Extraocular motions intact. No scleral icterus. No injection or drainage. ENT: Nose without bleeding, purulent drainage or septal hematoma. Throat without erythema, tonsillar hypertrophy or exudate. Uvula midline. Airway patent. NECK: Trachea midline. No JVD or lymphadenopathy. Supple, nontender, no meningeal signs. CARDIOVASCULAR: Irregularly irregular without murmurs, gallops, or rubs. RESPIRATORY: Clear to auscultation. Breath sounds equal bilaterally. No wheezes , rales, or rhonchi. GASTROINTESTINAL: Abdomen soft, nontender, nondistended. No hepato-splenomegaly , or palpable masses. No guarding. MUSCULOSKELETAL: Extremities without clubbing, cyanosis, or edema. No joint tenderness, effusion, or edema noted. NEUROLOGICAL: Awake and alert. Cranial nerves II through XII intact. Motor and sensory grossly within normal limits. Five out of 5 muscle strength in all muscle groups. Normal speech. PSYCH: Calm. Medications and IVs Current Medications Medications (Trade) Dose Ordered Sig/Cristian Route Start Time Stop Time Status Last Admin (Pravachol) 20 mg DAILY PO 09/27/16 09:00 10/02/16 08:45 (NS Flush) 2 ml UNSCH PRN IV FLUSH 09/26/16 13:30 (NS Flush) 2 ml BID IV FLUSH 09/26/16 21:00 10/02/16 08:42 (Tylenol) 650 mg Q4H PRN PO 09/26/16 13:30 (Zofran Inj) 4 mg Q6H PRN IVP 09/26/16 13:30 09/27/16 14:08 (Colace) 100 mg Q12HR PO 09/26/16 14:00 10/01/16 09:33 (Heparin Inj) 5,000 units Q8HR SQ 09/26/16 14:00 Hold 10/01/16 21:34 (Tylenol) 650 mg Q6H PRN PO 09/26/16 13:30 09/26/16 14:40 (Narcan Inj) 0.4 mg UNSCH PRN IV 09/26/16 13:30 (Norvasc) 5 mg DAILY PO 09/26/16 16:00 Hold 09/27/16 08:22 (Romazicon Inj) 0.2 mg Q1M PRN IV PUSH 09/26/16 15:30 (Ativan Inj) 2 mg Q1H PRN IV PUSH 09/26/16 15:30 (Ativan Inj) 2 mg Q15M PRN IV PUSH 09/26/16 15:30 (Catapres) 0.1 mg Q6H PRN PO 09/26/16 15:30 (Vasotec Inj) 1.25 mg Q6H PRN IV PUSH 09/26/16 15:30 Nystatin 1 applic 1 applic Q12HR TOPICAL 09/26/16 16:00 10/02/16 08:53 Piperacillin Sod/ Tazobactam Sod 50 ml @ 200 mls/hr Q6H IV 09/27/16 14:00 10/02/16 08:42 (Zithromax Inj/ NS 250 ml Inj) 250 ml @ 250 mls/hr Q24H IV 09/28/16 09:00 10/02/16 08:46 (Vitamin D3) 1,000 units DAILY PO 09/28/16 11:00 10/02/16 08:45 (Ecotrin Ec) 81 mg DAILY PO 09/28/16 14:00 Hold 09/30/16 08:00 (Cardizem) 45 mg Q6HR PO 09/30/16 12:00 10/02/16 06:25 (Pill Splitter) 1 ea UNSCH PRN OTHER 09/30/16 09:45 (Protonix) 20 mg DAILY PO 10/01/16 09:00 10/02/16 08:45 (Senokot) 17.2 mg DAILY PO 10/01/16 10:30 Polyethylene Glycol 17 gm 17 gm DAILY PO 10/01/16 10:30 Lactated Ringer's 1,000 ml @ 30 mls/hr Q24H PRN IV 10/01/16 22:45 10/04/16 22:44 (NS 500 ml Inj) 500 ml @ 30 mls/hr [id number] PRN IV 10/01/16 22:45 10/04/16 22:44 (K-Lyte Cl Eff) 50 meq ONCE ONCE PO 10/02/16 10:15 10/02/16 10:16 UNV A/P Assessment and Plan Acute cholecystitis/ Cholangitis CT of the abdomen revealed questionable cholecystitis. Right upper quadrant ultrasound also with cholelithiasis and gallbladder wall thickening. LFTs unremarkable. 09/27 pt with worsening RUQ abdominal pain and nausea as well as marked leukocytosis. Appreciate surgical consult. - Pain control and antiemetics as needed. - PPI. - started Zosyn as there was concern for cholangitis. - blood cultures x 2. NGTD. - cholecystectomy scheduled 10/02. A fib New onset. HR currently controlled. Echo with normal EF. TSH WNL. - d/c diltiazem gtt. - reduce Cardizem to 45 mg Q6H. Stable. - start ASA. Hold off on full anticoagulation considering alcohol abuse, fall risk and concern for noncompliance. Chest pain/ Right hilar mass The patient presented with right-sided chest pain and chest x-ray cannot exclude a right hilar mass. EKG with sinus bradycardia and right bundle branch block. Trop peaked at 0.28. CT chest with contrast: No acute cardiopulmonary process; Subcentimeter nodules along the right interlobar fissure consistent with small lymph nodes; No evidence of suspicious pulmonary mass; Distended gallbladder with wall thickening. Stress test negative. - chest pain likely s/t above. Pneumonia Repeat CXR with bibasilar infiltrates. - added azithromycin. Continue Zosyn. Would d/c antibiotics on 10/04. - nebs as needed. - incentive spirometry. Daily alcohol use The patient endorses 2-3 large glasses of wine daily. She is somewhat tremulous. 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 No evidence of withdrawal at this point. - [facility] protocol. - Cessation instruction. - PT/ OT evals. ST cognitive eval requested. - folate, thiamine, MVI. HTN Blood pressure improved. - continue Cardizem. - Clonidine and Vasotec as needed. Acute renal failure Possibly secondary to decreased by mouth intake. FeNa consistent with prerenal etiology. Renal US: Atrophic kidneys; Small bilateral cysts; No hydronephrosis. Improved. - fluids. - [place]ales to monitor Is and Os. PPx: Heparin. Discharge Planning Awaiting surgery then d/c in 1-2 days. Leonard Gibbs DO Oct 02, 2016 10:15
--- NOTE | 2016-10-02 10:16 | HHI.DCPOC ---
Discharge Care Plan Diagnosis: (1) Pneumonia (2) A-fib (3) Confusion state (4) RUQ abdominal pain (5) Gallstones (6) EtOH dependence (7) Cholecystitis Goals to Promote Your Health * To prevent worsening of your condition and complications * To maintain your health at the optimal level Directions to Meet Your Goals Take your medications as prescribed Follow your dietary instruction Follow activity as directed Keep your appointments as scheduled Take your immunizations and boosters as scheduled If your symptoms worsen call your PCP, if no PCP go to Urgent Care Center or Emergency Room Smoking is Dangerous to Your Health. Avoid second hand smoke Call the 24-hour hour crisis hotline for domestic abuse at Leonard Gibbs DO Oct 02, 2016 10:16
--- NOTE | 2016-10-02 10:17 | HHI.FF ---
Face to Face Verification Diagnosis: (1) Pneumonia (2) A-fib (3) Confusion state (4) RUQ abdominal pain (5) Gallstones (6) EtOH dependence (7) Cholecystitis Physical Therapy Order: Evaluate and Treat, Improve ambulation, Strength and gait training Occupational Therapy Order: Evaluate and Treat, Improve ADL, Gross motor coordination, Fine motor coordination Speech Therapy Order: To Improve: Cognitive skills Home Health Nursing Order: Medical education Signs/symptoms of disease process Medication education-adverse effect Wound care and dressing changes Nursing assessment with vital signs I have seen patient Luz Love on 10/02/16. My clinical findings support the need for the requested home health care services because: Patient has SOB Deconditioned w/ increased weakness Med compliance is questionable Limited ability to care for self Need for psychosocial assistance Impaired cognition/judgement High risk of falls I certify that my clinical findings support that this patient is homebound because: Post-op weakness Impaired cognitive ability/safety Unsteady gait/balance Unsafe to leave home unassisted Need for psychosocial assistance Leonard Gibbs DO Oct 02, 2016 10:17
[2016-10-02] MEDS ORDERED: ceFAZolin INJ 1,000 MG VIAL ONE (11:56)
[2016-10-02] MEDS ORDERED: BUPIVACAINE/EPINEPHRINE 0.25% PF 30 ML VIAL ONE (11:56)
[2016-10-02] MEDS ORDERED: ONDANSETRON HCL 4 MG/2 ML VIAL IV PUSH ONE (12:00)
[2016-10-02] MEDS ORDERED: PROPOFOL 200 MG/20 ML AMP IV ONE (12:00)
[2016-10-02] MEDS ORDERED: NEOSTIGMINE 3 MG/3 ML SYR IV ONE (12:00)
--- NOTE | 2016-10-02 14:13 | HHI.PR ---
cc: Joe Herrmann MD Immediate Post Op Note Procedure Date: Oct 02, 2016 Pre Op Diagnosis: (1) Gallstones (2) RUQ abdominal pain (3) A-fib (4) Pneumonia (5) Cholecystitis (6) Umbilical hernia Post Op Diagnosis: (1) Cholecystitis (2) Acute gangrenous cholecystitis (3) Umbilical hernia (4) Gallstones (5) RUQ abdominal pain Surgeon: Joe Herrmann Traffic Operations Engineer(s): Please refer to OR record Procedure: Laparoscopic cholecystectomy and umbilical hernia repair Findings: Gangrenous cholecystitis Complications: None Specimen(s) removed: Gallbladder and hernia sac Estimated blood loss: 50 cc Anesthesia: General Drains: CAROL IVF Patient to: PACU Patient Condition: Good Implant/Devices: SEE IMPLANT LOG (if applicable) Date/Time of Procedure: SEE SURGICAL CARE RECORD Joe Herrmann MD Oct 02, 2016 14:13
[2016-10-02] MEDS ORDERED: SUGAMMADEX SODIUM 200 MG/2 ML VIAL IV PUSH ONE ×2 (14:15)
[2016-10-02] MEDS: RESP: ALBUTEROL 2.5 MG/IPRATROPIUM 0.5 MG NEB (PRN) NEB ×2 (14:28→17:41)
[2016-10-02] MEDS ORDERED: DO NOT ADM ANY ANTICOAGULANT DRUGS PRN (14:48)
--- NOTE | 2016-10-02 16:03 | RADRPT ---
EXAM DATE/TIME: 10/02/2016 15:52 [facility] COMPARISON: CHEST SINGLE AP, September 29, 2016, 15:36. INDICATIONS : Short of breath post op. MEDICAL HISTORY : None. SURGICAL HISTORY : Cholecystectomy. ENCOUNTER: Initial ACUITY: 1 day PAIN SCORE: Non-responsive. LOCATION: Bilateral chest FINDINGS: There is a lesser degree of inspiration prior chest x-ray with associated crowding of bronchopulmonar y markings centrally. There is also consolidation at the left lung base with loss of delineation lef t hemidiaphragm. No blunting of the costophrenic angle right side. Heart size is stable. CONCLUSION: Submaximal inspiration. Subsegmental consolidation left lung base. Maldonado Danielson MD on October 02, 2016 at 16:01 Board Certified Radiologist. This report was verified electronically.
[2016-10-02] MEDS ORDERED: methylPREDNISolone SOD SUCC 125 MG/2 ML VIAL IV ONE (18:30)
[2016-10-02 19:32] LABS: BLOOD GAS BASE EXCESS 0.6 mmol/L (-2-2); BLOOD GAS CARBOXYHEMOGLOBIN 1.6 % (0-4); BLOOD GAS HCO3 24 mmol/L (22-26); BLOOD GAS O2 HGB SATURATION 92 % (90-100); BLOOD GAS OXYGEN CONTENT 13.4 Vol % (12.0-20.0); BLOOD GAS PCO2 35 mmHg (38-42); BLOOD GAS PO2 64 mmHg (61-120); BLOOD GAS TOTAL HGB 10.4 G/DL (12.0-16.0); CRITICAL VALUE NO; DRAW SITE LT RADIAL; LITER FLOW 3 L/M; NUMBER OF ARTERIAL PUNCTURES 1; OXYGEN DEVICE NASAL CANNULA; STAT YES; TEMP CORR TO 98.6; ULNAR PULSE PRESENT
[2016-10-02] MEDS: RESP: ALBUTEROL 2.5 MG/IPRATROPIUM 0.5 MG NEB (SCH) NEB (20:45)
[2016-10-03] VITALS (26 sets, daily range): BP systolic 113–130; BP diastolic 54–67; PULSE 54–87; RESP 14–20; TEMP 97.6–98.9; O2SAT 91–96
[2016-10-03] MEDS: methylPREDNISolone SOD SUCC 40 MG/1 ML VIAL IV PUSH SCH ×3 (00:33→13:09)
[2016-10-03] MEDS: DILTIAZEM HCL 30 MG TAB PO SCH ×4 (00:34→17:28)
[2016-10-03] MEDS: PIPERACIL-TAZO 3.375 GM PREMIX 50 ML IV SCH ×3 (02:04→13:09)
[2016-10-03 06:21] LABS: HEMATOCRIT 26.9 % (35.0-46.0); MEAN CELL VOLUME 89.9 FL (80.0-100.0); MEAN CORPUSCULAR HEMOGLOBIN 30.1 PG (27.0-34.0); MEAN CORPUSCULAR HGB CONC 33.5 % (32.0-36.0); PLATELET COUNT 242 TH/MM3 (150-450); RED BLOOD COUNT 2.99 MIL/MM3 (4.00-5.30); RED CELL DISTRIBUTION WIDTH 13.3 % (11.6-17.2); REVIEW FLAG FINAL; WHITE BLOOD COUNT 11.3 TH/MM3 (4.0-11.0)
[2016-10-03 06:42] LABS: BICARBONATE 30.8 MEQ/L (21.0-32.0); MAGNESIUM 1.8 MG/DL (1.5-2.5); POTASSIUM 3.9 MEQ/L (3.5-5.1)
[2016-10-03] MEDS: RESP: ALBUTEROL 2.5 MG/IPRATROPIUM 0.5 MG NEB (SCH) NEB ×3 (08:00→20:13)
[2016-10-03] MEDS: AZITHROMYCIN INJ 500 MG in SODIUM CHLOR 0.9% 250 ML INJ 250 ML IV SCH (08:13)
[2016-10-03] MEDS: POLYETHYLENE GLYCOL 17 GM PKG PO SCH (08:15)
[2016-10-03] MEDS: DOCUSATE SODIUM 100 MG CAP PO SCH ×2 (08:15→21:00)
[2016-10-03] MEDS: PRAVASTATIN SOD 20 MG TAB PO SCH (08:15)
[2016-10-03] MEDS: SENNOSIDES 8.6 MG TAB PO SCH (08:15)
[2016-10-03] MEDS: NYSTATIN 100,000 UNIT/GM CREAM 15 GM TOPICAL SCH ×2 (08:15→21:58)
[2016-10-03] MEDS: PANTOPRAZOLE SOD 20 MG DELAYED RELEASE TAB PO SCH (08:15)
[2016-10-03] MEDS: CHOLECALCIFEROL (VIT D3) 1000 UNIT TAB PO SCH (08:16)
[2016-10-03] MEDS: SODIUM CHLORIDE 0.9% FLUSH 10 ML FLUSH IV FLUSH SCH ×2 (08:17→21:56)
--- NOTE | 2016-10-03 11:58 | HHI.PR ---
Subjective Remarks Feeling better. Sitting up in the chair. Pain is controlled. tolerating liquid diet. Objective Vitals Vital Signs Date Time Temp Pulse Resp B/P Pulse Ox O2 Delivery O2 Flow Rate FiO2 10/03/16 11:03 97.6 68 18 124/63 95 10/03/16 11:03 75 10/03/16 10:04 70 10/03/16 09:17 61 10/03/16 08:53 92 Nasal Cannula 3.00 10/03/16 08:00 59 10/03/16 08:00 97.9 69 20 126/65 96 10/03/16 06:00 64 10/03/16 05:42 66 14 130/67 96 10/03/16 05:00 62 10/03/16 04:00 98.1 68 14 125/67 92 10/03/16 04:00 65 10/03/16 03:00 68 10/03/16 02:00 68 10/03/16 01:00 74 10/03/16 00:00 74 10/03/16 00:00 98.9 73 18 127/63 96 10/02/16 23:00 82 10/02/16 22:00 84 10/02/16 21:00 94 10/02/16 20:46 92 Nasal Cannula 3.00 10/02/16 20:00 94 10/02/16 19:57 99.6 95 20 144/72 99 10/02/16 19:00 106 10/02/16 18:00 109 10/02/16 18:00 97.5 92 20 182/72 92 10/02/16 17:00 100 10/02/16 16:00 98.5 77 16 160/71 95 Nasal Cannula 3 10/02/16 15:45 76 14 159/67 95 10/02/16 15:30 84 12 151/54 92 Nasal Cannula 3 10/02/16 15:15 74 12 99 10/02/16 15:00 73 12 157/70 99 10/02/16 14:45 74 12 135/70 97 Simple Mask 6 10/02/16 14:37 95 Mask 8 10/02/16 14:31 98.5 77 12 135/58 98 Mechanical Ventilator 10/02/16 14:30 50 10/02/16 14:30 98 50 10/02/16 14:25 98 100 I/O 10/02/16 10/02/16 10/02/16 10/03/16 10/03/16 10/03/16 07:00 15:00 23:00 07:00 15:00 23:00 Intake Total 640 ml 500 ml 920 ml 220 ml Output Total 950 ml 25 ml 1320 ml 545 ml Balance -310 ml 475 ml -400 ml -325 ml Intake Oral 240 ml 420 ml 120 ml IV Total 400 ml 500 ml 100 ml Other 500 ml Output Urine Total 950 ml 1200 ml 475 ml Drainage Total 120 ml 70 ml Estimated Blood Loss 25 ml # Bowel Movements 2 1 0 Result Diagram: 10/03/16 0530 10/03/16 0530 Imaging Last Impressions Chest X-Ray 10/02/16 0000 Signed Impressions: Service Date/Time: Sunday, October 02, 2016 15:52 - CONCLUSION: Submaximal inspiration. Subsegmental consolidation left lung base. Maldonado Danielson MD Renal Ultrasound 09/29/16 0000 Signed Impressions: Service Date/Time: Thursday, September 29, 2016 16:49 - CONCLUSION: 1. Atrophic kidneys. Small bilateral cysts. No hydronephrosis. Joe Torrez MD Myocardial Perfusion Scan Nuc Med 09/27/16 0600 Signed Impressions: Service Date/Time: September 10:16 - CONCLUSION: 1. No fixed or reversible perfusion defect is identified. 2. Normal left ventricle wall motion and ejection fraction. RISK CATEGORY: Low (<1%% Annual Mortality Rate) Esdras Hunt MD Abdomen/Pelvis CT 09/26/16 0925 Signed Impressions: Service Date/Time: Monday, September 26, 2016 10:02 - CONCLUSION: 1. Small hiatal hernia. 2. Hepatic steatosis. 3. Cholelithiasis. There is mild gallbladder wall thickening and gallbladder distention noted. The possibility of cholecystitis should be entertained. 4. Diverticulosis. Butch Watson MD Gall Bladder Ultrasound 09/26/16 0000 Signed Impressions: Service Date/Time: Monday, September 26, 2016 13:37 - CONCLUSION: 1. Cholelithiasis with gallbladder wall thickening. However, sonographic Mandujano's sign is negative. There are not definitive findings to diagnose acute cholecystitis by ultrasound. HIDA scan can help evaluate for cystic duct obstruction, if needed. 2. Hepatic steatosis. Esdras Hunt MD Chest CT 09/26/16 0000 Signed Impressions: Service Date/Time: Monday, September 26, 2016 17:14 - CONCLUSION: No acute cardiopulmonary process. Subcentimeter nodules along the right interlobar fissure consistent with small lymph nodes. No evidence of suspicious pulmonary mass Distended gallbladder with wall thickening. Abdelrahman Hernandez MD Objective Remarks GENERAL: Elderly female in no apparent distress. CARDIOVASCULAR: Normal rate and regular rhythm without murmurs, gallops, or rubs. RESPIRATORY: Good respiratory efforts. Breath sounds equal and clear to auscultation bilaterally. GASTROINTESTINAL: Abdomen soft, incision clean, drain in place on the right side. Normal active bowel sounds MUSCULOSKELETAL: Extremities without cyanosis, or edema. NEURO: Alert & Oriented x4 to person, place, time, situation. Moves all ext x4 PSYCH: Appropriate mood and affect. Procedures Laparoscopic cholecystectomy and umbilical hernia repair by Dr. Herrmann A/P Assessment and Plan 85-year-old female with: Acute cholecystitis/ Cholangitis CT of the abdomen revealed questionable cholecystitis. Right upper quadrant ultrasound also with cholelithiasis and gallbladder wall thickening. LFTs unremarkable. 09/27 pt with worsening RUQ abdominal pain and nausea as well as marked leukocytosis. Appreciate surgical consult. - Patient is status post laparoscopic cholecystectomy and umbilical hernia repair. Found to have gangrenous cholecystitis. - Pain control and antiemetics as needed. - PPI. - Continue Zosyn. Consider transitioning to oral antibiotics tomorrow. - blood cultures x 2. NGTD. A fib New onset. HR currently controlled. Echo with normal EF. TSH WNL. -Status post diltiazem gtt. - reduce Cardizem to 30 mg Q6H. Stable. - start ASA. Hold off on full anticoagulation considering alcohol abuse, fall risk and concern for noncompliance at this time. Chest pain/ Right hilar mass The patient presented with right-sided chest pain and chest x-ray cannot exclude a right hilar mass. EKG with sinus bradycardia and right bundle branch block. Trop peaked at 0.28. CT chest with contrast: No acute cardiopulmonary process; Subcentimeter nodules along the right interlobar fissure consistent with small lymph nodes; No evidence of suspicious pulmonary mass; Distended gallbladder with wall thickening. Stress test negative. - chest pain likely s/t above. - Advised outpatient follow-up. Discussed with the patient and her daughter. Pneumonia Repeat CXR with bibasilar infiltrates. -Continue azithromycin. Continue Zosyn. - nebs as needed. - incentive spirometry. Daily alcohol use The patient endorses 2-3 large glasses of wine daily. She has been somewhat tremulous. 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 No evidence of withdrawal at this point. - [facility] protocol. - Cessation instruction. - PT/ OT evals. ST cognitive eval requested. - folate, thiamine, MVI. HTN Blood pressure improved. - continue Cardizem. - Clonidine and Vasotec as needed. Acute renal failure Possibly secondary to decreased by mouth intake. FeNa consistent with prerenal etiology. Renal US: Atrophic kidneys; Small bilateral cysts; No hydronephrosis. Improving. - fluids. - Canales to monitor Is and Os. PPx: Heparin. Pema Lopes MD Oct 03, 2016 11:57
--- NOTE | 2016-10-03 18:31 | HHI.PR ---
Subjective Subjective Notes tee diet pain ok thankful for talking care of her \more alert Objective Vitals/I&O Vital Signs Date Time Temp Pulse Resp B/P Pulse Ox O2 Delivery O2 Flow Rate FiO2 10/03/16 18:10 62 10/03/16 15:11 98.0 18 113/66 93 10/03/16 08:53 Nasal Cannula 3.00 10/02/16 14:30 50 Labs Laboratory Tests Test 10/02/16 10/03/16 19:22 05:30 Blood Gas Puncture Site LT RADIAL Blood Gas Patient Temperature 98.6 Blood Gas HCO3 24 Blood Gas Base Excess 0.6 Blood Gas Oxygen Saturation 92 Arterial Blood pH 7.45 Arterial Blood Partial 35 Pressure CO2 Arterial Blood Partial 64 Pressure O2 Arterial Blood Oxygen Content 13.4 Arterial Blood 1.6 Carboxyhemoglobin Arterial Blood Methemoglobin 1.0 Blood Gas Hemoglobin 10.4 Oxygen Delivery Device NASAL CANNULA Blood Gas Liter Flow 3 White Blood Count 11.3 Red Blood Count 2.99 Hemoglobin 9.0 Hematocrit 26.9 Mean Corpuscular Volume 89.9 Mean Corpuscular Hemoglobin 30.1 Mean Corpuscular Hemoglobin 33.5 Concent Red Cell Distribution Width 13.3 Platelet Count 242 Mean Platelet Volume 8.8 Sodium Level 142 Potassium Level 3.9 Chloride Level 104 Carbon Dioxide Level 30.8 Anion Gap 7 Blood Urea Nitrogen 12 Creatinine 1.07 Estimat Glomerular Filtration 49 Rate Random Glucose 202 Calcium Level 8.4 Magnesium Level 1.8 Radiology Last Impressions Renal Ultrasound 09/29/16 0000 Signed Impressions: Service Date/Time: Thursday, September 29, 2016 16:49 - CONCLUSION: 1. Atrophic kidneys. Small bilateral cysts. No hydronephrosis. Joe Torrez MD Chest X-Ray 09/29/16 0000 Signed Impressions: Service Date/Time: Thursday, September 29, 2016 15:36 - CONCLUSION: 1. Mild basilar airspace disease similar to September 28. Trace pleural fluid. Joe Torrez MD Myocardial Perfusion Scan Nuc Med 09/27/16 0600 Signed Impressions: Service Date/Time: September 10:16 - CONCLUSION: 1. No fixed or reversible perfusion defect is identified. 2. Normal left ventricle wall motion and ejection fraction. RISK CATEGORY: Low (<1%% Annual Mortality Rate) Esdras Hunt MD Abdomen/Pelvis CT 09/26/16 0925 Signed Impressions: Service Date/Time: Monday, September 26, 2016 10:02 - CONCLUSION: 1. Small hiatal hernia. 2. Hepatic steatosis. 3. Cholelithiasis. There is mild gallbladder wall thickening and gallbladder distention noted. The possibility of cholecystitis should be entertained. 4. Diverticulosis. Butch Watson MD Gall Bladder Ultrasound 09/26/16 0000 Signed Impressions: Service Date/Time: Monday, September 26, 2016 13:37 - CONCLUSION: 1. Cholelithiasis with gallbladder wall thickening. However, sonographic Mandujano's sign is negative. There are not definitive findings to diagnose acute cholecystitis by ultrasound. HIDA scan can help evaluate for cystic duct obstruction, if needed. 2. Hepatic steatosis. Esdras Hunt MD Chest CT 09/26/16 0000 Signed Impressions: Service Date/Time: Monday, September 26, 2016 17:14 - CONCLUSION: No acute cardiopulmonary process. Subcentimeter nodules along the right interlobar fissure consistent with small lymph nodes. No evidence of suspicious pulmonary mass Distended gallbladder with wall thickening. Abdelrahman Hernandez MD Lungs: Clear Abdomen: Post-op tenderness Extremities: SCD's on Narrative Exam Patient on oxygen More alert Canales in place elyse in place A/P Problem List: (1) S/P umbilical hernia repair, follow-up exam (2) S/P laparoscopic cholecystectomy (3) Cholecystitis (4) A-fib (5) Elevated troponin (6) Umbilical hernia (7) EtOH dependence (8) Gallstones (9) Abnormal CT of the abdomen (10) RUQ abdominal pain (11) UTI (urinary tract infection) (12) Pneumonia (13) Confusion state (14) Abnormality of lung on CXR (15) Abnormal finding on EKG Assessment and Plan 85-year-old female with cholelithiasis cholecystitis post op day 1 Laparoscopic cholecystectomy umbilical hernia repair doing well leave elyse in place follow up in my office 1 week after discharge for ELYSE removal would benefit from rehab Problem Qualifiers (1) Umbilical hernia: Qualified Code: K42.9 - Umbilical hernia without obstruction and without gangrene Joe Herrmann MD Oct 03, 2016 18:31
[2016-10-03] MEDS: predniSONE 20 MG TAB PO SCH (21:55)
[2016-10-03] MEDS: CIPROFLOXACIN 500 MG TAB PO SCH (21:55)
[2016-10-04] VITALS (19 sets, daily range): BP systolic 126–147; BP diastolic 64–73; PULSE 53–80; RESP 16–20; TEMP 97.3–98.8; O2SAT 94–95
[2016-10-04] MEDS: DILTIAZEM HCL 30 MG TAB PO SCH ×3 (00:03→12:36)
[2016-10-04 07:02] LABS: HEMATOCRIT 27.6 % (35.0-46.0); MEAN CELL VOLUME 91.2 FL (80.0-100.0); MEAN CORPUSCULAR HEMOGLOBIN 28.9 PG (27.0-34.0); MEAN CORPUSCULAR HGB CONC 31.7 % (32.0-36.0); PLATELET COUNT 258 TH/MM3 (150-450); RED BLOOD COUNT 3.03 MIL/MM3 (4.00-5.30); RED CELL DISTRIBUTION WIDTH 13.4 % (11.6-17.2); REVIEW FLAG FINAL; WHITE BLOOD COUNT 17.7 TH/MM3 (4.0-11.0)
[2016-10-04 07:14] LABS: BICARBONATE 29.3 MEQ/L (21.0-32.0); POTASSIUM 3.5 MEQ/L (3.5-5.1)
[2016-10-04] MEDS: RESP: ALBUTEROL 2.5 MG/IPRATROPIUM 0.5 MG NEB (SCH) NEB (07:50)
[2016-10-04] MEDS: POLYETHYLENE GLYCOL 17 GM PKG PO SCH (08:59)
[2016-10-04] MEDS: DOCUSATE SODIUM 100 MG CAP PO SCH (08:59)
[2016-10-04] MEDS: SENNOSIDES 8.6 MG TAB PO SCH (08:59)
[2016-10-04] MEDS: SODIUM CHLORIDE 0.9% FLUSH 10 ML FLUSH IV FLUSH SCH (09:00)
[2016-10-04] MEDS: PANTOPRAZOLE SOD 20 MG DELAYED RELEASE TAB PO SCH (09:01)
[2016-10-04] MEDS: CHOLECALCIFEROL (VIT D3) 1000 UNIT TAB PO SCH (09:01)
[2016-10-04] MEDS: CIPROFLOXACIN 500 MG TAB PO SCH (09:01)
[2016-10-04] MEDS: predniSONE 20 MG TAB PO SCH (09:01)
[2016-10-04] MEDS: PRAVASTATIN SOD 20 MG TAB PO SCH (09:01)
[2016-10-04] MEDS: NYSTATIN 100,000 UNIT/GM CREAM 15 GM TOPICAL SCH (09:01)
[2016-10-04] MEDS: ASPIRIN EC 81 MG TABEC PO SCH (09:03)
--- NOTE | 2016-10-04 10:14 | MP ---
cc: JOE HERRMANN M.D. DATE OF SURGERY 10/02/2016 PREOPERATIVE DIAGNOSES 1. Cholelithiasis, cholecystitis. 2. Umbilical hernia. POSTOPERATIVE DIAGNOSES 1. Gangrenous cholecystitis. 2. Umbilical hernia. PROCEDURE Laparoscopic cholecystectomy with repair of an umbilical hernia. ANESTHESIA General. SURGEON Dr. Herrmann INDICATIONS The patient is a pleasant 85-year-old female who was admitted to the hospital a few days ago. Last week she had a bout of pneumonia, atrial fibrillation with rapid ventricular response, a UTI and acute cholecystitis. She also has an umbilical hernia. She down stabilized enough to undergo surgical intervention. PROCEDURE The patient is taken to the operating room, placed in supine position on the operating room table. After anesthesia her abdomen is prepped with Betadine. She is on scheduled antibiotics. We make an incision in the umbilicus after anesthetizing with Marcaine solution, dissect down through the umbilical hernia. A 10-mm trocar is placed in the umbilical hernia after it is reduced. The camera is introduced. Three other working ports ae placed, a 5-mm above the xiphoid, a 5-mm in between two previously placed ports and the third working port in the right lower quadrant. The gallbladder can be seen; it is obviously inflamed, acutely infected, gangrene, very tense. When we grab it, it ruptures and purulent material returns which is evacuated. We then are able to grasp the gallbladder superiorly and laterally, identifying the cystic duct. The cystic artery was nonexistent. Once we identified the cystic duct clearly, we doubly ligated and transected. The gallbladder is then teased off the gallbladder bed and placed in EndoCatch with some stones and passed off the field. We then irrigate copiously. Because of inflammation and oozing and because the patient is on anticoagulants, we place some Karen to assure hemostasis. CAROL is then placed in the gallbladder fossa and is secured to the skin with a 3-0 nylon. The trocar was then removed after irrigating and CO2 is removed. The umbilical hernia is then repaired with an interrupted 0 Vicryl suture and the skin is closed with a 4-0 Vicryl. Steri-Strips applied. Sterile bandage applied. The patient tolerated the procedure well. Discussed the operative findings with the daughter, Ludy, by phone - . Joe Herrmann MD JTAY/SSB /2:27 PM /10:03 AM
[2016-10-04] MEDS ORDERED: CIPR-9 PO (11:06)
[2016-10-04] MEDS ORDERED: OMEP40CA2 PO (11:06)
[2016-10-04] MEDS ORDERED: DILT31TA PO (11:06)
--- NOTE | 2016-10-04 11:53 | HHI.DS ---
Discharge Summary Admission Date Sep 26, 2016 at 16:09 Discharge Date: Oct 04, 2016 Admitting Diagnosis right sided chest pain/elevated troponin/cholecystitis (1) Cholecystitis ICD Code: K81.9 (2) Acute gangrenous cholecystitis ICD Code: K81.0 (3) Gallstones ICD Code: K80.20 (4) S/P laparoscopic cholecystectomy ICD Code: Z90.49 (5) S/P umbilical hernia repair, follow-up exam ICD Code: Z09 (6) A-fib ICD Code: I48.91 Procedures Laparoscopic cholecystectomy and umbilical hernia repair by Dr. Herrmann Brief History - From Admission HPI from the admitting physician: The patient is an 85-year-old female with a past medical history of hypertension and hyperlipidemia who is presenting to the hospital with chest pain. She says it is located in the middle and the right side of the chest and is quite severe at times. She is unsure of what makes it come and go. She also describes a pain that goes across her back which she states has been present for some time. She blames old age for the back pain. She denies any abdominal pain. She has not been vomiting. She does endorse decreased appetite for the past month. She says she has been weak and has been going to physical therapy. She says that she is weak in the legs. She says she is not using a cane or a walker because she does not want to use those devices at this time. The patient says she drinks 2-3 large glasses of wine daily. CBC/BMP: 10/04/16 0530 10/04/16 0530 Significant Findings Laboratory Tests Test 10/02/16 10/02/16 10/03/16 10/04/16 05:40 19:22 05:30 05:30 Red Blood Count 3.43 MIL/MM3 2.99 MIL/MM3 3.03 MIL/MM3 (4.00-5.30) (4.00-5.30) (4.00-5.30) Hemoglobin 10.2 GM/DL 9.0 GM/DL 8.7 GM/DL (11.6-15.3) (11.6-15.3) (11.6-15.3) Hematocrit 31.0 % 26.9 % 27.6 % (35.0-46.0) (35.0-46.0) (35.0-46.0) Potassium Level 3.2 MEQ/L (3.5-5.1) Creatinine 1.09 MG/DL 1.07 MG/DL (0.50-1.00) (0.50-1.00) Estimat Glomerular Filtration 48 ML/MIN (>89) 49 ML/MIN (>89) 54 ML/MIN (>89) Rate Arterial Blood pH 7.45 (7.380-7.420) Arterial Blood Partial 35 mmHg (38-42) Pressure CO2 Blood Gas Hemoglobin 10.4 G/DL (12.0-16.0) White Blood Count 11.3 TH/MM3 17.7 TH/MM3 (4.0-11.0) (4.0-11.0) Random Glucose 202 MG/DL 138 MG/DL (74-106) (74-106) Calcium Level 8.4 MG/DL (8.5-10.1) Mean Corpuscular Hemoglobin 31.7 % Concent (32.0-36.0) Blood Urea Nitrogen 20 MG/DL (7-18) Imaging Last Impressions Chest X-Ray 10/02/16 0000 Signed Impressions: Service Date/Time: Sunday, October 02, 2016 15:52 - CONCLUSION: Submaximal inspiration. Subsegmental consolidation left lung base. Maldonado Danielson MD Renal Ultrasound 09/29/16 0000 Signed Impressions: Service Date/Time: Thursday, September 29, 2016 16:49 - CONCLUSION: 1. Atrophic kidneys. Small bilateral cysts. No hydronephrosis. Joe Torrez MD Myocardial Perfusion Scan Nuc Med 09/27/16 0600 Signed Impressions: Service Date/Time: September 10:16 - CONCLUSION: 1. No fixed or reversible perfusion defect is identified. 2. Normal left ventricle wall motion and ejection fraction. RISK CATEGORY: Low (<1%% Annual Mortality Rate) Esdras Hunt MD Abdomen/Pelvis CT 09/26/16 0925 Signed Impressions: Service Date/Time: Monday, September 26, 2016 10:02 - CONCLUSION: 1. Small hiatal hernia. 2. Hepatic steatosis. 3. Cholelithiasis. There is mild gallbladder wall thickening and gallbladder distention noted. The possibility of cholecystitis should be entertained. 4. Diverticulosis. Butch Watson MD Gall Bladder Ultrasound 09/26/16 0000 Signed Impressions: Service Date/Time: Monday, September 26, 2016 13:37 - CONCLUSION: 1. Cholelithiasis with gallbladder wall thickening. However, sonographic Mandujano's sign is negative. There are not definitive findings to diagnose acute cholecystitis by ultrasound. HIDA scan can help evaluate for cystic duct obstruction, if needed. 2. Hepatic steatosis. Esdras Hunt MD Chest CT 09/26/16 0000 Signed Impressions: Service Date/Time: Monday, September 26, 2016 17:14 - CONCLUSION: No acute cardiopulmonary process. Subcentimeter nodules along the right interlobar fissure consistent with small lymph nodes. No evidence of suspicious pulmonary mass Distended gallbladder with wall thickening. Abdelrahman Hernandez MD PE at Discharge GENERAL: Elderly female in no apparent distress. CARDIOVASCULAR: Normal rate and regular rhythm without murmurs, gallops, or rubs. RESPIRATORY: Good respiratory efforts. Breath sounds equal and clear to auscultation bilaterally. GASTROINTESTINAL: Abdomen soft, incision clean, drain in place on the right side. Normal active bowel sounds MUSCULOSKELETAL: Extremities without cyanosis, or edema. NEURO: Alert & Oriented x4 to person, place, time, situation. Moves all ext x4 PSYCH: Appropriate mood and affect. Pt update on day of discharge Patient reports she is feelin ok today, breathing is stable. tolerating her diet. ready to go to rehab. Hospital Course 85-year-old female admitted and treated for the following: Acute cholecystitis/ Cholangitis CT of the abdomen revealed questionable cholecystitis. Right upper quadrant ultrasound also with cholelithiasis and gallbladder wall thickening. LFTs unremarkable. 09/27 pt with worsening RUQ abdominal pain and nausea as well as marked leukocytosis. - Patient is status post laparoscopic cholecystectomy and umbilical hernia repair. Found to have gangrenous cholecystitis. - Patient treated with Zosyn, transitioned to oral Cipro to complete the treatment course. She does have a drain in place to be removed outpatient by Surgery A fib New onset. HR currently controlled. Echo with normal EF. TSH WNL. - Status post diltiazem gtt. - Patient stable on Cardizem 30 mg Q6Hrs - Patient started on ASA. Concern for compliance and fall risk with alcohol use. Patient advised to discuss with PCP and Cardiology outpatient to weigh the risk and benefit of anticoagulation Chest pain/ Right hilar mass The patient presented with right-sided chest pain and chest x-ray cannot exclude a right hilar mass. EKG with sinus bradycardia and right bundle branch block. Trop peaked at 0.28. CT chest with contrast: No acute cardiopulmonary process; Subcentimeter nodules along the right interlobar fissure consistent with small lymph nodes; No evidence of suspicious pulmonary mass; Distended gallbladder with wall thickening. Stress test negative. - chest pain likely s/t above. - Advised outpatient follow-up. Discussed with the patient and her daughter. Pneumonia Repeat CXR with bibasilar infiltrates. - Patient treated with Zosyn and Azithromycin. Respiratory status markedly improved. She will use oxygen as needed. - incentive spirometry. Daily alcohol use The patient endorses 2-3 large glasses of wine daily. She has been somewhat tremulous. 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 No further evidence of withdrawal at this point - folate, thiamine, MVI. HTN Blood pressure improved. - continue Cardizem. Acute renal failure Possibly secondary to decreased by mouth intake. FeNa consistent with prerenal etiology. Renal US: Atrophic kidneys; Small bilateral cysts; No hydronephrosis. Renal failure resolved. Pt Condition on Discharge: Good Discharge Disposition: Discharge Home Discharge Time: > 30 minutes Discharge Instructions DIET: Follow Instructions for: As Tolerated, No Restrictions Activities you can perform: Regular-No Restrictions, Shower Only-No Bath Follow up Referrals: Surgical - 1 Week with Joe Herrmann MD New Medications: Ciprofloxacin (Cipro) 500 Mg Tab 500 MG PO Q12HR #14 TAB Diltiazem (Cardizem) 30 Mg Tab 30 MG PO Q6HR #120 TAB Changed Medications: Omeprazole (Omeprazole) 40 Mg Cap 40 MG PO DAILY #30 Ref 0 CAP (Changed from: Omeprazole 20 Mg Tab 20 Mg PO DAILY Ref 0) Continued Medications: Ascorbic Acid (Vitamin C) 500 Mg Cap 500 MG PO DAILY PRN ALLERGIES Ref 0 CAP Cholecalciferol (D3 Maximum Strength) 5,000 Unit Cap 1000 UNITS PO DAILY Nutritional Supplement Ref 0 CAP Fish Oil-Cholecalciferol (Fish Oil + D3) 1,200-1,000 Mg-Unit Cap 1 CAP PO TID Nutritional Supplement Ref 0 CAP Lysine HCl (Lysine) 500 Mg Tab Methylcobalamin (D12-Npigen) 1 Mg Chew Unknown Dose PO DAILY Nutritional Supplement Ref 0 TAB Simvastatin (Zocor) 10 Mg Tab 10 MG PO DAILY Cholesterol Management Ref 0 TAB Vitamin E (Topical) (Vitamin E) 100 Unit/Gm Cre 1000 PO ([tolterone]) Pema Lopes MD Oct 04, 2016 11:53
== END 2016-10-04 16:24 | DRG 417 ==
LOC: NEPE 08:53 → NEDA 11:31 → NEPHCDU 15:17 → OBSVTOIN 16:09 → HCIN 09-28 03:30 → HCIS 09-28 13:58
PROVIDERS: ADMIT Hospitalist; ATTEND Family Medicine
PROC: 0FT44ZZ Resection of Gallbladder, Percutaneous Endoscopic Approach (ICD-10-PCS; principal; 2016-10-02 12:18)
PROC: 0WQF4ZZ Repair Abdominal Wall, Percutaneous Endoscopic Approach (ICD-10-PCS; 2016-10-02 12:18)
DX: K80.00 Calculus of gallbladder with acute cholecystitis without obstruction (principal); J18.9 Pneumonia, unspecified organism; N17.9 Acute kidney failure, unspecified; K83.0 Cholangitis; N39.0 Urinary tract infection, site not specified; K76.6 Portal hypertension; R00.1 Bradycardia, unspecified; I48.91 Unspecified atrial fibrillation; I10 Essential (primary) hypertension; R73.9 Hyperglycemia, unspecified; I45.10 Unspecified right bundle-branch block; E78.5 Hyperlipidemia, unspecified; K42.9 Umbilical hernia without obstruction or gangrene; M19.90 Unspecified osteoarthritis, unspecified site; F10.20 Alcohol dependence, uncomplicated
CPT/HCPCS: 36600; 71010; 71260; 74177; 76705; 76775; 76937; 78452; 80048; 80053; 80076; 81001; 82140; 82550; 82570; 82805; 82948; 83036; 83605; 83690; 83735; 83880; 84300; 84443; 84484; 85007; 85025; 85027; 85379; 85610; 87040; 87086; 88302; 88304; 93005; 93017; 93306; 94002; 94150; 94640; 94664; 96374; 96375; A9502; C9113; J0280; J0456; J0690; J1170; J1644; J2060; J2405; J2543; J2710; J2785; J2920; J2930; J3480; J7030; J7042; J7050; J7512; Q9967